=== PATIENT | male | born 1955 | race Caucasian/White ===

== ENCOUNTER 2020-10-17 06:54 | Outpatient (CLI) | payer MEDICARE, OTHER, SELFPAY ==
--- NOTE | 2020-10-17 07:19 | NMCV_ITS ---
NM gwendolyn perf SPECT r/s* [id number] Reynaldo Bo Age: 65 Gender: M : 1955 Exam Date: 10/17/2020 08:05 Ordering Phys: Sadaf Chacko Technologist: KHALIF Rojas Exam Location: [facility] Indications: CARDIAC ARRHYTHMIA STRESS TEST Please see separate stress test report in Ephiphany for full findings IMAGE PROTOCOL Rest/Stress 1 Exercise Day Radiopharmaceutical Dose (mCi) Administration Site Administered by Rest: Tc-99m 10.7 IV KHALIF Renee Sestamibi Stress:Tc-99m 33.0 IV KHALIF Rojas Sestamibhavesh Rest: 17-Oct-2020 60 Discovery 630 Stress: 17-Oct-2020 30 Discovery 630 Radiopharmaceutical was injected at 86 % maximum heart rate. Images obtained in supine and prone position. SPECT RESULTS Technical Quality: Excellent Raw Data Analysis: Normal Image Corrections: No attenuation or motion correction applied Summed Stress Score: 17 Summed Rest Score: 13 Summed Difference Score: 6 PERFUSION FINDINGS Large sized perfusion abnormality of moderate to severe severity of entire inferior and basal to mid inferolateral augustin on rest images with mild reversibility in inferior and inferolateral augustin on stress images. FUNCTIONAL RESULTS (calculated via Gated SPECT) Stress Image LV EF (%): 46 Stress EDV (mL):181 TID: 0.95 Stress ESV (mL):97 FUNCTIONAL FINDINGS: The left ventricle is normal in size. Transient Ischemia Dilatation of 0.95. The left ventricular ejection fraction is mildly reduced with a value of 46%. There is mild hypokinesis of inferior wall. Increased end diastolic and end systolic volumes. IMPRESSIONS 1. Large sized perfusion abnormality of moderate to severe severity of entire inferior and basal to mid inferolateral augustin with mild reversibility in inferior and inferolateral augustin. 2. 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 3. The left ventricular ejection fraction is mildly reduced with a value of 46%. 4. There is mild hypokinesis of inferior wall. 5. No prior similar studies to compare. Natalie Del Valle MD (Electronically Signed) Final Date: 18 October 2020 22:59 S
--- NOTE | 2020-10-17 07:19 | ECG_ITS ---
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 Interpretive Statements NAME OF STUDY: EXERCISE SESTAMIBI STRESS TEST INDICATION: CHEST pain, frequent ventricular ectopy Baseline blood pressure of 140/84 mm Hg, heart rate 78 beats per minute and oxygen saturation of 97%. EKG showed normal sinus rhythm, normal axis with frequent isolated PVCs. Normal ST and T's. The patient exercised for 6 minutes on a standard Fran protocol. Patient attained a maximum heart rate of 134 beats per minute(87% of the maximum predicted heart rate) with a blood pressure at the peak exercise of 172/94 mm Hg and oxygen saturation of 85%. The EKG at the peak exercise revealed sinus tachycardia with 1 and half to 2 mm horizontal to upsloping ST depression in inferolateral leads. Patient did [not have any chest pain or any significant arrhythmis with the exercise. Patient developed intraprocedural shortness of breath that resolved by discharge. During the recovery phase, there were no new changes. Biphasic T waves noted in recovery in lead II, III, aVF, V5 and V6. Blood pressure at the end of the recovery phase was [168/94 mm Hg with a heart rate of 89 beats per minute and oxygen saturation 98%. Frequent isolated PVCs noted in recovery. CONCLUSION: 1. Positive EKG response to treadmill exercise. 2. No exercise-induced chest pain or cardiac arrhythmia. 3. Fair exercise tolerance, attained a maximum of 7 METs. Maximum VO2 of 24.5 mL/kg/min. 4. Baseline hypertension with normal response to exercise. 5. Perfusion scan will be documented separately. Electronically Signed On 10-17-2020 13:23:50 OLERICULTURIST by Natalie Del Valle M.D. [id number]
[2020-10-17 07:48] VITALS: BMI 28.1
[2020-10-17 09:22] VITALS: BP 168/94; PULSE 90
--- NOTE | 2020-10-17 12:45 | USCV_ITS ---
Reynaldo Bo Age: 65 Gender: M : 1955 Exam Date: 10/17/2020 09:36 Ordering Phys: Sadaf Chacko Technologist: Melissa Pierson Exam Location: [facility] [place] Indication: IRREGULAR HB BP: 140 / 70 HR: 77 Rhythm: Sinus Technical Quality: Adequate MEASUREMENTS (Male / Female) Normal Values 2D ECHO LV Diastolic Diameter PLAX 4.6 cm 4.2 - 5.9 / 3.9 - 5.3 cm LV Systolic Diameter PLAX 3.0 cm LV Chamber Size 4.0 cm IVS Diastolic Thickness 1.4 cm 0.6 - 1.0 / 0.6 - 0.9 cm IVS Systolic Thickness 1.6 cm LVPW Diastolic Thickness 1.1 cm 0.6 - 1.0 / 0.6 - 0.9 cm LVPW Systolic Thickness 1.3 cm RV Chamber Size 2.6 cm LVOT Diameter 2.0 cm LV Ejection Fraction 2D Teich 65.6 % LV Ejection Fraction MOD 2C 48.9 % LV Ejection Fraction 2C AL 52.5 % LA Diameter 3.9 cm LA Width 3.1 cm LA Height 5.4 cm RA Width 3.1 cm RA Height 4.0 cm Aorta at Sinotubular Diameter 3.9 cm M-MODE LV Diastolic Diameter MM 5.2 cm 4.2 - 5.9 / 3.9 - 5.3 cm LV Systolic Diameter MM 3.4 cm LV Ejection Fraction MM Teich 62.9 % IVS Diastolic Thickness MM 1.0 cm 0.6 - 1.0 / 0.6 - 0.9 cm IVS Systolic Thickness MM 1.8 cm LVPW Diastolic Thickness MM 1.1 cm 0.6 - 1.0 / 0.6 - 0.9 cm LVPW Systolic Thickness MM 1.6 cm RV Diastolic Diameter MM 0.9 cm Aortic Annulus Diameter 3.9 cm LA Ao Ratio MM 1.1 MV E Point Septal Separation 0.9 cm DOPPLER AV Peak Velocity 132.0 cm/s LVOT Peak Velocity 68.0 cm/s AV Area Cont Eq vti 2.5 cm squared AV Area Cont Eq pk 1.7 cm squared MV Area PHT 5.5 cm squared Mitral E to A Ratio 0.7 MV E' Velocity 38.0 cm/s Mitral E to MV E' Ratio 10.5 Mitral E to LV E' Lateral Ratio 9.4 Mitral E to LV E' Septal Ratio 12.2 TR Peak Velocity 106.9 cm/s TR Peak Gradient 4.6 mmHg TR Mean Velocity 60.0 cm/s TR Mean Gradient 1.8 mmHg TR Velocity Time Integral 27.3 cm TV Peak E Velocity 77.0 cm/s Right Atrial Pressure 3.0 mmHg Pulmonary Artery Systolic Pressu 7.6 mmHg PV Peak Velocity 62.0 cm/s RV Acceleration Time 0.1 s RV Ejection Time 0.3 s RV AcT/ET 0.5 FINDINGS Left Ventricle Dyskinetic basal and mid inferior wall segment. Mild hypokinesia of the apical septum. Overall ejection fraction around 45 to 50%.Grade I/IV diastolic dysfunction (abnormal relaxation filling pattern), normal to mildly elevated filling pressures. Right Ventricle Normal right ventricular size and systolic function. Right Atrium The right atrium is normal in size. Left Atrium The left atrium upper limit of normal size Mitral Valve Mildly thickened mitral valve. Aortic Valve Mild aortic valve regurgitation. Thickened aortic valve Tricuspid Valve Trace tricuspid valve regurgitation. Pulmonic Valve Structurally normal pulmonic valve without significant stenosis. There is no pulmonic regurgitation. Pericardium Normal pericardium without effusion. Aorta Normal ascending aorta dimension. CONCLUSIONS Normal LV size with diminished ejection fraction of 45 to 50%. Wall motion of normalities as mentioned above. Type I diastolic dysfunction. The left atrium upper limit of normal size. Mild aortic valve regurgitation. Thickened aortic valve. Mildly thickened mitral valve. There is no pericardial effusion. There are no intracardiac masses. Dr Philomena Garcia MD FACC (Electronically Signed) Final Date: 27 October 2020 18:43 S
== END 2020-10-17 06:55 | disposition home or self-care (01) ==
LOC: CDL 06:57
PROVIDERS: PCP Nurse Practitioner Family; Visit Provider Nurse Practitioner Family
DX: I49.3 Ventricular premature depolarization (principal); I49.8 Other specified cardiac arrhythmias; I49.9 Cardiac arrhythmia, unspecified; I35.8 Other nonrheumatic aortic valve disorders; R07.9 Chest pain, unspecified; I10 Essential (primary) hypertension
CPT/HCPCS: 78452; 93017; 93306; A9500

== ENCOUNTER → 2021-01-29 10:19 | Outpatient (BNVA) | payer MEDICARE, OTHER, SELFPAY | PROVIDERS: PCP Nurse Practitioner Family; Visit Provider Internal Medicine Cardiovascular Disease | DX: Z20.822 Contact with and (suspected) exposure to COVID-19 (principal) | CPT/HCPCS: 87635 ==

== ENCOUNTER 2021-02-04 07:42 | Day surgery (SDC) | payer MEDICARE, OTHER, SELFPAY ==
[2021-01-29 10:08] LABS: Basophils # 0.1 10^3/uL (0.0-0.1); Eosinophils # 0.2 10^3/uL (0.0-0.8); Hematocrit 53.1 % (42.0-52.0); Hemoglobin 17.1 g/dL (11.7-16.6); Lymphocytes % 32.4 %; Mean Corpuscular HGB Conc 32.2 g/dL (30.0-36.0); Mean Corpuscular Hemoglobin 30.1 pg (28.0-34.0); Mean Corpuscular Volume 93.5 fL (80-94); Mean Platelet Volume 10.5 fL (7.4-10.4); Monocytes # 0.4 10^3/uL (0.2-0.9); Monocytes % 6.9 %; Neutrophils # 3.54 10^3/uL (1.8-7.7); Neutrophils % 56.5 %; Nucleated Red Blood Cells % 0 %; Platelet Count 247 10^3/cmm (130-400); Red Blood Count 5.68 10^6/uL (4.1-5.3); Red Cell Distribution Width 13.2 % (12.1-15.1); White Blood Count 6.3 10^3/uL (4.0-10.0)
[2021-01-29 10:22] LABS: INR 0.99 (0.8-1.2)
[2021-01-29 10:52] LABS: Anion Gap 11.8 (5-19); Blood Urea Nitrogen 16 mg/dL (8-23); Calcium 9.8 mg/dL (8.5-10.5); Carbon Dioxide 31 mmol/L (22-29); Chloride 102 mmol/L (98-107); Glomerular Filtration Rate 84.4 mL/min (90-130); Glucose 100 mg/dL (65-115); Osmolality Calculated 291 mOsm/kg (285-295); Potassium 4.8 mmol/L (3.5-5.1); Sodium 140 mmol/L (136-145)
[2021-02-04] VITALS (24 sets, daily range): BP systolic 104–146; BP diastolic 66–91; PULSE 63–85; RESP 11–23; TEMP 36.7–36.8; O2SAT 93–97; BMI 29.5
--- NOTE | 2021-02-04 07:30 | XACV_ITS ---
Ht: 191 cm Wt: 107 kg BSA: 2.40 m2 Gender: Male : 1955 Any Known Allergies: No known allergies Exam Priority: Routine Procedure(s): Procedure Description: Diagnostic procedure Diagnostic Cath Status: Elective Diagnostic Findings * LM has 0% stenosis. * mLAD: Severe 75% stenosis, CHRISTIANNE: 3 flow. * 1st Diag: Severe 99% stenosis, CHRISTIANNE: 2 flow. * mCIRC: Severe 100% stenosis, CHRISTIANNE: 0 flow. * mRCA: Severe 100% stenosis, CHRISTIANNE: 0 flow. * aMarg2: Severe 90% stenosis, CHRISTIANNE: 3 flow. * dLAD to dCIRC collateralization. * Coronary angiography shows right dominance. Conclusions 1. Indication for Clinical Quality Assurance Specialist worsening of angina, abnormal stress test 2. 1-Left main is normal without significant stenosis2-LAD is moderate size and caliber vessel with mid 75% stenosis, diagonal 1 is small caliber and size vessel with 99% ostial occlusion with CHRISTIANNE II flow3-LCx is moderate size and caliber vessel possibly codominant with mid chronic total occlusion however distal vessel fills retrogradely with collaterals from left to left, obtuse marginal 1 is moderate size and caliber vessel without significant stenosis4-RCA is chronically 100% occluded in the mid with also 90% stenosis in proximal acute marginal branch 3. . 4. No significant gradient across the aortic valve was noted.. 5. There is severe coronary artery disease with three vessel disease. 6. The apex, mid posterior, mid septum, anterolateral, mid inferior augustin are hypokinetic. 7. Mild left ventricular systolic dysfunction. Ejection fraction of 45%. Recommendations * 1-Return to ICU for close monitoring and routine PCI care 2-Continue IV heparin drip as per ACS protocol 3-Dc Plavix for possible CABG 4-Statin with LDL goal of 70 mg/dl, aspirin 81 mg p.o. daily for life long 5-CT surgery consults for CABG 6-Optimal medical management for AK 7-Follow up with cardiology in four weeks and establish care with primary care physician. Diagnostic RX Recommendation: CABG Ventriculography Ejection Fraction: 45.0 % Left Ventriculography Findings: * Anterior apical and mid to distal inferior and mid to distal lateral wall severe hypokinesis, moderately depressed LV function 45%. Pressures Phase:Rest AO : 101 / 67 ( 83 ) @ 5:33:00 AM 118 / 69 ( 91 ) @ 5:44:00 AM 117 / 69 ( 91 ) @ 5:44:00 AM LV : 113 / 7 / @ 5:43:00 AM 117 / 7 / @ 5:44:00 AM 123 / 0 / @ 5:44:00 AM 124 / 0 / @ 5:44:00 AM Valves Phase:DefaultPhase AV : 6.0 @ 10:52:06 AM AV Mean Gradient: 11.0 @ 10:52:06 AM Clinical Evaluation EBL: 5mL-10mL Procedural Details Procedure Consent Obtained. Pre-Procedure Time Out. Identified patient by full name and date of as verbalized by the patient/guarantor. Does the consent match the physician's order: Yes. Accurate & Complete Informed Consent: Yes. Inpatient/Outpatient History & Physical on Chart: Yes. If H&P is completed, is and addenduem needed: No; If yes, is the addendum complete: N/A. Visualize and Verify Site with Patient/Guarantor: N/A. Relevant Radiology Images available: N/A. Pre-op teaching completed and patient verbalized understanding. The risks, benefits, and alternatives of sedation and/or procedure were discussed by physician. The patient agrees to continue. Procedure started. Correct patient, site and procedure confirmed by cath team. Current diagnosis: Chest Pain. PERRLA. Strong, equal hand tube man bilaterally. Lungs clear x 5 lobes. IV Site on Arrival: 20 gauge in the left anticubital. Pre Procedural Pulses: right dorsalis pedis was 1+. Pre Procedural Pulses: left dorsalis pedis was Doppled. Pre Procedural Pulses: bilateral posterior tibial was 2+. Pre Procedural Pulses: bilateral radial was 3+. Oxygen started at 2liters/min via nasal canula. right groin was prepped with chloroprep then draped in the usual sterile fashion. right radial was prepped with chloroprep then draped in the usual sterile fashion. Physician notified. Baseline sample Acquired. HR: 78 BPM. [facility] Clinical Fraility Score: 3: Managing Well. Clinical Quality Assurance Specialist Indications: Worsening Angina. Chest Pain Symptom Assessment: Typical Angina Symptoms. Physician arrived. Physician scrubbed in. Immediate Pre-Procedure Time Out. Correct Patient: Yes; Correct Procedure: Yes; Correct Site: Yes; Correct Patient Position: Yes; Correct Supplies: Yes; Dried Flammable Prep: Yes; Blood Products Available: N/A;. Lidocaine 1% infiltrated to the right radial. Arterial access obtained. A 5 botswanan TIG catheter in over wire. Catheter redirected to the LCA. Catheter redirected to the LV. Catheter removed over the exchange wire. A 5 botswanan Angled Pig catheter in over wire. EDP Sample taken: LV 113/7,15; HR: 69 BPM; SpO2: 98%. EDP Sample taken: LV 117/7,14; HR: 70 BPM; SpO2: 97%. LV gram performed in FOWLER @ 10 mL/second for a total of 30 mL. EDP Sample taken: LV 123/0,15; HR: 81 BPM; SpO2: 97%. Pullback taken: LV 124/-1,15; AO 118/69(91); Mean: 11mmHg, Peak to Peak: 6mmHg, SEP: 15sec/min; HR: 67 BPM; SpO2: 98%. Catheter removed over the exchange wire. Physician scrubbed out. A TR Band was successful obtaining hemostatsis at the Right Radial artery insertion site. TR band placed. Hemostasis obtained. Post Procedure: Pulses reassessed and unchanged. PERRLA. Strong, equal hand tube man bilaterally. No VTE prophylaxis required. No VTE prophylaxis required. Medication's Wasted: Lidocaine 1% = 18 mL. Medication's Wasted: Heparin = 1000 units. Medication's Wasted: Nitro = 49.8 mg. Total IV fluids: 32.4 mL. Contrast type used: Visipaque 320 mgI/mL, 500 mL bottle. Post-op diagnosis: multivessel CAD. Complications: none. Estimated blood loss: 5mL-10mL. Estimated blood loss: 5mL-10mL. Procedure completed. Patient transferred by wheelchair to 1st floor. Vital chart was stopped. Access Site Site: Right Radial artery Sheath Size: 6 Fr Hemostasis Method: TR Band Hemostasis Success: Successful Procedure Medications Start: 10:29 AM Stop: 10:29 AM Medication: Versed Amount: 1 mg Route: I.V. Start: 10:29 AM Stop: 10:29 AM Medication: Fentanyl Amount: 50 mcg Route: I.V. Start: 10:23 AM Stop: 10:23 AM Medication: Versed Amount: 1 mg Route: I.V. Start: 10:23 AM Stop: 10:23 AM Medication: Fentanyl Amount: 50 mcg Route: I.V. Start: 10:30 AM Stop: 10:30 AM Medication: Nitrogylcerin Amount: 200 mcg Route: I.A. Start: 10:33 AM Stop: 10:33 AM Medication: Heparin Amount: 5000 units Route: I.V. I, the attending physician, have reviewed and verified all procedure medications. Yes, all medications given per verbal order History/Risk Factors Hypertension: No Dyslipidemia: No Peripheral Arterial Disease (PAD): No Myocardial Infarction (AK): No Obesity: No Renal Disease: No Tobacco Use: Never Prior Interventions PCI: No CABG: No Valve Surgery: No Report Signatures Finalized by Lashon Taylor MD on 02/11/2021 01:46 PM
--- NOTE | 2021-02-04 10:13 | W.PM.OPSFHP ---
Same Day Surgery H&P Indication for Procedure/HPI DATE OF PROCEDURE: February 04, 2021 CHIEF COMPLAINT/INDICATIONFOR SURGICAL PROCEDURE: Abnormal stress test, arrhythmia/PVCs, shortness of breath chest pain PREOP DIAGNOSIS: LV dysfunction, abnormal stress test, arrhythmia/PVCs PLANNED PROCEDRUE: Operation Date: 02/04/21 08:30 Proposed Procedures p left Cardiac Catheterization 25303 R03.0(Left) - Lashon Taylor MD 65-year-old male past medical history significant for hypertension hyperlipidemia strong family stiff coronary disease for worsening of arrhythmia/PVCs LV dysfunction with mild depression of LV function and abnormal stress test is here for left heart cath. Patient has been explained all risk benefit and already for the procedure by myself. He has been explained the risk of stroke arrhythmia major minor bleed urgent emergent bypass surgery in worse case scenario . He has been explained risk of hematoma infection bruising. Patient has taken 300 mg of Plavix last night and 75 mg this morning. We will proceed with left heart cath and PCI if indicated Medications/Allergies* Allergies/Adverse Reactions Allergy/AdvReac Type Severity Reaction Status Date / Time No Known Allergies Allergy Verified 12/15/20 09:43 Pertinent History/Comorbid Conditions* Medical History (Updated 12/17/20 @ 08:29 by Natalie Del Valle MD) Abnormal cardiovascular stress test Frequent PVCs LV dysfunction Family History (Updated 12/15/20 @ 09:44 by Cindy Eric RN) Diabetes Mother Stroke Father Brother Denies family history of CAD (coronary artery disease) Hyperlipidemia Hypertension Social History Smoking and tobacco status: never smoked Alcohol intake: current Alcohol intake frequency: holidays/special occasions only Pertinent Exam Findings alert, oriented x 3, clear to auscultation bilaterally and regular rate & rhythm GENERAL: Patient is alert, awake and oriented x3. NECK: No jugular vein distension. HEENT: No cyanosis. No icterus. No pallor. HEART: Regular S1 and S2. No murmur, rub or gallop. LUNGS: Clear to auscultate bilaterally. CENTRAL NERVOUS SYSTEM: Grossly nonfocal. 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
[2021-02-04] MEDS: aspirin 81 mg EC Tablet PO (12:18)
[2021-02-04] MEDS: atorvastatin 40 mg Tablet 20 MG PO (12:18)
--- NOTE | 2021-02-04 13:46 | USCV_ITS ---
Reynaldo Bo Age: 65 Gender: M : 1955 Exam Date: 02/04/2021 14:20 Ordering Phys: Natalie Del Valle MD ([email or web address]) Technologist: Graciela Ignacio [place]am Location[place] [facility] [place] Indication: PRE CABG Risk Factors: Previous Vascular Surgery: Right Brachial BP: / Left Brachial BP: / Right Left Velocity (cm/s) Spectral Plaque Velocity (cm/s) Spectral Plaque Syst/Diast Broadening Syst/Diast Broadening 117.00/18.10 Prox CCA 158.50/ 14.00 129.00/23.30 Mid CCA 124.30/ 21.80 101.40/24.30 Distal CCA 101.20/ 25.00 57.30/ 18.80 Prox ICA 61.70 / 14.30 67.00/ 23.20 Mid ICA 69.50 / 20.90 72.60/ 26.00 Distal ICA 63.90 / 15.40 67.80 ECA 101.20 0.56 ICA/CCA 0.44 Not Vertebral Antegrade Visualized / cm/s 38.80/ 9.30 cm/s Tri Subclavian Tri 213.9 181.7 0 0 FINDINGS Minimal plaques at the bifurcations bilaterally Intimal thickening in the common carotid arteries bilaterally CONCLUSIONS Minimal plaques at the bifurcations bilaterally. Less than 50% stenosis bilaterally Dr Philomena Garcia MD [facility] (Electronically Signed) Final Date: 04 February 2021 23:34 S
--- NOTE | 2021-02-04 13:46 | USCV_ITS ---
Reynaldo Bo Age: 65 Gender: M : 1955 Exam Date: 02/04/2021 14:09 Ordering Phys: Natalie Del Valle MD ([email or web address]) Technologist: Graciela Ignacio Exam Location: [facility] [place] Indication: PRE CABG RIGHT LEFT LOWER EXTREMITY Diameter Diameter (cm) (cm) 0.69 High Thigh 0.53 0.36 Mid Thigh 0.42 0.45 Above Knee 0.36 0.36 Below Knee 0.32 0.22 Mid Calf 0.23 0.27 Ankle 0.33 RIGHT LEFT UPPER EXTREMITY The Upper Extremity section is not evaluated at this time Findings Patent veins bilaterally with no evidence of thrombosis Conclusions Patent normal caliber superficial veins bilaterally in the lower extremities with no evidence of thrombosis The venous dimensions as mentioned above Dr Philomena Garcia MD FAC (Electronically Signed) Final Date: 04 February 2021 23:29 S
== END 2021-02-04 16:47 | disposition home or self-care (01) ==
LOC: CCL 07:42 → CSU 11:16
PROVIDERS: PCP Nurse Practitioner Family; Visit Provider Internal Medicine Cardiovascular Disease
DX: I65.23 Occlusion and stenosis of bilateral carotid arteries (principal); I10 Essential (primary) hypertension; E78.5 Hyperlipidemia, unspecified; Z01.810 Encounter for preprocedural cardiovascular examination
CPT/HCPCS: 36415; 80048; 85025; 85610; 93452; 93880; 93970; C1769; C1887; C1894; J1644; J2250; J3010; J3490; J7030; Q0163; Q9967

== ENCOUNTER → 2021-03-04 13:01 | Outpatient (BNVA) | payer MEDICARE, OTHER, SELFPAY | PROVIDERS: PCP Nurse Practitioner Family; Visit Provider Thoracic Surgery (Cardiothoracic Vascular Surgery) | DX: I25.10 Atherosclerotic heart disease of native coronary artery without angina pectoris (principal) | CPT/HCPCS: 87635 ==

== ENCOUNTER 2021-03-08 11:16 | Emergency (ER) | payer MEDICARE, OTHER, SELFPAY ==
[2021-03-08 11:44] VITALS: BP 158/90; PULSE 85; RESP 18; TEMP 37; O2SAT 97; BMI 29.0
[2021-03-08 12:04] VITALS: O2SAT 96
--- NOTE | 2021-03-08 12:22 | ECG_ITS ---
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 Measurements Intervals Carlyle Rate: 79 P: 53 ND: 162 QRS: -24 QRSD: 113 T: 24 QT: 365 QTc: 420 Interpretive Statements SINUS RHYTHM No previous ECG available for comparison Electronically Signed On 03-08-2021 15:35:47 CDT by Yoandy Marin M.D. [id number]
--- NOTE | 2021-03-08 12:22 | XRR_ITS ---
PROCEDURE INFORMATION: Exam: XR Chest Exam date and time: 03/08/2021 12:34 PM Age: 65 years old Clinical indication: Cough; Additional info: Fatigue, cough TECHNIQUE: Imaging protocol: XR of the chest. Views: 1 view. COMPARISON: CR XR chest 2V* [id number] 03/04/2021 12:43 PM FINDINGS: Lungs: Unremarkable. No consolidation. Pleural spaces: Unremarkable. No pleural effusion. No pneumothorax. Heart/Mediastinum: Unremarkable. No cardiomegaly. Bones/joints: Unremarkable. XR/XR chest 1V portable [id number] IMPRESSION: No acute findings.
--- NOTE | 2021-03-08 12:23 | ED_ITS ---
HPI - URI/Sore Throat General: Chief Complaint: Headache Stated Complaint: COLD SYMPTOMS Time Seen by Provider: 03/08/21 12:02 Source: patient Mode of arrival: ambulatory Limitations: no limitations History of Present Illness: HPI Narrative: Patient is a nice 65-year-old male who presents to ED today along with his for evaluation of nasal drainage, scratchy throat, mild cough, and fatigue. Patient tells me he normally would not have bothered coming to the ED however he is scheduled for a CABG tomorrow by Dr. Streeter. He had preop labs/work-up performed on Tuesday but he states he felt normal at that visit. He tells me yesterday he began noticing some nasal stuffiness and drainage. He thought it was initially related to allergies and possibly due to the COVID swab that he had performed. He complains of some mild post nasal drainage that he states is making his throat scratchy. He reports a mild non-productive cough. He does report a little twinge in my chest when he coughs. He reports fatigue-states he has never had fatigue related to his CAD. No fevers. MD elicited complaint: cough, sore throat, rhinorrhea and nasal congestion Onset (ago): day(s) (yesterday) Severity: mild Description of mucous: clear Able to tolerate fluids by mouth: Yes Exacerbating factors: nothing Relieving factors: nothing Associated symptoms: Deny chills, ear or mastoid pain, fever(s), headache(s), nasal congestion, nausea, sinus pain or vomiting Treatments prior to arrival: none Review of Systems Const: Reports: fatigue; Denies: fever(s), chills or body aches Eyes: Denies: change in vision, blurry vision or photophobia ENMT: Reports: odynophagia ( scratchy ), nasal discharge and post nasal drip; Denies: ear or mastoid pain, nasal congestion or sinus pain Card: Reports: chest pain (when coughing); Denies: palpitations, irregular heart rhythm, edema, lightheadedness, syncope or pre-syncope Resp: Reports: non-productive cough; Denies: dyspnea, productive cough, wheezing, change in phlegm color, hemoptysis or chest congestion GI: Denies: nausea or vomiting Musc: Denies: neck pain Skin/Breast: Denies: rash Neuro: Denies: headache(s), numbness in extremities, weakness in extremities, sensory changes or dizziness [facility] ED PFSH: Medical History (Updated 03/08/21 @ 16:09 by ELIZABETH Beasley) 3-vessel coronary artery disease Abnormal cardiovascular stress test Frequent PVCs LV dysfunction Family History Father Stroke Brother Stroke Mother Diabetes Denies family history of CAD (coronary artery disease) Hyperlipidemia Hypertension Social History Smoking and tobacco status: never smoked Alcohol intake: current Alcohol intake frequency: holidays/special occasions only Physical Exam Const: COMMON NORMALS: no acute distress, patient oriented x3, no limitations and alert GENERAL APPEARANCE: cooperative HENMT: COMMON NORMALS: normocephalic, atraumatic, hearing grossly normal bilaterally, external ears normal, EAC's normal, TM's normal bilaterally, Normal external nose present, Normal nasal mucous membranes and turbinates present, moist oral mucous membranes and oropharynx normal HEAD & SCALP: normal to inspection, normocephalic and atraumatic FACE & SINUS: normal facial exam and sinuses nontender NOSE: Normal external nose present and Normal nasal mucous membranes and turbinates present EXTERNAL EAR: Yes external ears normal EXTERNAL AUDITORY CANAL: EAC's normal TYMPANIC MEMBRANE: TM's normal bilaterally MOUTH: Normal oral and palatal mucosa present, lip normal and tongue normal THROAT: posterior oropharynx normal, tonsils normal and uvula midline Eye: GENERAL EYE: appearance normal, both eyes and all related structures Neck/C-Spine: COMMON NORMALS: full ROM, no lymphadenopathy and no meningeal signs Resp: COMMON NORMALS: normal respiratory effort and clear to auscultation bilaterally AUSCULTATION: clear to auscultation bilaterally Cardio: COMMON NORMALS: regular rate and regular rhythm RATE: regular rate RHYTHM: regular rhythm Neuro: COMMON NORMALS: patient oriented x3 SENSORIUM/ORIENTATION: Yes alert MENINGEAL SIGNS: Yes no meningeal signs Skin: COMMON NORMALS: no rashes or lesions noted GENERAL SKIN EXAM: no rashes or lesions noted Course ED course: Patient states he is already feeling better. Labs show some nonspecific LFTs. He is not complaining of abdominal pain, nausea, vomiting, or changes to bowel habits. No fevers. Covid is negative. CXR is normal. EKG and repeat EKG showing no ischemic changes. Initial troponin elevated at 65 with a negative delta. Spoke to Dr. Streeter who at this time recommends patient still check in for his surgery and they will reassess him at that time for any worsening symptoms and determine whether to proceed with surgery or reschedule. Consultations: Consultation #1: Dr. Streeter-recommends pt still check in at 5am for his procedure tomorrow and they will reassess him again and determine whethe r to proceed with surgery at that time. Vital Signs: Vital signs: Vital Signs Temperature 98.6 F 03/08/21 11:44 Pulse Rate 84 03/08/21 15:55 Respiratory Rate 17 03/08/21 13:08 Blood Pressure 144/86 03/08/21 15:55 Pulse Oximetry 98 03/08/21 15:55 MDM - URI/Sore Throat Lab Data: Labs: Lab Results 03/08/21 03/08/21 03/08/21 Range/Units 13:04 13:04 13:04 WBC 5.8 (4.0-10.0) 10^3/ uL RBC 5.28 (4.1-5.3) 10^6/u L Hgb 16.2 (11.7-16.6) g/dL Hct 49.3 (42.0-52.0) % MCV 93.4 (80-94) fL MCH 30.7 (28.0-34.0) pg MCHC 32.9 (30.0-36.0) g/dL RDW 13.2 (12.1-15.1) % Plt Count 208 (130-400) 10^3/c mm MPV 10.3 (7.4-10.4) fL Neut % (Auto) 53.5 % Lymph % (Auto) 23.7 % Pitkin % (Auto) 14.3 % Eos % (Auto) 7.3 % Baso % (Auto) 0.9 % Neut # (Auto) 3.08 (1.8-7.7) 10^3/u L Lymph # (Auto) 1.4 (0.8-4.8) 10^3/u L Pitkin # (Auto) 0.8 (0.2-0.9) 10^3/u L Eos # (Auto) 0.4 (0.0-0.8) 10^3/u L Baso # (Auto) 0.1 (0.0-0.1) 10^3/u L Nucleated RBC % (a uto) 0 % Nucleated RBCs # 0.0 /100WBC Sodium 138 (136-145) mmol/L Potassium 5.0 (3.5-5.1) mmol/L Chloride 103 (98-107) mmol/L Carbon Dioxide 27 (22-29) mmol/L Anion Gap 13.0 (5-19) BUN 11 (8-23) mg/dL Creatinine 0.8 (0.7-1.2) mg/dL GFR Calculation 96.7 (90-130) mL/min Glucose 112 (65-115) mg/dL Calculated Osmolal ity 286 (285-295) mOsm/k g Calcium 9.0 (8.5-10.5) mg/dL Total Bilirubin 1.6 H (0.15-1.2) mg/dL AST 50 H (0-40) U/L ALT 54 H (0-41) U/L Alkaline Phosphata se 154 H (40-130) IU/L Troponin T Gen 5 n g/L 65 H (0-15) ng/L Total Protein 6.3 L (6.6-8.7) g/dL Albumin 4.2 (3.5-5.2) g/dL Globulin 2.1 (1.3-4.6) g/dL SARS-CoV-2 Ag (Rap id) (Negative) 03/08/21 03/08/21 Range/Units 13:06 15:15 WBC (4.0-10.0) 10^3/ uL RBC (4.1-5.3) 10^6/u L Hgb (11.7-16.6) g/dL Hct (42.0-52.0) % MCV (80-94) fL MCH (28.0-34.0) pg MCHC (30.0-36.0) g/dL RDW (12.1-15.1) % Plt Count (130-400) 10^3/c mm MPV (7.4-10.4) fL Neut % (Auto) % Lymph % (Auto) % Pitkin % (Auto) % Eos % (Auto) % Baso % (Auto) % Neut # (Auto) (1.8-7.7) 10^3/u L Lymph # (Auto) (0.8-4.8) 10^3/u L Pitkin # (Auto) (0.2-0.9) 10^3/u L Eos # (Auto) (0.0-0.8) 10^3/u L Baso # (Auto) (0.0-0.1) 10^3/u L Nucleated RBC % (a uto) % Nucleated RBCs # /100WBC Sodium (136-145) mmol/L Potassium (3.5-5.1) mmol/L Chloride (98-107) mmol/L Carbon Dioxide (22-29) mmol/L Anion Gap (5-19) BUN (8-23) mg/dL Creatinine (0.7-1.2) mg/dL GFR Calculation (90-130) mL/min Glucose (65-115) mg/dL Calculated Osmolal ity (285-295) mOsm/k g Calcium (8.5-10.5) mg/dL Total Bilirubin (0.15-1.2) mg/dL AST (0-40) U/L ALT (0-41) U/L Alkaline Phosphata se (40-130) IU/L Troponin T Gen 5 n g/L 63 H (0-15) ng/L Total Protein (6.6-8.7) g/dL Albumin (3.5-5.2) g/dL Globulin (1.3-4.6) g/dL SARS-CoV-2 Ag (Rap id) Negative (Negative) Imaging Data^: CXR: Radiologist's impression: [address] [address] XRay Report Signed Patient: Reynaldo Bot #: [id number] : 4Acct#:[id number] Age/Sex: 65 / MADM Date: 03/08/21 Loc: ERRoom/Bed: Attending Dr: Ordering Provider/Ordering MD: Zoë Espinal Date of Service: 03/08/21 Procedure(s): XR chest 1V portable [id number] Accession Number(s): [id number] Report Number: [id number] PROCEDURE INFORMATION: Exam: XR Chest Exam date and time: 03/08/2021 12:34 PM Age: 65 years old Clinical indication: Cough; Additional info: Fatigue, cough TECHNIQUE: Imaging protocol: XR of the chest. Views: 1 view. COMPARISON: CR XR chest 2V* [id number] 03/04/2021 12:43 PM FINDINGS: Lungs: Unremarkable. No consolidation. Pleural spaces: Unremarkable. No pleural effusion. No pneumothorax. Heart/Mediastinum: Unremarkable. No cardiomegaly. Bones/joints: Unremarkable. XR/XR chest 1V portable [id number] IMPRESSION: No acute findings. Dictated By:Jenny Whiting MD Signed By:Jenny Whitingigned Date/Time:03/08/211410 DD/ 140 Discharge Plan Discharge Patient Disposition: Home Clinical Impression: Post-nasal drainage Condition: Stable Prescriptions: No Action aspirin 81 mg tablet,delayed release (DR/EC) 81 mg PO DAILY Qty: 30 RF: 0 nitroglycerin 0.4 mg tablet, sublingual 0.4 mg sublingual Q5M PRN (Reason: chest pain) Qty: 30 RF: 3 metoprolol succinate 25 mg tablet extended release 24 hr 12.5 mg PO DAILY@2200 RF: 0 multivitamin Tablet 1 tab PO DAILY@220 RF: 0 mupirocin 2 % ointment See Rx Instructions .ROUTE .COMPLEX RF: 0 chlorhexidine gluconate 0.12 % mouthwash See Rx Instructions .ROUTE .COMPLEX RF: 0 Vitamin C 1 tab PO DAILY@2200 RF: 0 Vitamin D3 1 tab PO DAILY@2200 RF: 0 atorvastatin 20 mg tablet 20 mg PO DAILY@2200 RF: 0 isosorbide mononitrate 10 mg tablet 10 mg PO BID@1100,2200 RF: 0 Discharge Orders: Discharge ED (Routine); Ordered 03/08/21 Ordered By: Zoë Espinal Coding Level of Care Code ED Administrative Nursing Supervisor for Chg Fwd Exam Detailed
[2021-03-08 13:08] VITALS: BP 141/88; PULSE 83; RESP 17; O2SAT 96
[2021-03-08 13:15] LABS: Basophils # 0.1 10^3/uL (0.0-0.1); Basophils % 0.9 %; Eosinophils # 0.4 10^3/uL (0.0-0.8); Eosinophils % 7.3 %; Hematocrit 49.3 % (42.0-52.0); Hemoglobin 16.2 g/dL (11.7-16.6); Lymphocytes # 1.4 10^3/uL (0.8-4.8); Lymphocytes % 23.7 %; Mean Corpuscular HGB Conc 32.9 g/dL (30.0-36.0); Mean Corpuscular Hemoglobin 30.7 pg (28.0-34.0); Mean Corpuscular Volume 93.4 fL (80-94); Mean Platelet Volume 10.3 fL (7.4-10.4); Monocytes # 0.8 10^3/uL (0.2-0.9); Monocytes % 14.3 %; Neutrophils # 3.08 10^3/uL (1.8-7.7); Neutrophils % 53.5 %; Nucleated Red Blood Cells % 0 %; Platelet Count 208 10^3/cmm (130-400); Red Blood Count 5.28 10^6/uL (4.1-5.3); Red Cell Distribution Width 13.2 % (12.1-15.1); White Blood Count 5.8 10^3/uL (4.0-10.0)
[2021-03-08 13:38] LABS: Alanine Aminotransferase 54 U/L (0-41); Albumin Level 4.2 g/dL (3.5-5.2); Alkaline Phosphatase 154 IU/L (40-130); Aspartate Amino Transferase 50 U/L (0-40); Blood Urea Nitrogen 11 mg/dL (8-23); Carbon Dioxide 27 mmol/L (22-29); Chloride 103 mmol/L (98-107); Globulin 2.1 g/dL (1.3-4.6); Glomerular Filtration Rate 96.7 mL/min (90-130); Glucose 112 mg/dL (65-115); Osmolality Calculated 286 mOsm/kg (285-295); Sodium 138 mmol/L (136-145); Total Bilirubin 1.6 mg/dL (0.15-1.2); Total Protein 6.3 g/dL (6.6-8.7)
[2021-03-08 13:39] LABS: Troponin T (5th) Once 65 ng/L (0-15)
[2021-03-08 13:44] LABS: SARS Covid-2 Antigen Negative (Negative)
--- NOTE | 2021-03-08 15:04 | ECG_ITS ---
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 Measurements Intervals [place] Rate: 80 P: 53 ME: 161 QRS: -23 QRSD: 113 T: 24 QT: 386 QTc: 448 Interpretive Statements SINUS RHYTHM POSSIBLE LEFT ATRIAL ENLARGEMENT [-0.1mV P WAVE IN V1/V2] Compared to ECG 03/08/2021 12:32:14 No significant changes Electronically Signed On 03-09-2021 20:15:13 CDT by Yoandy Marin M.D. [id number]
[2021-03-08 15:55] VITALS: BP 144/86; PULSE 84; O2SAT 98
[2021-03-08 15:55] LABS: Troponin T (5th) Once 63 ng/L (0-15)
[2021-03-08 16:26] VITALS: BP 142/89; PULSE 86; O2SAT 98
== END 2021-03-08 16:25 | disposition home or self-care (01) ==
PROVIDERS: Emergency Provider Physician Assistant
DX: R09.82 Postnasal drip (principal); Z79.82 Long term (current) use of aspirin; I25.10 Atherosclerotic heart disease of native coronary artery without angina pectoris
CPT/HCPCS: 36415; 71045; 80053; 84484; 85025; 87426; 93005; 99283

== ENCOUNTER 2021-03-09 15:15 | Inpatient (IN) | payer MEDICARE, OTHER, SELFPAY ==
[2021-03-04 10:12] VITALS: BMI 29.1
[2021-03-04 10:27] LABS: Basophils # 0.1 10^3/uL (0.0-0.1); Basophils % 0.9 %; Eosinophils # 0.2 10^3/uL (0.0-0.8); Eosinophils % 3.2 %; Hematocrit 52.3 % (42.0-52.0); Hemoglobin 17.1 g/dL (11.7-16.6); Lymphocytes # 2.2 10^3/uL (0.8-4.8); Lymphocytes % 30.9 %; Mean Corpuscular HGB Conc 32.7 g/dL (30.0-36.0); Mean Corpuscular Hemoglobin 30.4 pg (28.0-34.0); Mean Corpuscular Volume 92.9 fL (80-94); Mean Platelet Volume 10.7 fL (7.4-10.4); Monocytes # 0.6 10^3/uL (0.2-0.9); Monocytes % 8.5 %; Neutrophils # 3.92 10^3/uL (1.8-7.7); Neutrophils % 56.2 %; Nucleated Red Blood Cells % 0 %; Platelet Count 240 10^3/cmm (130-400); Red Blood Count 5.63 10^6/uL (4.1-5.3); Red Cell Distribution Width 12.9 % (12.1-15.1)
[2021-03-04 10:31] LABS: Partial Thromboplastin Time 31.1 SECONDS (23.9-36.7)
[2021-03-04 10:39] LABS: Alanine Aminotransferase 31 U/L (0-41); Albumin Level 4.5 g/dL (3.5-5.2); Alkaline Phosphatase 122 IU/L (40-130); Aspartate Amino Transferase 30 U/L (0-40); Chloride 102 mmol/L (98-107); Glucose 108 mg/dL (65-115); Potassium 4.7 mmol/L (3.5-5.1); Sodium 139 mmol/L (136-145)
[2021-03-04 10:41] LABS: Add Urine Microscopic? NO; Charge for UA Resulting for Rev
--- NOTE | 2021-03-04 10:41 | ANES.PREANE2 ---
Pre-Anesthetic Assessment Pre-Anesthetic Assessment: Height/Weight: Height 1.91 m Weight 105.687 kg Preop Diagnosis: Severe coronary artery disease Proposed Procedure: Operation Date: 03/09/21 07:00 Proposed Procedures p CABG(Not Applicable) - Jason Streeter MD Familial anesthetic complications: None Social: Social History: No alcohol and No tobacco Exam: Pre-Anes Outpt Exam: alert, oriented x 3, clear to auscultation bilaterally and regular rate & rhythm Airway: Cervical ROM: WNL MP: 4 Dentition: Other (missing teeth) CV/HEM: CV/HEM: CAD and HTN Comments: PVCs 10/17/20 LEXISCAN CONCLUSION: 1. Positive EKG response to treadmill exercise. 2. No exercise-induced chest pain or cardiac arrhythmia. 3. Fair exercise tolerance, attained a maximum of 7 METs. Maximum VO2 of 24.5 mL/kg/min. 4. Baseline hypertension with normal response to exercise. 5. Perfusion scan will be documented separately. IMPRESSIONS 1. Large sized perfusion abnormality of moderate to severe severity of entire inferior and basal to mid inferolateral augustin with mild reversibility in inferior and inferolateral augustin. 2. 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 3. The left ventricular ejection fraction is mildly reduced with a value of 46%. 4. There is mild hypokinesis of inferior wall. 5. No prior similar studies to compare. 09/10/20 HOLTER Conclusion: Sinus rhythm to sinus tachycardia with frequent ventricular ectopy. 26.5% of beats were ectopic ventricular.. There were 9 ventricular runs with the longest run of 17 beats. Ventricular bigeminal and trigeminal rhythm were also noted. 10/17/20 ECHO CONCLUSIONS Normal LV size with diminished ejection fraction of 45 to 50%. Wall motion of normalities as mentioned above. Type I diastolic dysfunction. The left atrium upper limit of normal size. Mild aortic valve regurgitation. Thickened aortic valve. Mildly thickened mitral valve. There is no pericardial effusion. There are no intracardiac masses. Anesthetic Plan: ASA status: 4 Anesthesia: General Risk of > 500 ml blood loss (7ml/kg in children): Yes, adequate IV access and fluids planned PFSH Anesthesia PFSH: Medical History (Updated 02/06/21 @ 09:29 by Jason Streeter MD) 3-vessel coronary artery disease Abnormal cardiovascular stress test Frequent PVCs LV dysfunction Family History Father Stroke Brother Stroke Mother Diabetes Denies family history of CAD (coronary artery disease) Hyperlipidemia Hypertension Social History Smoking and tobacco status: never smoked Alcohol intake: current Alcohol intake frequency: holidays/special occasions only Data Anesthesia CBC & Chem 7: 03/04/21 09:30 03/04/21 09:30 Other Labs: Laboratory Results - last 48 hr 03/04/21 03/04/21 03/04/21 09:30 09:30 09:30 WBC 7.0 RBC 5.63 H Hgb 17.1 H Hct 52.3 H MCV 92.9 MCH 30.4 MCHC 32.7 RDW 12.9 Plt Count 240 MPV 10.7 H Neut % (Auto) 56.2 Lymph % (Auto) 30.9 Arroyo % (Auto) 8.5 Eos % (Auto) 3.2 Baso % (Auto) 0.9 Neut # (Auto) 3.92 Lymph # (Auto) 2.2 Arroyo # (Auto) 0.6 Eos # (Auto) 0.2 Baso # (Auto) 0.1 Nucleated RBC % (auto) 0 Nucleated RBCs # 0.0 PT 13.50 INR 1.00 APTT 31.1 Sodium 139 Potassium 4.7 Chloride 102 Glucose 108 AST 30 ALT 31 Alkaline Phosphatase 122 Albumin 4.5 Cardiac Studies: Holter Monitor 09/10/20
[2021-03-04 10:49] LABS: Bilirubin Urine Neg (Negative); Blood Urine Neg (Negative); Glucose Urine UA Norm (Normal); Ketones Urine Negative (Negative); Leukocyte Esterase Urine Negative (Negative); Nitrate Urine Negative (Negative); Protein Urine Neg (Negative); Specific Gravity, Urine 1.015 (1.005-1.030); Urine Appearance Clear (CLEAR); Urine Color Yellow (Yellow); Urobilinogen Urine 1 mg/dL (Negative); pH Urine 6.5 (5-7)
[2021-03-04 10:52] LABS: Anion Gap 14.7 (5-19); Blood Urea Nitrogen 15 mg/dL (8-23); Calcium 9.7 mg/dL (8.5-10.5); Carbon Dioxide 27 mmol/L (22-29); Glomerular Filtration Rate 96.7 mL/min (90-130); Osmolality Calculated 289 mOsm/kg (285-295); Total Bilirubin 1.8 mg/dL (0.15-1.2)
[2021-03-04 11:17] LABS: Free T4 Free Thyroxine 1.05 ng/dL (0.82-1.77); Globulin 2.9 g/dL (1.3-4.6); Thyroid Stimulating Hormone 1.45 uIU/mL (0.27-4.20); Total Protein 7.4 g/dL (6.6-8.7)
--- NOTE | 2021-03-04 12:30 | XR_ITS ---
WS: [id number] Chest 2 views, 03/04/2021 Clinical Data: PREOP Comparison: None. Findings: No nodules, masses or effusions are seen. The heart is normal. The pulmonary vascularity is not increased. No pneumonia or pneumothorax is seen. The aortic arch and descending aorta show calci fication and tortuosity. XR/XR chest 2V* [id number] Impression: Atherosclerosis.
[2021-03-09] VITALS (45 sets, daily range): BP systolic 80–140; BP diastolic 45–79; PULSE 78–106; RESP 11–24; TEMP 36.3–38.4; O2SAT 92–100
[2021-03-09 05:40] LABS: Glucose Point of Care 102 mg/dL (70-110)
[2021-03-09] MEDS: sodium chloride 0.9% 1,000 ML 30 ML IV (05:41)
--- NOTE | 2021-03-09 06:06 | P.HP_ITS ---
Providers/Chief Complaint Admitting Physician: Dr. Streeter Chief Complaint: cabg History of Present Illness Reynaldo Bo is a 65 year old male I saw originally back on February [address] Taylor to consider surgery revascularization for severe coronary artery disease. He originally presented with a detached retina back in [facility] of last year requiring urgent treatment. During that evaluation numerous PVCs were seen on EKG. Subsequent review by Dr. Del Valle included stress testing which revealed reversible and nonreversible areas on the inferior lateral wall consistent with RCA/circumflex disease. Catheterization by Dr. Taylor revealed total occlusion of the circumflex artery past the first OMB. There is also total occlusion of the RCA in the proximal portion with late filling. He also has an 80% lesion in the proximal LAD. Ejection fraction is 40%. He has severe hypokinesia to akinesia to the inferior and lateral augustin. He is asymptomatic. He and his have recently moved here from [place]. Following my evaluation on February 06, we recommended coronary artery bypass grafting. He presented to the emergency department yesterday complaining of upper respiratory tract symptoms. This included rhinorrhea and a slight dry cough. His evaluation at that time was negative with clear chest x-ray, no candelario kocytosis, afebrile. He also had clear lung franco. Upon presentation this morning for planned surgery, he states he feels much better and has no symptoms. He and his are eager to proceed with plans for surgery. We have previously reviewed the conduct of surgery as well as provided our educa tional materials which we have reviewed with them. Review of Systems Const: Denies: fever(s), chills, change in appetite, change in weight, fatigue or night sweats Eyes: Denies: change in vision or blurry vision ENMT: Denies: odynophagia or hoarseness Card: Denies: chest pain, palpitations, irregular heart rhythm or edema Resp: Denies: dyspnea or productive cough GI: Denies: abdominal pain, nausea, vomiting, dysphagia, heartburn or change in bowel habits : Denies: difficulty urinating, dysuria, urinary frequency, urinary urgency or urinary hesitancy Musc: Reports: back pain; Denies: extremity pain or extremity swelling Skin/Breast: Denies: rash Neuro: Denies: headache(s), numbness in extremities, weakness in extremities or sensory changes Psych: Denies: anxiety, depression or change in appetite Endo: Denies: polyuria, polydipsia or cold intolerance John/Lymph: Denies: easy bruising, easy bleeding, petechiae or enlarged lymph nodes Medications/Allergies Home Medications Medication Instructions Recorded Confirmed Last Taken Type aspirin 81 mg tablet,delayed 81 mg PO DAILY #30 tab 12/15/20 03/09/21 03/02/21 Rx release nitroglycerin 0.4 mg sublingual 0.4 mg SUBLINGUAL Q5M PRN #30 tab 12/15/20 03/09/21 Unknown Rx tablet metoprolol succinate 12.5 mg PO DAILY@219903/04/21 03/09/21 03/08/21 History atorvastatin 20 mg PO DAILY@219903/08/21 03/09/21 03/08/21 History chlorhexidine gluconate See Rx Instructions .ROUTE .COMPLEX 03/08/21 03/09/21 03/09/21 History isosorbide mononitrate 10 mg PO BID@1100,0 03/08/21 03/09/21 03/09/21 History multivitamin 1 tab PO DAILY@219903/08/21 03/09/21 03/08/21 History mupirocin See Rx Instructions .ROUTE .COMPLEX 03/08/21 03/09/21 03/09/21 History ascorbic acid (vitamin C) [Vitamin 500 mg PO DAILY 03/09/21 03/09/21 03/08/21 History C] cholecalciferol (vitamin D3) 10 mcg PO DAILY 03/09/21 03/09/21 03/08/21 History [Vitamin D3] Allergies Allergy/AdvReac Type Severity Reaction Status Date / Time No Known Allergies Allergy Verified 02/06/21 08:44 PFSH Acute PFSH: Medical History 3-vessel coronary artery disease Abnormal cardiovascular stress test Frequent PVCs LV dysfunction Family History Father Stroke Brother Stroke Mother Diabetes Denies family history of CAD (coronary artery disease) Hyperlipidemia Hypertension Social History Smoking and tobacco status: never smoked Alcohol intake: current Alcohol intake frequency: holidays/special occasions only Vitals/I&O/Wt Last Vital Signs Temp 97.4 F L 03/09/21 05:11 Pulse 89 03/09/21 05:11 Resp 18 03/09/21 05:11 BP 140/79 03/09/21 05:11 Pulse Ox 99 03/09/21 05:11 Physical Exam Const: COMMON NORMALS: patient oriented x3 and alert ORIENTATION/CONSCIOUSNESS: Yes oriented to person, Yes oriented to place and Yes oriented to time HENMT: COMMON NORMALS: normocephalic HEAD & SCALP: normocephalic Neck/C-Spine: COMMON NORMALS: full ROM, supple, no JVD and No carotid bruits GENERAL: Yes trachea midline CERVICAL SPINE: Yes cervical ROM normal Chest: COMMONS NORMALS: normal inspection of the chest and normal palpation of entire chest wall Resp: COMMON NORMALS: normal respiratory effort, No use of accessory muscles, clear to auscultation bilaterally and percussion normal EFFORT & INSPECTION: Yes able to speak in complete sentences and Yes symmetric chest movement AUSCULTATION: clear to auscultation bilaterally PERCUSSION: percussion normal Cardio: COMMON NORMALS: no JVD, regular rate, regular rhythm, S1 normal heart sound present, S2 normal heart sound present, No gallops present (Cardio), No murmurs present (Cardio), No rub (Cardio) and Peripheral pulses 2+ throughout JUGULAR VENOUS DISTENTION: no JVD RATE: regular rate RHYTHM: regular rhythm HEART SOUNDS: S1 normal heart sound present and S2 normal heart sound present PERIPHERAL PULSES: Peripheral pulses 2+ throughout Neuro: COMMON NORMALS: patient oriented x3, no focal motor deficits and no sensory deficits noted SENSORIUM/ORIENTATION: Yes alert, Yes oriented to person, Yes oriented to place and Yes oriented to time GAIT: Yes Normal gait present Data : 03/04/21 09:30 03/04/21 09:30 A&P Assessment and plan (1) 3-vessel coronary artery disease: Plan for CABG today. Details and risks of CABG were carefully and frankly reviewed. Risks discussed include the possibility of , stroke, heart attack, major bleeding possibly requiring the need to reopen chest, infection, pneumonia, organ failure, failure to benefit, early closure of the bypass grafts, inability to complete the pro cedure, prolonged hospitalization, blood clots to lungs or other organs, need for further interventions, continued pain after surgery, need for future surgery, and possible long-term bleeding risk secondary to medication requirements. All questions were answered. Mr. Bo and his stated un derstanding. Discussed that with the total occlusion of the circumflex vessel, it may be difficult to find an adequate target areas for bypass, and as well the distal RCA is poorly opacified making target selection challenging as well. 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
--- NOTE | 2021-03-09 06:22 | P.ANESUD_ITS ---
Pre-Anesthetic Update Pre-Anesthetic Assessment: Date of Surgery/Procedure: 03/09/21 Preop Lissa gnosis: Severe coronary artery disease Proposed Procedure: Operation Date: 03/09/21 07:00 Proposed Procedures p CABG(Not Applicable) - Jason Streeter MD Any changes to Pre-Anesthetic Assessment?: No Last Intake: Intake Last Liquid Date 03/08/21 Last Solid Date 03/08/21 Labs Last 48hrs: Laboratory Results - last 48 hr 03/09/21 05:22 POC Glucose 102 Vitals: Temperature 97.4 F L 03/09/21 05:11 Temperature Source Temporal Artery S can 03/09/21 05:11 Pulse Rate 89 03/09/21 05:11 Pulse Rhythm 03/09/21 05:30 Pulse Strength 3+ Normal 03/09/21 05:30 Respiratory Rate 18 03/09/21 05:11 Blood Pressure 140/79 03/09/21 05:11 Blood Pressure Susan n 99 03/09/21 05:11 Pulse Oximetry 99 03/09/21 05:11 Oxygen Delivery Me thod 03/09/21 05:30 Exam: Pre-Anes Outpt Exam: alert, oriented x 3, clear to auscultation bilaterally and regular rate & rhythm Cardiac Studies: Holter Monitor 09/10/20
[2021-03-09] MEDS: vancomycin 1,000 MG SDV 2000 MG IRRIGATION (08:00)
--- NOTE | 2021-03-09 09:28 | XRR_ITS ---
PROCEDURE INFORMATION: Exam: XR Chest Exam date and time: 03/09/2021 2:48 PM Age: 65 years old Clinical indication: Device placement; Other: Post open heart. ; Prior surgery; Surgery date: Post-operative (0-2 days); Surgery type: Post op cabg; Additional info: Post open heart. In or 1. Will call when ready TECHNIQUE: Imaging protocol: XR of the chest. Views: 1 view. COMPARISON: CR (CHEST, ) 03/08/2021 12:31 PM FINDINGS: Tubes, catheters and devices: Line [place]-Brenda catheter, thoracostomy tubes, mediastinal drain, and endotracheal tube. The endotracheal tube terminates 5.4 cm above the dianelys. Lungs: Hypoinflation with mild airspace disease. Pleural spaces: Nonvisualization of the left costophrenic angle. No significant right pleural effusion or pneumothorax. Heart/Mediastinum: No cardiomegaly. Bones/joints: Median sternotomy. Degenerative change. XR/XR chest 1V portable [id number] IMPRESSION: 1. Line [place]-Brenda catheter, thoracostomy tubes, mediastinal drain, and endotracheal tube. The endotracheal tube terminates 5.4 cm above the dianelys. 2. Hypoinflation with mild airspace disease.
--- NOTE | 2021-03-09 10:20 | SUR.OPER ---
LACTATED RINGERS: HEPARIN 1.75ML SODIUM BARCARB 0.7ML VERAPAMIL 7ML NITROGLYCERIN 2ML TO STERILE FIELD.
--- NOTE | 2021-03-09 10:42 | ANES.PROC ---
Anesthesia Procedures Procedure/Date: 03/09/21 Arterial Line: Time Out Performed: Yes Consent: requested by attending/covering physician, from patient and patient agrees to proceed Size (Gauge): 20 Technique Used: guide wire technique Post-Procedure: dry sterile dressing placed Patient Tolerated Procedure: well Complications: none Site: left and radial Additional Comments: Dr. Godfrey performed. Central Venous Insert: Central Venous Line: Double stick; Introducer and triple lumen. RIJ, seldinger technique. Gowns, glove, mask. Time Out Performed: Yes Consent: requested by attending/covering physician, from patient, risks and benefits reviewed and patient agrees to proceed Central Line: New Anesthesia monitors: pulse oximetry, EKG, BP cuff and oxygen Vein cannulated: right internal jugular Post procedure: Obtain Chest X-Ray
[2021-03-09] MEDS: cefUROXime 1,500 MG in sodium chloride 0.9% (plus) 50 ML 100 MG IV (12:50)
[2021-03-09 14:13] LABS: Blood Urea Nitrogen 11 mg/dL (8-23); Calcium 8.1 mg/dL (8.5-10.5); Carbon Dioxide 23 mmol/L (22-29); Chloride 113 mmol/L (98-107); Glomerular Filtration Rate 134.8 mL/min (90-130); Glucose 135 mg/dL (65-115); Osmolality Calculated 295 mOsm/kg (285-295); Sodium 142 mmol/L (136-145)
[2021-03-09 14:15] LABS: Anion Gap 10.8 (5-19); Potassium 4.8 mmol/L (3.5-5.1)
--- NOTE | 2021-03-09 15:30 | PC.NURSE ---
Pt arrives to ICU intubate and on propofol. Wound vac to mid chest incision flat and patent. Chest tubes, 2 mediastinal and 2 pleural, patent and draining Pacemaker hooled up but not on. PETER ISAIAH at 50cm at hub. Cordis and central ine patent with fluids infusion. Neosynephrine, propofol and NS infusing. Urine cath patent and draining yellow fluid. Right leg wrapped with RIGO bandage , harvest sites not visualized at this time. OG not present.
--- NOTE | 2021-03-09 15:36 | ECG_ITS ---
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 Measurements Intervals [place] Rate: 80 P: 69 UT: 162 QRS: 27 QRSD: 105 T: -52 QT: 372 QTc: 430 Interpretive Statements SINUS RHYTHM MODERATE T-WAVE ABNORMALITY, CONSIDER INFERIOR ISCHEMIA [-0.1+ mV T WAVE IN II/aVF] Compared to ECG 03/08/2021 15:40:11 T-wave abnormality now present Possible ischemia now present Electronically Signed On 03-09-2021 20:13:50 CDT by Yoandy Marin M.D. [id number]
[2021-03-09 15:49] LABS: Basophils % 0.2 %; Eosinophils % 0.1 %; Hemoglobin 13.7 g/dL (11.7-16.6); Lymphocytes % 8.4 %; Mean Corpuscular HGB Conc 32.6 g/dL (30.0-36.0); Mean Platelet Volume 10.8 fL (7.4-10.4); Monocytes % 8.3 %; Neutrophils # 10.12 10^3/uL (1.8-7.7); Neutrophils % 82.6 %; Nucleated Red Blood Cells % 0 %; Platelet Count 132 10^3/cmm (130-400); Red Blood Count 4.42 10^6/uL (4.1-5.3); Red Cell Distribution Width 13.2 % (12.1-15.1); White Blood Count 12.3 10^3/uL (4.0-10.0)
--- NOTE | 2021-03-09 16:18 | P.OP_ITS ---
Operative Report Date of procedure: March 09, 2021 Pre-op Diagnosis: Severe coronary artery disease Post-op diagnosis: same Post-op Diagnosis: Right lower lobe atelectasis Procedure Done: 1. Coronary artery bypass grafting x3 (1 artery and 2 veins) utilizing in situ left internal mammary artery to the left anterior descending artery, reverse sinus vein graft aorta to the obtuse marginal branch of the circumflex artery, and reverse on his vein graft from the aorta to the PDA. 2. Endoscopic saphenous vein harvesting of the right greater saphenous vein from the thigh and leg. 3. Therapeutic bronchoscopy Pathology: none sent Surgeon: Jason Streeter Anesthesia: General Complications: Right lower lobe postop atelectasis. Condition: stable Disposition: ICU Brief History: Mr. Bo is a 65-year-old gentleman with severe three-vessel coronary artery disease including 80% proximal LAD stenosis, total occlusion of the RCA, total occlusion of the circumflex artery after the first OMB. He was referred to our service to consider surgery vascularization due to his severe three-vessel disease. He underwent outpatient careful preoperative evaluation. Details the risk of the procedure were carefully and frankly discussed. Proper consents have been reviewed and signed. Procedure: 1. Coronary artery bypass grafting x3. Endoscopic saphenous vein harvesting of the right greater saphenous vein from the right thigh and leg. Details and risks of the surgery were carefully and frankly explained to the patient and the family. Particular risks of this surgery carefully reviewed with them included the possibility of , stroke, heart attack, major bleeding, infection, pneumonia, pain, organ failure, failure to benefit, early closure of the bypass grafts, prolonged hospital stay and subsequent need for further procedures. Increased risks for complications secondary to unclear targets related to total occlusion of the circumflex artery after the first OMB 1, and the RCA were carefully reviewed. Mr. Bo and his understand these increased risks. All questions were answered and appropriate consents were reviewed and signed. Preoperative education included both written and video materials. Mr. Bo wished to proceed with plans for attempted surgical revascularization for severe coronary artery bypass. PROCEDURE: Preoperative evaluation was obtained from our Anesthesia colleagues and adequate IVs were confirmed. The patient was then taken to the Operating Room Suite where general anesthesia was induced. Appropriate invasive monitoring lines were placed, including large bore peripheral IVs, central line, Cottonwood-Brenda catheter, Coulter catheter and associated monitoring leads. After careful po sitioning on the Operating Room table, the patient was subsequently sterilely prepped and draped. Right greater. Saphenous vein was harvested by endoscopic technique from the right thigh and leg.. Branches were secured with ligature and clips and the vein was extracted from the tunnel without tension. It was then flushed with a Heparin and albumin solution and prepared for grafting. Vein harvest sites were irrigated, platelet poor plasma infused into the tunnel and port sites closed with 3-0 and 4-0 Vicryl Plus suture. Simultaneously with vein harvesting, a median sternotomy was created utilizing a #10 scalpel blade with hemostasis controlled with cautery. After reaching the sternal table, the sternum was divided with a reciprocating saw. Bleeding was controlled with cautery and judicious use of bone wax. Following this, the left chest wall was elevated with a Rultract retractor. The left internal mammary artery was dissected free with branches being secured with clips and cautery. The distal end was left intact. After harvesting of the mammary artery, a left pleural chest tube was then placed. The left chest wall was then lowered and moistened antibiotic-soaked laparotomy pads were placed in the wound, followed by an Ankeney retractor. The sternum was then and the pericardium opened and secured with stay sutures. After inspection, 2-0 pledgeted Ethibond sutures were placed at cannulation sites, at which time the patient was fully heparinized. Following this, the left internal mammary artery was taken down from its distal attachment, flushed with Papaverine solution, prepared for grafting and brisk flow confirmed. A soft bulldog was applied distally. Next, the heart was cannulated with a 22-Indonesian aortic cannula, two-stage venous cannula and aortic root vent. The patient was subsequently placed on cardiopulmonary bypass and cooled systemically to 34 degrees. Aortic cross-clamp was then carefully placed and 4 degree Celsius cold blood cardioplegia was ad ministered through the aortic root in antegrade fashion. Prompt diastolic arrest was obtained. Left ventricular decompression was confirmed. The heart was cooled systemically with iced saline with an insulation pad in place to protect the phrenic nerve. Throughout the cross-clamp period, at 20-30 minute intervals, antegrade blood cardioplegia was administered to maintain asystole. We then inspected the cardiac surface and coronary anatomy. There was a good quality 2 mm OMB branch #2 identified on the lateral wall. This vessel continued down running parallel to the lateral border of a transmural infarction of the inferior wall. This vessel was opened up and end-to-side anastomosis was completed with the vein graft utilizing 7-0 Prolene suture. This vein graft was then anastomosed to a 4 mm aortotomy with 5-0 Prolene suture. This graft carried good flow. Next, we inspected the distribution of the RCA. We identified a small PDA and 1.25 to 1.5 mm which also extended down transmurally infarcted region on the inferior wall. This vessel was opened up and a second portion of vein was anastomosed distally in a end-to-side fashion with 7-0 Prolene suture and proximal medial 4 mm aortotomy with 5-0 Prolene suture. This graft carried fair flow. With the rewarming phase of bypass continuing, the left internal mammary artery was brought through a left anterior pericardial window into the field. The LAD was opened up in its mid one-third and was approximately 2 mm in size. The EASTMAN was then anastomosed to the LAD with a running 7-0 Prolene suture. It should be noted that all distal coronary anastomoses were performed over the appropriate size coronary shunt which was removed prior to securing the distal suture line. Following this, aortic cross-clamp was released and de-airing maneuvers were performed through the aortic root vent, as well as being confirmed by transesophageal echocardiography. Dobutamine at 3 mcg per kilogram per minute was administered with good chronotropic and inotropic affect. The heart returned to spontaneous sinus rhythm and did not require cardioversion or pacing. After adequate recovery from the cross-clamp period and confirmation of cardiac stability, Mr. Bo was weaned from bypass without difficulty. Venous cannula was removed. Heparin was reversed with Protamine and confirmed by measurement of activated clotting time. The heart was then decannulated and cannulation sites were oversewn as required. Pacing wires were placed and brought through the skin and secured. Radiopaque markers were placed on the vein grafts at the level of aorta. Two mediastinal drains were placed and connected to Pleur-evac suction. The wound was carefully irrigated and hemostasis was confirmed. Ankeney retractor was removed and sponge and needle count was correct. The sternum was then reapproximated very carefully with interrupted #7 stainless steel wire with Surgicel strips used beneath the sternal table. Fascia was closed with #1 Vicryl suture with the next layers being closed with 2-0 and 3-0 suture. The skin was reapproximated carefully in a subcuticular manner. Sterile dressings were applied, followed by a vacuum-assisted dressing. Preoperative chest x-ray obtained after the dressings were placed revealed what appeared represent right lower lobe atelectasis. Therefore, I recommended therapeutic bronchoscopy at that time. #2. Therapeutic bronchoscopy While being maintained under general anesthesia, bronchoscope was inserted through the endotracheal tube in a methodical fashion major airways in each lobe were Inspected. There were no endobronchial lesions otherwise some rather thick secretions down to the right lower lobe though no actual obstruction was identified. This may have cleared from the time of the x-ray into the bronchoscope exam was performed. Mucosal appear to be unremarkable with normal branching anatomy and no evidence for submucosal infiltration or extrinsic compression. He tolerated bronchoscopy well. He was then carefully removed from the operating room table and transferred to the Intensive Care Unit. His was then counseled as to the details of the procedure.
--- NOTE | 2021-03-09 16:19 | ANE.PACU2 ---
Inpatient post-anesthesia follow up: Airway intact: Yes Vital signs: Temperature 97.4 F Pulse Rate 83 Respiratory Rate 14 Blood Pressure 119/75 Pulse Oximetry 100 Oxygen Delivery Me thod Mechanical Ventila tion Oxygen Flow Rate Fraction of Inspir ed Oxygen 100 Hydration adequate: Yes Nausea and vomiting: No Pain level: 2 Mental status: Altered Additional Comments: Sedated, intubated to ICU.
[2021-03-09] MEDS: propofol 1,000 MG/100 ML INJ 31.7 MG IV (16:23)
[2021-03-09] MEDS: sodium chloride 0.9% 1,000 ML 75 ML IV ×2 (16:25→18:29)
--- NOTE | 2021-03-09 16:27 | PC.NURSE ---
Pt at bedside. Visiting with Primary RN Emily and anesthesia. All vitals and output are stable at this time.
[2021-03-09 16:54] LABS: INR 1.24 (0.8-1.2)
[2021-03-09 16:55] LABS: Partial Thromboplastin Time 30.2 SECONDS (23.9-36.7)
--- NOTE | 2021-03-09 17:00 | PC.NURSE ---
Dr Streeter notified OG not in place, one would be needed when he ordered Aspirin 81mg . Discussed checking placement xran and/or auscultation. Dr coleman'd checking placement with just auscultation.
[2021-03-09 17:09] LABS: ABG PCO2 41.8 mmHg (35-45); ABG PH Result 7.38 (7.35-7.45); Arterial Blood Gas Hematocrit 42.9 % (42-52); Base Excess ABG -0.5 mmol/L (-2.0-2.0); Blood Gas Operator Identificat GD; Blood Gas Sample Site Not specified; Blood Gas Sample Type Arterial; Carboxyhemoglobin 0.5 %THgb (0.4-20.1); HCO3 ABG 24.7 mmol/L (22-26); HGB O2 Sat 98.6 % (95-100); Ionized Calcium Level - ABG 1.2 mmol/L (1.1-1.4); Oxygen Device VENT; Oxygen Saturation ABG > 100.0; Potassium Level - ABG 4.9 mmol/L (3.5-5.0)
[2021-03-09 17:10] LABS: Blood Gas Tidal Volume 0.65
[2021-03-09] MEDS: albumin 12.5 GM/250 ML VIAL IV ×2 (17:27→18:09)
--- NOTE | 2021-03-09 17:30 | PC.NURSE ---
BMP hemolized . Redrawn. Hemotology one at 1536, reviewed at that time , no blood products indicated.
--- NOTE | 2021-03-09 17:33 | PC.NURSE ---
Pt SBP in the 80's, albumin being hung.
[2021-03-09] MEDS: aspirin 81 mg Chew Tablet PO (17:41)
[2021-03-09] MEDS: mupirocin oint 22 gm 1 APPLIC NASAL (17:41)
[2021-03-09] MEDS: chlorhexidine gluconate 0.12% Btl 473 mL 15 ML MUCOUS MEM (17:42)
[2021-03-09] MEDS: phenylephrine inj 25 MG in sodium chloride 0.9% 250 ML 24.2 MG IV (18:34)
[2021-03-09 18:42] LABS: Anion Gap 11.1 (5-19); Blood Urea Nitrogen 11 mg/dL (8-23); Calcium 7.6 mg/dL (8.5-10.5); Carbon Dioxide 24 mmol/L (22-29); Chloride 111 mmol/L (98-107); Glomerular Filtration Rate 112.8 mL/min (90-130); Glucose 134 mg/dL (65-115); Magnesium 2.1 mg/dL (1.7-2.3); Osmolality Calculated 293 mOsm/kg (285-295); Potassium 5.1 mmol/L (3.5-5.1); Sodium 141 mmol/L (136-145)
--- NOTE | 2021-03-09 18:45 | PC.NURSE ---
First BMP post op values back, reviewed no electrolyte replacements indicated.
[2021-03-09 18:52] LABS: Basophils % 0.2 %; Eosinophils % 0.2 %; Hemoglobin 12.4 g/dL (11.7-16.6); Lymphocytes # 1.1 10^3/uL (0.8-4.8); Mean Corpuscular HGB Conc 32.6 g/dL (30.0-36.0); Mean Platelet Volume 10.4 fL (7.4-10.4); Monocytes % 9.8 %; Neutrophils # 8.44 10^3/uL (1.8-7.7); Neutrophils % 79.3 %; Nucleated Red Blood Cells % 0 %; Platelet Count 129 10^3/cmm (130-400); Red Cell Distribution Width 13.4 % (12.1-15.1); White Blood Count 10.6 10^3/uL (4.0-10.0)
--- NOTE | 2021-03-09 19:03 | PC.NURSE ---
Bedside report given to KAYLYNN Damico.
[2021-03-09 19:15] LABS: Anion Gap 10.9 (5-19); Blood Urea Nitrogen 11 mg/dL (8-23); Calcium 7.5 mg/dL (8.5-10.5); Carbon Dioxide 24 mmol/L (22-29); Chloride 111 mmol/L (98-107); Glomerular Filtration Rate 112.8 mL/min (90-130); Glucose 132 mg/dL (65-115); Osmolality Calculated 293 mOsm/kg (285-295); Potassium 4.9 mmol/L (3.5-5.1); Sodium 141 mmol/L (136-145)
[2021-03-09] MEDS: propofol 1,000 MG/100 ML INJ 25.4 MG IV (19:25)
[2021-03-09 20:24] LABS: Glucose Point of Care 88 mg/dL (70-110)
[2021-03-09 20:24] LABS: Glucose Point of Care 116 mg/dL (70-110)
[2021-03-09 20:24] LABS: Glucose Point of Care 116 mg/dL (70-110)
[2021-03-09 20:24] LABS: Glucose Point of Care 120 mg/dL (70-110)
[2021-03-09 20:24] LABS: Glucose Point of Care 123 mg/dL (70-110)
[2021-03-09 20:24] LABS: Glucose Point of Care 122 mg/dL (70-110)
[2021-03-09] MEDS: oxyCODONE-APAP 5-325 mg Tablet PO (21:18)
[2021-03-09 22:46] LABS: Basophils % 0.3 %; Eosinophils % 0.1 %; Hematocrit 36.6 % (42.0-52.0); Lymphocytes # 1.2 10^3/uL (0.8-4.8); Lymphocytes % 15.9 %; Mean Corpuscular HGB Conc 32.8 g/dL (30.0-36.0); Mean Corpuscular Hemoglobin 30.8 pg (28.0-34.0); Mean Corpuscular Volume 93.8 fL (80-94); Mean Platelet Volume 10.5 fL (7.4-10.4); Monocytes # 0.8 10^3/uL (0.2-0.9); Monocytes % 10.5 %; Neutrophils # 5.66 10^3/uL (1.8-7.7); Neutrophils % 72.9 %; Nucleated Red Blood Cells % 0 %; Platelet Count 131 10^3/cmm (130-400); Red Cell Distribution Width 13.6 % (12.1-15.1); White Blood Count 7.8 10^3/uL (4.0-10.0)
[2021-03-09 22:50] LABS: Arterial Blood Gas Hematocrit 37.8 % (42-52); Blood Gas Sample Type Arterial; Carboxyhemoglobin 0.7 %THgb (0.4-20.1); HGB O2 Sat 93.9 % (95-100); Methemoglobin 0.5 % (0.4-1.5); Total Hemoglobin 12.3 g/dL (14-18)
[2021-03-09 22:51] LABS: Alveolar-Arterial Oxygen Gradi 12.3 mmHg (5-10); Blood Gas Operator Identificat JB; Oxygen Device VENT
[2021-03-09 22:52] LABS: Anion Gap 12.6 (5-19); Blood Urea Nitrogen 12 mg/dL (8-23); Calcium 7.4 mg/dL (8.5-10.5); Carbon Dioxide 24 mmol/L (22-29); Chloride 108 mmol/L (98-107); Glomerular Filtration Rate 112.8 mL/min (90-130); Glucose 139 mg/dL (65-115); Osmolality Calculated 292 mOsm/kg (285-295); Potassium 4.6 mmol/L (3.5-5.1); Sodium 140 mmol/L (136-145)
[2021-03-09 22:53] LABS: Magnesium 1.9 mg/dL (1.7-2.3)
--- NOTE | 2021-03-09 22:54 | PC.NURSE ---
Pt weaned off sedation. Follows all commands. Hemodynamically stable. Pt only has NS infusing at 75ml/hr. RT extubated at 2254 to 4L NC. Pt alert and oriented, breathing even and non-labored.
--- NOTE | 2021-03-09 23:01 | PC.RESP ---
extubated patient to 4lm nc with zero complications at 2254
[2021-03-09] MEDS: fentaNYL 50 mcg/mL INJ 2mL IVP (23:40)
[2021-03-10] VITALS (74 sets, daily range): BP systolic 81–125; BP diastolic 50–84; PULSE 90–115; RESP 0–36; TEMP 36.7–38; O2SAT 86–100
[2021-03-10] MEDS: insulin regular-human 250 UNIT in sodium chloride 0.9% 250 ML IV (01:22)
[2021-03-10] MEDS: fentaNYL 50 mcg/mL INJ 2mL IVP ×4 (01:55→19:46)
[2021-03-10 04:04] LABS: Basophils % 0.3 %; Hematocrit 38.2 % (42.0-52.0); Hemoglobin 12.4 g/dL (11.7-16.6); Lymphocytes % 11.2 %; Mean Corpuscular HGB Conc 32.5 g/dL (30.0-36.0); Mean Corpuscular Hemoglobin 30.8 pg (28.0-34.0); Mean Corpuscular Volume 94.8 fL (80-94); Mean Platelet Volume 10.7 fL (7.4-10.4); Monocytes # 0.9 10^3/uL (0.2-0.9); Monocytes % 10.3 %; Neutrophils % 77.9 %; Nucleated Red Blood Cells % 0 %; Platelet Count 129 10^3/cmm (130-400); Red Blood Count 4.03 10^6/uL (4.1-5.3); Red Cell Distribution Width 13.5 % (12.1-15.1); White Blood Count 8.7 10^3/uL (4.0-10.0)
[2021-03-10 04:11] LABS: Partial Thromboplastin Time 35.7 SECONDS (23.9-36.7)
[2021-03-10 04:20] LABS: Anion Gap 10.1 (5-19); Blood Urea Nitrogen 13 mg/dL (8-23); Calcium 7.4 mg/dL (8.5-10.5); Carbon Dioxide 24 mmol/L (22-29); Chloride 108 mmol/L (98-107); Glomerular Filtration Rate 112.8 mL/min (90-130); Glucose 137 mg/dL (65-115); Glucose Fasting 137 mg/dL (74-106); Osmolality Calculated 288 mOsm/kg (285-295); Potassium 4.1 mmol/L (3.5-5.1); Sodium 138 mmol/L (136-145)
[2021-03-10 04:37] LABS: ABG PCO2 41.7 mmHg (35-45); Alveolar-Arterial Oxygen Gradi 2.9 mmHg (5-10); Base Excess ABG 0.5 mmol/L (-2.0-2.0); Blood Gas Sample Type Arterial; Carboxyhemoglobin 0.7 %THgb (0.4-20.1); HCO3 ABG 25.5 mmol/L (22-26); HGB O2 Sat 94.9 % (95-100); Ionized Calcium Level - ABG 1.1 mmol/L (1.1-1.4); Methemoglobin 0.4 % (0.4-1.5); PO2 ABG 76.2 mmHg (80.0-100.0); Potassium Level - ABG 4.1 mmol/L (3.5-5.0)
[2021-03-10 04:38] LABS: Blood Gas Operator Identificat JB; Oxygen Device NC
[2021-03-10] MEDS: oxyCODONE-APAP 5-325 mg Tablet PO ×3 (04:38→17:38)
--- NOTE | 2021-03-10 06:00 | XRR_ITS ---
PROCEDURE INFORMATION: Exam: XR Chest Exam date and time: 03/10/2021 5:40 AM Age: 65 years old Clinical indication: Device placement; Other: Cabg; Prior surgery; Surgery date: Post-operative (0-2 days); Additional info: Post op cabg TECHNIQUE: Imaging protocol: XR of the chest. Views: 1 view. COMPARISON: CR XR chest 1V portable [id number] 03/09/2021 2:39 PM FINDINGS: Tubes, catheters and devices: Central venous and Morris-Brenda catheters. Lungs: Hypoinflation and mild basilar airspace disease. Pleural spaces: Bilateral thoracostomy tubes, without significant pneumothorax. Heart/Mediastinum: Bypass surgery. No cardiomegaly. Bones/joints: Mild degenerative change. XR/XR chest 1V portable [id number] IMPRESSION: Hypoinflation and mild basilar airspace disease.
--- NOTE | 2021-03-10 06:00 | ECG_ITS ---
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 Measurements Intervals [place] Rate: 100 P: 55 CT: 168 QRS: -14 QRSD: 111 T: 0 QT: 351 QTc: 453 Interpretive Statements SINUS TACHYCARDIA MODERATE INTRAVENTRICULAR CONDUCTION DELAY [110+ ms QRS DURATION] NONSPECIFIC ST & T-WAVE ABNORMALITY ABNORMAL RHYTHM ECG WARNING: DATA QUALITY MAY AFFECT INTERPRETATION Compared to ECG 03/09/2021 17:28:02 Intraventricular conduction delay now present Sinus rhythm no longer present Possible ischemia no longer present T-wave abnormality still present Electronically Signed On 03-11-2021 7:42:32 CDT by Philomena Garcia M.D. [id number]
[2021-03-10 06:29] LABS: Glucose Point of Care 123 mg/dL (70-110)
[2021-03-10 06:29] LABS: Glucose Point of Care 132 mg/dL (70-110)
[2021-03-10 06:29] LABS: Glucose Point of Care 117 mg/dL (70-110)
[2021-03-10 06:29] LABS: Glucose Point of Care 139 mg/dL (70-110)
[2021-03-10 06:29] LABS: Glucose Point of Care 109 mg/dL (70-110)
[2021-03-10 06:29] LABS: Glucose Point of Care 143 mg/dL (70-110)
[2021-03-10 06:29] LABS: Glucose Point of Care 107 mg/dL (70-110)
[2021-03-10 06:29] LABS: Glucose Point of Care 133 mg/dL (70-110)
[2021-03-10 06:29] LABS: Glucose Point of Care 99 mg/dL (70-110)
[2021-03-10 06:29] LABS: Glucose Point of Care 129 mg/dL (70-110)
[2021-03-10 06:54] LABS: ABG PCO2 49.9 mmHg (35-45); ABG PH Result 7.32 (7.35-7.45); Arterial Blood Gas Hematocrit 33.9 % (42-52); Blood Gas Sample Type Arterial; Carboxyhemoglobin 0.7 %THgb (0.4-20.1); HCO3 ABG 25.6 mmol/L (22-26); HGB O2 Sat 95.9 % (95-100); Methemoglobin 0.7 % (0.4-1.5); Oxygen Saturation ABG 97.4; PO2 ABG 94.4 mmHg (80.0-100.0); Potassium Level - ABG 4.8 mmol/L (3.5-5.0); Total Hemoglobin 11.1 g/dL (14-18)
[2021-03-10 06:55] LABS: Blood Gas Sample Site Not specified
[2021-03-10 06:56] LABS: ABG PCO2 48.1 mmHg (35-45); ABG PH Result 7.32 (7.35-7.45); Arterial Blood Gas Hematocrit 34.5 % (42-52); Base Excess ABG -1.7 mmol/L (-2.0-2.0); Blood Gas Sample Site Not specified; Blood Gas Sample Type Arterial; Carboxyhemoglobin 0.6 %THgb (0.4-20.1); HCO3 ABG 24.7 mmol/L (22-26); HGB O2 Sat 99.3 % (95-100); Ionized Calcium Level - ABG 1.7 mmol/L (1.1-1.4); Methemoglobin 0.5 % (0.4-1.5); Oxygen Saturation ABG > 100.0; Total Hemoglobin 11.3 g/dL (14-18)
[2021-03-10 06:57] LABS: ABG PH Result 7.37 (7.35-7.45); Arterial Blood Gas Hematocrit 35.4 % (42-52); Base Excess ABG -0.3 mmol/L (-2.0-2.0); Blood Gas Sample Site Not specified; Blood Gas Sample Type Arterial; Carboxyhemoglobin 0.7 %THgb (0.4-20.1); HCO3 ABG 25.2 mmol/L (22-26); HGB O2 Sat 99.2 % (95-100); Ionized Calcium Level - ABG 1.1 mmol/L (1.1-1.4); Methemoglobin 0.3 % (0.4-1.5); Oxygen Saturation ABG > 100.0; Potassium Level - ABG 6.2 mmol/L (3.5-5.0); Total Hemoglobin 11.6 g/dL (14-18)
[2021-03-10 06:58] LABS: ABG PCO2 45.1 mmHg (35-45); ABG PCO2 49.3 mmHg (35-45); ABG PH Result 7.35 (7.35-7.45); ABG PH Result 7.37 (7.35-7.45); Alveolar-Arterial Oxygen Gradi 5.5 mmHg (5-10); Arterial Blood Gas Hematocrit 35.3 % (42-52); Arterial Blood Gas Hematocrit 35.6 % (42-52); Base Excess ABG 0.6 mmol/L (-2.0-2.0); Base Excess ABG 0.9 mmol/L (-2.0-2.0); Blood Gas Sample Site Not specified; Blood Gas Sample Type Arterial; Carboxyhemoglobin 0.5 %THgb (0.4-20.1); Carboxyhemoglobin 0.9 %THgb (0.4-20.1); HCO3 ABG 26.2 mmol/L (22-26); HCO3 ABG 27.1 mmol/L (22-26); HGB O2 Sat 81.1 % (95-100); HGB O2 Sat 99.4 % (95-100); Ionized Calcium Level - ABG 1.1 mmol/L (1.1-1.4); Methemoglobin 0.3 % (0.4-1.5); Methemoglobin 0.4 % (0.4-1.5); Oxygen Saturation ABG > 100.0; PO2 ABG 47.1 mmHg (80.0-100.0); Potassium Level - ABG 5.8 mmol/L (3.5-5.0); Total Hemoglobin 11.5 g/dL (14-18); Total Hemoglobin 11.6 g/dL (14-18)
[2021-03-10 06:59] LABS: Blood Gas Sample Site Not specified; Blood Gas Sample Type Venous
[2021-03-10 07:00] LABS: ABG PCO2 46.5 mmHg (35-45); ABG PCO2 46.7 mmHg (35-45); ABG PH Result 7.34 (7.35-7.45); ABG PH Result 7.36 (7.35-7.45); Arterial Blood Gas Hematocrit 35.8 % (42-52); Arterial Blood Gas Hematocrit 45.8 % (42-52); Base Excess ABG -1.5 mmol/L (-2.0-2.0); Base Excess ABG 0.8 mmol/L (-2.0-2.0); Blood Gas Sample Site Not specified; Blood Gas Sample Type Arterial; Carboxyhemoglobin 0.4 %THgb (0.4-20.1); Carboxyhemoglobin 0.6 %THgb (0.4-20.1); HCO3 ABG 24.8 mmol/L (22-26); HCO3 ABG 26.6 mmol/L (22-26); HGB O2 Sat 98.8 % (95-100); HGB O2 Sat 99.4 % (95-100); Ionized Calcium Level - ABG 1.2 mmol/L (1.1-1.4); Methemoglobin 0.2 % (0.4-1.5); Methemoglobin 0.3 % (0.4-1.5); Oxygen Saturation ABG 99.6; Oxygen Saturation ABG > 100.0; Potassium Level - ABG 5.8 mmol/L (3.5-5.0); Potassium Level - ABG 6.1 mmol/L (3.5-5.0); Total Hemoglobin 11.7 g/dL (14-18); Total Hemoglobin 14.9 g/dL (14-18)
--- NOTE | 2021-03-10 07:08 | PM.PN ---
Subjective Subjective: Interval history: POD #1 status post CABG x3. Awake and alert. Conversing with nursing staff. Sternotomy discomfort under good control. Chest tube output 624 cc since surgery. Good urine output. H&H is stable. Normal white count. Chest x-ray is very clear. Cardiac silhouette and mediastinum are normal. Cardiac index 3.1. No arrhythmias. Vitals/I&O/Wt Last Vital Signs Temp 99.7 F H 03/09/21 17:30 Pulse 99 03/10/21 06:45 Resp 13 03/10/21 06:45 BP 117/69 03/10/21 06:45 Pulse Ox 97 03/10/21 06:45 03/09/21 03/10/21 03/10/21 22:59 06:59 14:59 Intake Total 5697.220 / 5787.220 160.167 / 5947.387 Output Total 2066 / 2066 892 / 2959 Balance 3630.220 / 3720.220 -731.833 / 2988.387 Weight last 48 hrs Weight 242 lb 8 oz Physical Exam Chest: COMMONS NORMALS: normal inspection of the chest OTHER: Surgical dressings in place. Resp: COMMON NORMALS: normal respiratory effort, No retractions, No use of accessory muscles, clear to auscultation bilaterally and percussion normal AUSCULTATION: clear to auscultation bilaterally PERCUSSION: percussion normal Cardio: COMMON NORMALS: regular rate, regular rhythm, S1 normal heart sound present, No gallops present (Cardio), No murmurs present (Cardio) and No rub (Cardio) RATE: regular rate RHYTHM: regular rhythm HEART SOUNDS: S1 normal heart sound present Extremity: OTHER: Mild peripheral lower extremity edema beginning to resolve. Upper extremity edema resolved. Urinary Catheter Management^: Coulter: Cath Placed During This Visit: yes Reason for Continuing Indwelling Catheter: Accurate Measurement of Urinary Output in Critically Ill Patients Urinary Catheter Date of Insertion: 03/09/21 Urinary Catheter Time of Insertion: 07:00 Data : 03/10/21 03:29 03/10/21 03:29 A&P Assessment and plan (1) Status post aorto-coronary artery bypass graft: Postop day #1 status post CABG x3. Making good progress. Plan: Metoprolol 25 mg p.o. twice daily. Aspirin 81 mg daily. Lipitor 40 mg nightly. CBC, BMP, chest x-ray in a.m. DC [place]. DC Cordis. DC arterial line. Saline lock IV fluids. Status: Acute Attestations Medical Necessity Statement*: Postop day #1 status post CABG x3 Time Spent in Patient Care: less than 15 minutes Procedures Arterial Line Size (Gauge): 20 Coding Level of Care Code Acute Automatic Riveting Machine Operator for Daphneyg Fwd Diagnoses Status post aorto-coronary artery bypass graft Z95.1
[2021-03-10] MEDS: metoprolol tartrate 25 mg Tablet PO ×2 (08:37→20:00)
[2021-03-10] MEDS: pantoprazole 40 mg SDV IVP (08:37)
[2021-03-10] MEDS: aspirin 81 mg Chew Tablet PO (08:37)
[2021-03-10] MEDS: mupirocin oint 22 gm 1 APPLIC NASAL ×2 (09:20→17:31)
[2021-03-10 09:34] LABS: Glucose Point of Care 88 mg/dL (70-110)
[2021-03-10 09:34] LABS: Glucose Point of Care 121 mg/dL (70-110)
[2021-03-10 09:34] LABS: Glucose Point of Care 111 mg/dL (70-110)
[2021-03-10 10:22] LABS: Glucose Point of Care 114 mg/dL (70-110)
--- NOTE | 2021-03-10 10:56 | PC.CHAP ---
Pastoral Care Encounter/Spiritual Assessment Type of Contact [] Declined signs and displays salesperson visit [] Patient/Family/Request visit [] Outpatient visit [] Follow-up visit [] Physician referral [] Code/Alert [x] Routine visit [] Staff referral [] Actively dying [] Patient sleeping [] Family support [] [] Out of room [] Palliative care [] [x] Receiving care in room [] Pre-surgical visit [] Trauma [] Long length of stay [] ICU visit [] Other: Relational/Emotional Strength [x] Patient feels connected with others/family/visitors/staff [] Distress [] Loneliness/isolation [] Abandonment Spirituality of Patient [x] Person of Elsy [] Attends Scientology of their Elsy [x] Believes in Prayer [] Reads Bible or Spiritism materials [] There are Spiritual issues to be addressed Security Guard Interventions [x] Prayer [] Active listening [] Non-anxious presence [] Spiritual/emotional support [] Crisis/trauma care [] Spiritual counseling [] Bereavement support [] Provided bereavement packet [] Provided Bible/devotional materials [] Provided toy/stuffed animal, coloring book to patient or family member [] Provided Communion [] Anointing/[place] [] Salvation [] Completed spiritual assessment [] Other: Impact on Illness or Injury [] Angry [] Fearful [] Anxious [] Often cries [] Exhaustion [] Unable to work [] Unable to attend episcopalian [] Unable to walk/stand [] Unable to read [] Unable to drive [] Unable to eat/drink [] Unable to sleep [] Unable to be with family [] Patient intubated [] Other: Summary Seemed concerned, but trying to be patient. Time spent with patient 10 minutes.
[2021-03-10 11:05] LABS: Glucose Point of Care 102 mg/dL (70-110)
[2021-03-10 12:10] LABS: Glucose Point of Care 130 mg/dL (70-110)
--- NOTE | 2021-03-10 12:44 | P.CONIM_ITS ---
Providers/Reason For Consult Consulting Physican/Specialty*: Dr. Del Valle, cardiology Reason for Consult*: Multivessel CAD s/p CABG x 3 Attending Physician: Jason Streeter MD History of Present Illness History of Present Illness Reynaldo Bo is a 65 year old male with h/o retinal detachment in right eye in 07/2020. He was noted to have frequent PVC's on EKG and underwent holter monitor and stress test. 26% PVC burden and stress test with large sized perfusion abnormality of moderate to severe severity of entire inferior and bas al to mid inferolateral augustin with mild reversibility in inferior and inferolateral augustin.This is suggestive of old myocardial infarction in right coronary/circumflex artery territory with mild yumiko-infarct ischemia. He underwent LHC and was found to have multivessel CAD. He was admitted for CABG x3 ( Coronary artery bypass grafting x3 (1 artery and 2 veins) utilizing in situ left internal mammary artery to the left anterior descending artery, reverse sinus vein graft aorta to the obtuse marginal branch of the circumflex artery, and reverse on his vein graft from the aorta to the PDA) by Dr. Streeter yesterday. He was extubated last night and is off pressors/inotropes. He remains in NSR and was sitting in chair at the time of evaluation. Review of Systems General: Reports: 10 or more systems reviewed and unremarkable except in HPI and below Const: Denies: fever(s), chills, change in appetite, change in weight, fatigue or night sweats Eyes: Denies: change in vision or blurry vision ENMT: Denies: odynophagia or hoarseness Card: Denies: chest pain, palpitations, irregular heart rhythm or edema Resp: Denies: dyspnea or productive cough GI: Denies: abdominal pain, nausea, vomiting, dysphagia, heartburn or change in bowel habits : Denies: difficulty urinating, dysuria, urinary frequency, urinary urgency or urinary hesitancy Musc: Reports: back pain; Denies: extremity pain or extremity swelling Skin/Breast: Denies: rash Neuro: Denies: headache(s), numbness in extremities, weakness in extremities or sensory changes Psych: Denies: anxiety, depression or change in appetite Endo: Denies: polyuria, polydipsia or cold intolerance John/Lymph: Denies: easy bruising, easy bleeding, petechiae or enlarged lymph nodes Meds/Allergies Home Medications and Allergies Home Medications Medication Instructions Recorded Confirmed Last Taken Type aspirin 81 mg tablet,delayed 81 mg PO DAILY #30 tab 12/15/20 03/09/21 03/02/21 Rx release nitroglycerin 0.4 mg sublingual 0.4 mg SUBLINGUAL Q5M PRN #30 tab 12/15/20 03/09/21 Unknown Rx tablet metoprolol succinate 12.5 mg PO DAILY@219903/04/21 03/09/21 03/08/21 History atorvastatin 20 mg PO DAILY@219903/08/21 03/09/21 03/08/21 History chlorhexidine gluconate See Rx Instructions .ROUTE .COMPLEX 03/08/21 03/09/21 03/09/21 History isosorbide mononitrate 10 mg PO BID@1100,219903/08/21 03/09/21 03/09/21 History multivitamin 1 tab PO DAILY@219903/08/21 03/09/21 03/08/21 History mupirocin See Rx Instructions .ROUTE .COMPLEX 03/08/21 03/09/21 03/09/21 History ascorbic acid (vitamin C) [Vitamin 500 mg PO DAILY 03/09/21 03/09/21 03/08/21 History C] cholecalciferol (vitamin D3) 10 mcg PO DAILY 03/09/21 03/09/21 03/08/21 History [Vitamin D3] Allergies Allergy/AdvReac Type Severity Reaction Status Date / Time No Known Allergies Allergy Verified 02/06/21 08:44 Current Medications Current Medications Generic Name Dose Route Start Last Admin Trade Name Freq PRN Reason Stop Dose Admin Aspirin 81 mg 03/10/21 09:00 03/10/21 08:37 Aspirin 81 Mg Chew Tablet PO 81 mg DAILY UNIQUE Administration Chlorhexidine Gluconate 15 ml 03/09/21 18:00 03/10/21 08:34 Chlorhexidine Gluconate 0.12% Btl 473 Ml MUCOUS MEM Not Given BID UNIQUE Fentanyl 50 mcg 03/09/21 15:36 03/10/21 05:24 Fentanyl 50 Mcg/Ml Inj 2ml IVP 50 mcg Q1H PRN Administration SEVERE PAIN Albumin Human 12.5 gm in 250 mls @ 600 mls/hr 03/09/21 15:36 03/09/21 19:00 Albumin IV Infused PRN PRN Infusion For CVP < 4 or SBP< 90 Phenylephrine HCl 25 mg/ 252.5 mls @ 0 mls/hr 03/09/21 15:36 03/09/21 22:30 Sodium Chloride IV 0 mcg/min .Q0M PRN 0 mls/hr HYPOTENSION Titration Protocol Per Protocol Insulin Human Regular 250 unit 252.5 mls @ 0 mls/hr 03/09/21 15:36 03/10/21 12:10 / Sodium Chloride IV 2.08 unit/hr .Q0M UNIQUE 2.1 mls/hr Titration Protocol Per Protocol Propofol 1,000 mg in 100 mls @ 0 mls/hr 03/09/21 15:36 03/10/21 02:04 Diprivan IV Infused .Q0M UNIQUE Titration Protocol Per Protocol Metoprolol Tartrate 25 mg 03/10/21 09:00 03/10/21 08:37 Metoprolol Tartrate 25 Mg Tablet PO 25 mg BID@0900,2100 UNIQUE Administration Mupirocin 1 applic 03/09/21 18:00 03/10/21 09:20 Mupirocin Oint 22 Gm NASAL 1 applic BID UNIQUE Administration Oxycodone/Acetaminophen 1 - 2 tab 03/09/21 15:36 03/10/21 10:45 Oxycodone-Apap 5-325 Mg Tablet PO 1 tab Q6H PRN Administration MILD TO MODERATE PAIN Pantoprazole Sodium 40 mg 03/10/21 09:00 03/10/21 08:37 Pantoprazole 40 Mg Sdv IVP 03/11/21 08:59 40 mg DAILY UNIQUE Administration PFSH Acute PFSH: Medical History 3-vessel coronary artery disease Abnormal cardiovascular stress test Frequent PVCs LV dysfunction Family History Father Stroke Brother Stroke Mother Diabetes Denies family history of CAD (coronary artery disease) Hyperlipidemia Hypertension Social History Smoking and tobacco status: never smoked Alcohol intake: current Alcohol intake frequency: holidays/special occasions only Vitals/I&O/Wt Last Vital Signs Temp 99.7 F H 03/09/21 17:30 Pulse 101 H 03/10/21 09:44 Resp 21 H 03/10/21 10:45 BP 110/72 03/10/21 08:00 Pulse Ox 95 03/10/21 10:45 03/09/21 03/10/21 03/10/21 22:59 06:59 14:59 Intake Total 5697.220 / 5787.220 160.167 / 5947.387 1208.391 / 1208.391 Output Total 2066 / 2066 892 / 2959 Balance 3630.220 / 3720.220 -731.833 / 2988.387 1208.391 / 1208.391 Weight last 48 hrs Weight 242 lb 8 oz Physical Exam Narrative: EXAM NARRATIVE: Gen: sitting in chair, NAD HEENT: mild pallor, PERRL, EOMI Neck:No JVD appreciated Chest: midline sternotomy wound dressed, chest tubes in situ RS: CTA except at bilateral bases; No wheezing or rales CVS:S1, S2 +, No murmur, rub or gallop PA: soft, NTND, BS+ NA Ext:Right LE with RIGO wrap, no edema REFERRAL MANAGEMENT LIAISON: AAOx 3, No FND Urinary Catheter Management^: Coulter: Cath Placed During This Visit: yes Reason for Continuing Indwelling Catheter: Accurate Measurement of Urinary Output in Critically Ill Patients Urinary Catheter Date of Insertion: 03/09/21 Urinary Catheter Time of Insertion: 07:00 Data Micro: Micro: Microbiology 03/09/21 17:55 Gram Stain - Final Sputum - Endotrac heal Tube Aspirate Other Data: Attestation for Other Data: I personally reviewed and interpreted the following: Other data: Cardiac Cath: (11/2020) 2. 1-Left main is normal without significant stenosis2-LAD is moderate size and caliber vessel with mid 75% stenosis, diagonal 1 is small caliber and size vessel with 99% ostial occlusion with CHRISTIANNE II flow3-LCx is moderate size and caliber vessel possibly codominant with mid chronic total occlusion however distal vessel fills retrogradely with collaterals from left to left, obtuse marginal 1 is moderate size and caliber vessel without significant stenosis4-RCA is chronically 100% occluded in the mid with also 90% stenosis in proximal acute marginal branch 3. . 4. No significant gradient across the aortic valve was noted.. 5. There is severe coronary artery disease with three vessel disease. 6. The apex, mid posterior, mid septum, anterolateral, mid inferior augustin are hypokinetic. 7. Mild left ventricular systolic dysfunction. Ejection fraction of 45%. A&P Assessment and plan (1) Status post aorto-coronary artery bypass graft: POD#1 -doing well -currently on ASA, statin and low dose metoprolol. Status: Acute (2) 3-vessel coronary artery disease: Status: Acute (3) LV dysfunction: Mild LV dysfunction. Status: Acute (4) Frequent PVCs: Status: Acute (5) Hyperlipidemia: Status: Acute (6) HTN (hypertension): Status: Acute Consult Attestations Medical Necessity Statement: requires hospital stay post CABG Time Spent in Patient Care: 16 - 35 minutes (>than 50% of time spent in counselling and/or direct pt care on unit) . Procedures Arterial Line Size (Gauge): 20 Coding Level of Care Code Acute Adjustment Examiner for Chg Fwd Diagnoses Status post aorto-coronary artery bypass graft Z95.1 3-vessel coronary artery disease I25.10 LV dysfunction I51.9 Frequent PVCs I49.3 Hyperlipidemia E78.5 HTN (hypertension) I10
[2021-03-10 13:26] LABS: Glucose Point of Care 136 mg/dL (70-110)
[2021-03-10 14:32] LABS: Glucose Point of Care 140 mg/dL (70-110)
[2021-03-10 15:01] LABS: ABG PCO2 38.5 mmHg (35-45); ABG PH Result 7.42 (7.35-7.45); Base Excess ABG 0.6 mmol/L (-2.0-2.0)
[2021-03-10 15:02] LABS: Arterial Blood Gas Hematocrit 44.2 % (42-52); Blood Gas Sample Type ARTERIAL; Potassium Level - ABG 4.5 mmol/L (3.5-5.0)
[2021-03-10 15:03] LABS: Carboxyhemoglobin 0.4 %THgb (0.4-20.1); HGB O2 Sat 99.8 % (95-100); Ionized Calcium Level - ABG 1.2 mmol/L (1.1-1.4); Methemoglobin 0.3 % (0.4-1.5); Total Hemoglobin 14.4 g/dL (14-18)
[2021-03-10 15:41] LABS: Glucose Point of Care 116 mg/dL (70-110)
[2021-03-10 16:28] LABS: Glucose Point of Care 100 mg/dL (70-110)
[2021-03-10 17:39] LABS: Glucose Point of Care 112 mg/dL (70-110)
[2021-03-10 18:31] LABS: Glucose Point of Care 114 mg/dL (70-110)
[2021-03-10] MEDS: atorvastatin 40 mg Tablet PO (20:00)
[2021-03-10] MEDS: morphine 4 mg/mL SDV 1 mL 2 MG IVP (22:57)
--- NOTE | 2021-03-10 23:10 | PC.NURSE ---
ASSUMING CARE Patient resting in bed on 2L nasal cannula. Patient has right pleural, left pleural, right mediastinal, and left mediastinal chest tubes in place, 20 cm water seal to low suction, draining minimal serosanguineous drainage. Dr. Streeter to bedside to check on patient and gave order to take out right internal jugular central venous line. Insulin drip running per protocol. Plan to take out pleural and mediastinal tubes tomorrow if minimal drainage throughout the night. Orders state that on post op day 2, insulin gtt off at 0600, clarified with Dr. Streeter while at bedside what sliding scale he wanted, low dose sliding scale to start in AM.
[2021-03-10 23:36] LABS: Glucose Point of Care 121 mg/dL (70-110)
[2021-03-10 23:36] LABS: Glucose Point of Care 130 mg/dL (70-110)
[2021-03-10 23:36] LABS: Glucose Point of Care 128 mg/dL (70-110)
[2021-03-10 23:36] LABS: Glucose Point of Care 125 mg/dL (70-110)
[2021-03-10 23:36] LABS: Glucose Point of Care 120 mg/dL (70-110)
[2021-03-11] VITALS (32 sets, daily range): BP systolic 91–128; BP diastolic 62–86; PULSE 92–149; RESP 9–30; TEMP 36.7–37.4; O2SAT 86–100
[2021-03-11] MEDS: cefUROXime 1,500 MG in sodium chloride 0.9% (plus) 50 ML 100 MG IV ×2 (00:45→12:31)
[2021-03-11 00:54] LABS: Glucose Point of Care 125 mg/dL (70-110)
[2021-03-11] MEDS: oxyCODONE-APAP 5-325 mg Tablet PO ×3 (01:33→17:00)
--- NOTE | 2021-03-11 02:01 | PC.NURSE ---
UP TO CHAIR Patient uncomfortable and expressing pain in between shoulder blades. Patient was asked if standing or sitting in chair would relieve discomfort. Patient to standing position and moved to chair per activity restrictions about 2100 and has been in chair since then.
[2021-03-11 02:35] LABS: Glucose Point of Care 110 mg/dL (70-110)
[2021-03-11 02:35] LABS: Glucose Point of Care 110 mg/dL (70-110)
[2021-03-11] MEDS: fentaNYL 50 mcg/mL INJ 2mL IVP ×2 (03:34→13:36)
[2021-03-11 03:51] LABS: Basophils % 0.2 %; Eosinophils # 0.1 10^3/uL (0.0-0.8); Eosinophils % 0.7 %; Hemoglobin 12.1 g/dL (11.7-16.6); Lymphocytes % 16.4 %; Mean Corpuscular HGB Conc 31.8 g/dL (30.0-36.0); Mean Corpuscular Hemoglobin 30.6 pg (28.0-34.0); Mean Corpuscular Volume 96.2 fL (80-94); Mean Platelet Volume 10.5 fL (7.4-10.4); Monocytes # 1.5 10^3/uL (0.2-0.9); Neutrophils # 8.51 10^3/uL (1.8-7.7); Neutrophils % 70.2 %; Nucleated Red Blood Cells % 0 %; Platelet Count 133 10^3/cmm (130-400); Red Blood Count 3.95 10^6/uL (4.1-5.3); Red Cell Distribution Width 13.6 % (12.1-15.1); White Blood Count 12.1 10^3/uL (4.0-10.0)
[2021-03-11 04:16] LABS: Alanine Aminotransferase 24 U/L (0-41); Albumin Level 3.4 g/dL (3.5-5.2); Alkaline Phosphatase 90 IU/L (40-130); Anion Gap 10.4 (5-19); Aspartate Amino Transferase 31 U/L (0-40); Blood Urea Nitrogen 15 mg/dL (8-23); Carbon Dioxide 29 mmol/L (22-29); Chloride 104 mmol/L (98-107); Chol HDL Ratio 2.43 mg/dL (1.0-5.00); Cholesterol 85 mg/dL (0-200); Globulin 2.2 g/dL (1.3-4.6); Glomerular Filtration Rate 134.8 mL/min (90-130); Glucose 119 mg/dL (65-115); HDL Cholesterol 35 mg/dL (60-100); LDL Cholesterol Calculated 30 mg/dL (50-129); LDL Cholesterol Direct 38 mg/dL (0-100); LDL HDL Ratio 0.86 RATIO (0.00-3.22); Magnesium 1.9 mg/dL (1.7-2.3); Osmolality Calculated 290 mOsm/kg (285-295); Potassium 4.4 mmol/L (3.5-5.1); Sodium 139 mmol/L (136-145); Total Bilirubin 2.2 mg/dL (0.15-1.2); Total Protein 5.6 g/dL (6.6-8.7); Triglycerides 98 mg/dL (0-150)
[2021-03-11 04:20] LABS: Estmated Average Glucose 111; Hemoglobin A1C 5.5 % (4.0-6.0)
--- NOTE | 2021-03-11 06:00 | XR_ITS ---
WS: [id number] Portable AP upright chest, 03/11/2021 Clinical Data: POD#2 s/p cabg Comparison: Portable chest, 03/10/2021 Findings: No nodules, masses or effusions are seen. The heart is normal. The pulmonary vascularity is not increased. No pneumonia or pneumothorax is seen. The internal jugular venous catheter and [place]-G anz catheter have been removed. The 2 chest tubes one in the right and one in the left remain. There is minimal atelectasis over the surface of the left diaphragm. Mediastinal tubes are still in positio n. Midline sternotomy sutures are noted. XR/XR chest 1V portable [id number] Impression: 1. Removal of internal jugular venous catheter and one Brenda catheter. 2. No change in chest tubes and mediastinal tubes.
[2021-03-11 06:16] LABS: Glucose Point of Care 115 mg/dL (70-110)
[2021-03-11 06:16] LABS: Glucose Point of Care 127 mg/dL (70-110)
[2021-03-11 06:16] LABS: Glucose Point of Care 124 mg/dL (70-110)
--- NOTE | 2021-03-11 06:21 | PC.NURSE ---
SHIFT SUMMARY Patient had uneventful shift. Sinus rhythm in 90s with occasional PVC's. Oxygen titrated down to 1.5 L nasal cannula. Coulter catheter removed at 0600, urinal at bedside. 465 mL urine output. Right pleural chest tube, 75 mL serosanguineous drainage; right mediastinal, 20 mL pink tinged drainage; left pleural chest tube, 140 mL sanguineous drainage; and left mediastinal 40 mL pink tinged drainage. Patient has been sitting in chair since about 2100 last night. See MAR for pain medication administration. Right IJ CVL removed last night in 1900 hour. Afebrile. Insulin drip off at 0600, transitioned to ACHS and low dose sliding scale novolog per Dr. Streeter. Sternal incision wound vac in place, no drainage. Spoke with , Jennifer, last night to update her on patients progress.
[2021-03-11 07:22] LABS: Glucose Point of Care 99 mg/dL (70-110)
--- NOTE | 2021-03-11 07:33 | P.PN_ITS ---
Subjective Subjective: Interval history: Postop day #2 status post CABG x3. Uneventful night. No arrhythmias. Vital signs are stable. Chest tube output 455 cc past 24 hours. Chest x-ray remains clear. Good use of incentive spirometer. Up in chair on rounds. Sternotomy discomfort under good control. Vitals/I&O/Wt Last Vital Signs Temp 98.1 F 03/11/21 07:00 Pulse 104 H 03/11/21 07:00 Resp 30 H 03/11/21 07:00 BP 108/73 03/11/21 07:00 Pulse Ox 95 03/11/21 07:00 03/10/21 03/11/21 03/11/21 22:59 06:59 14:59 Intake Total 135.056 / 1688.095 483.111 / 2171.206 Output Total 325 / 505 740 / 1245 Balance -189.944 / 1183.095 -256.889 / 926.206 Weight last 48 hrs Weight 242 lb 8 oz Physical Exam Chest: COMMONS NORMALS: normal inspection of the chest OTHER: Surgical dressings are in place. Sternum is stable to palpation. Resp: COMMON NORMALS: normal respiratory effort, No use of accessory muscles, clear to auscultation bilaterally and percussion normal EFFORT & INSPECTION: Yes symmetric chest movement AUSCULTATION: clear to auscultation bilaterally PERCUSSION: percussion normal Cardio: COMMON NORMALS: regular rate, regular rhythm, S1 normal heart sound present, No murmurs present (Cardio) and No rub (Cardio) RATE: regular rate RHYTHM: regular rhythm HEART SOUNDS: S1 normal heart sound present Extremity: COMMON NORMALS: no clubbing, cyanosis or edema Urinary Catheter Management^: Coulter: Cath Placed During This Visit: yes Reason for Continuing Indwelling Catheter: Accurate Measurement of Urinary Output in Critically Ill Patients Urinary Catheter Date of Insertion: 03/09/21 Urinary Catheter Time of Insertion: 07:00 Data : 03/11/21 03:37 03/11/21 03:37 Micro: Microbiology 03/09/21 17:55 Gram Stain - Final Sputum - Endotracheal Tube Aspirate A&P Assessment and plan (1) Status post aorto-coronary artery bypass graft: Postop day #2 status post CABG x3. Plan: I will plan to remove the mediastinal and pleural drains later today after he ambulates. We will plan for transfer to [facility], intermediate care, later today. Greatly appreciate expertise and advise of Dr. Del Valle. Status: Acute Attestations Medical Necessity Statement*: Postop day #2 status post CABG Time Spent in Patient Care: 16 - 35 minutes Procedures Arterial Line Size (Gauge): 20 Coding Level of Care Code Acute Nuclear Unit Operator for Daphneyg Fwruben Diagnoses Status post aorto-coronary artery bypass graft Z95.1
[2021-03-11] MEDS: aspirin 81 mg Chew Tablet PO (08:03)
[2021-03-11] MEDS: metoprolol tartrate 25 mg Tablet PO ×2 (08:03→18:01)
[2021-03-11] MEDS: mupirocin oint 22 gm 1 APPLIC NASAL ×2 (08:04→17:46)
--- NOTE | 2021-03-11 09:52 | PC.CHAP ---
Pastoral Care Encounter/Spiritual Assessment Type of Contact [] Declined business center representative visit [] Patient/Family/Request visit [] Outpatient visit [] Follow-up visit [] Physician referral [] Code/Alert [x] Routine visit [] Staff referral [] Actively dying [] Patient sleeping [] Family support [] [] Out of room [] Palliative care [] [] Receiving care in room [] Pre-surgical visit [] Trauma [] Long length of stay [x] ICU visit [] Other: Relational/Emotional Strength [] Patient feels connected with others/family/visitors/staff [] Distress [] Loneliness/isolation [] Abandonment Spirituality of Patient [] Person of Elsy [] Attends Quaker of their Elsy [] Believes in Prayer [] Reads Bible or Anabaptism materials [] There are Spiritual issues to be addressed Manager Division Interventions [x] Prayer [x] Active listening [x] Non-anxious presence [x] Spiritual/emotional support [] Crisis/trauma care [] Spiritual counseling [] Bereavement support [] Provided bereavement packet [] Provided Bible/devotional materials [] Provided toy/stuffed animal, coloring book to patient or family member [] Provided Communion [] Anointing/[place] [] Salvation [x] Completed spiritual assessment [] Other: Impact on Illness or Injury [] Angry [] Fearful [] Anxious [] Often cries [] Exhaustion [] Unable to work [] Unable to attend pentecostal [] Unable to walk/stand [] Unable to read [] Unable to drive [] Unable to eat/drink [] Unable to sleep [] Unable to be with family [] Patient intubated [] Other: Summary by pass surgery... starting exercise Time spent with patient 10 min
--- NOTE | 2021-03-11 09:58 | PM.PN ---
Subjective Subjective: Interval history: He is out of bed and in chair. No arrhythmias on telemetry. Medications: Reviewed: Yes Medication Review Details: Current Medications Aspirin (Aspirin 81 Mg Chew Tablet) 81 mg PO DAILY [facility] Last Admin: 03/11/21 08:03 Dose: 81 mg Documented by: Atorvastatin Calcium (Atorvastatin 40 Mg Tablet) 40 mg PO BEDTIME [facility] Last Admin: 03/10/21 20:00 Dose: 40 mg Documented by: Chlorhexidine Gluconate (Chlorhexidine Gluconate 0.12% Btl 473 Ml) 15 ml MUCOUS MEM BID [facility] Last Admin: 03/11/21 07:38 Dose: Not Given Documented by: Dextrose (Dextrose 50% Syringe 50 Ml) 25 ml IVP ONCE PRN; Protocol PRN Reason: hypoglycemia protocol Dextrose (Dextrose 50% Syringe 50 Ml) 50 ml IVP PRN PRN; Protocol PRN Reason: hypoglycemia protocol Epinephrine (Racepinephrine 0.5 Ml Neb) 0.5 ml INHALATION Q6H.RESPIRATORY PRN PRN Reason: Stridor Fentanyl (Fentanyl 50 Mcg/Ml Inj 2ml) 50 mcg IVP Q1H PRN PRN Reason: SEVERE PAIN Last Admin: 03/11/21 03:34 Dose: 50 mcg Documented by: Glucagon (Glucagon 1 Mg/Ml Inj 1 Ml) 1 mg IM ONCE PRN; Protocol PRN Reason: Adult Acute Hypoglycemia Prot Hydralazine HCl (Hydralazine 20 Mg/Ml Inj 1 Ml) 5 mg IVP ONCE PRN PRN Reason: Systolic BP > 140 mmHg Dobutamine HCl/Dextrose (Dobutamine Drip) 500 mg in 250 mls @ 0 mls/hr IV .Q0M PRN; Protocol PRN Reason: Cardiac Output Dopamine HCl/Dextrose (Intropin Drip) 400 mg in 250 mls @ 19.816 mls/hr IV CONT PRN; Protocol PRN Reason: Hypotension Albumin Human (Albumin) 12.5 gm in 250 mls @ 600 mls/hr IV PRN PRN PRN Reason: For CVP < 4 or SBP< 90 Last Infusion: 03/09/21 19:00 Dose: Infused Documented by: Dextrose (D5w) 500 mls @ 100 mls/hr IV ONCE PRN; Protocol PRN Reason: Adult Acute Hypoglycemia Prot Norepinephrine Bitartrate 4 mg (/ Dextrose) 254 mls @ 10.583 mls/hr IV .Q24H PRN; Protocol PRN Reason: HYPOTENSION Phenylephrine HCl 25 mg/ (Sodium Chloride) 252.5 mls @ 0 mls/hr IV .Q0M PRN; Protocol PRN Reason: HYPOTENSION Last Titration: 03/09/21 22:30 Dose: 0 mcg/min, 0 mls/hr Documented by: Nitroglycerin/Dextrose (Nitroglycerin Drip) 50 mg in 250 mls @ 0 mls/hr IV .Q0M UNIQUE; Protocol Sodium Nitroprusside 50 mg/ (Dextrose) 252 mls @ 0 mls/hr IV .Q0M UNIQUE; Protocol Labetalol HCl 300 mg/ Sodium (Chloride) 300 mls @ 30 mls/hr IV .Q10H PRN; Protocol PRN Reason: Systolic BP > 140 mmHg Insulin Human Regular 250 unit (/ Sodium Chloride) 252.5 mls @ 0 mls/hr IV .Q0M UNIQUE; Protocol Last Titration: 03/11/21 06:00 Dose: Infused Documented by: Propofol (Diprivan) 1,000 mg in 100 mls @ 0 mls/hr IV .Q0M UNIQUE; Protocol Last Titration: 03/10/21 02:04 Dose: Infused Documented by: Cefuroxime Sodium 1,500 mg/ (Sodium Chloride) 50 mls @ 100 mls/hr IV Q12H [facility]; Protocol Last Infusion: 03/11/21 01:15 Dose: Infused Documented by: Insulin Aspart (Insulin Aspart 100 Unit/1 Ml) 0 unit SUBCUT WM&BEDTIME [facility]; Protocol Last Admin: 03/11/21 07:26 Dose: Not Given Documented by: Labetalol HCl (Labetalol 5 Mg/Ml Sdv 20ml) 10 mg IVP Q5M PRN PRN Reason: Systolic BP >140 mmHG Metoprolol Tartrate (Metoprolol Tartrate 25 Mg Tablet) 25 mg PO BID@0900,2100 UNIQUE Last Admin: 03/11/21 08:03 Dose: 25 mg Documented by: Midazolam HCl (Midazolam 1 Mg/Ml Inj 2 Ml) 1 mg IVP Q1H PRN PRN Reason: Sedation for Borges score < 4. Morphine Sulfate (Morphine 4 Mg/Ml Sdv 1 Ml) 2 mg IVP Q1H PRN PRN Reason: BREAKTHROUGH PAIN Last Admin: 03/10/21 22:57 Dose: 2 mg Documented by: Mupirocin (Mupirocin Oint 22 Gm) 1 applic NASAL BID UNIQUE Last Admin: 03/11/21 08:04 Dose: 1 applic Documented by: Naloxone HCl (Naloxone 0.4 Mg/Ml Sdv) 0.1 mg IVP Q2M PRN PRN Reason: OPIATERV Ondansetron HCl (Ondansetron 2 Mg/Ml Sdv 2 Ml) 4 mg IVP Q6H PRN PRN Reason: NAUSEA Oxycodone/Acetaminophen (Oxycodone-Apap 5-325 Mg Tablet) 1 - 2 tab PO Q6H PRN PRN Reason: MILD TO MODERATE PAIN Last Admin: 03/11/21 09:00 Dose: 2 tab Documented by: Vitals/I&O/Wt Last Vital Signs Temp 98.1 F 03/11/21 07:00 Pulse 100 03/11/21 09:00 Resp 24 H 03/11/21 09:00 BP 108/79 03/11/21 09:00 Pulse Ox 92 03/11/21 09:00 03/10/21 03/11/21 03/11/21 22:59 06:59 14:59 Intake Total 135.056 / 1688.095 483.111 / 2171.206 240 / 240 Output Total 325 / 505 740 / 1245 Balance -189.944 / 1183.095 -256.889 / 926.206 240 / 240 Weight last 48 hrs Weight 242 lb 8 oz Physical Exam Narrative: EXAM NARRATIVE: Gen: sitting in chair, NAD HEENT: mild pallor, PERRL, EOMI Neck:No JVD appreciated Chest: midline sternotomy wound dressed, chest tubes in situ RS: CTA except at bilateral bases; No wheezing or rales CVS:S1, S2 +, No murmur, rub or gallop PA: soft, NTND, BS+ NA Ext:Right LE with RIGO wrap, no edema CELLOPHANE TESTER: AAOx 3, No FND Urinary Catheter Management^: Coulter: Cath Placed During This Visit: yes Reason for Continuing Indwelling Catheter: Accurate Measurement of Urinary Output in Critically Ill Patients Urinary Catheter Date of Insertion: 03/09/21 Urinary Catheter Time of Insertion: 07:00 Data : 03/11/21 03:37 03/11/21 03:37 Micro: Microbiology 03/09/21 17:55 Gram Stain - Final Sputum - Endotracheal Tube Aspirate A&P Assessment and plan (1) Status post aorto-coronary artery bypass graft: POD#2 CABG x 3 -doing well. Poist op care per Dr. Streeter. -currently on ASA, statin and low dose metoprolol. Status: Acute (2) 3-vessel coronary artery disease: Status: Acute (3) LV dysfunction: Mild LV dysfunction. Status: Acute (4) HTN (hypertension): Status: Acute Qualifiers: Hypertension type: essential hypertension Qualified Code(s): I10 - Essential (primary) hypertension (5) Hyperlipidemia: Status: Acute Qualifiers: Hyperlipidemia type: unspecified Qualified Code(s): E78.5 - Hyperlipidemia, unspecified (6) Frequent PVCs: Status: Acute Attestations Medical Necessity Statement*: needs hospital stay post CABG. Time Spent in Patient Care: 16 - 35 minutes (>than 50% of time spent in counselling and/or direct pt care on unit). Procedures Arterial Line Size (Gauge): 20 Coding Level of Care Code Acute Director Of Retail for Chg Fwd Diagnoses Status post aorto-coronary artery bypass graft Z95.1 3-vessel coronary artery disease I25.10 LV dysfunction I51.9 HTN (hypertension) I10 Hypertension type: essential hypertension Hyperlipidemia E78.5 Hyperlipidemia type: unspecified Frequent PVCs I49.3
[2021-03-11 11:15] LABS: Glucose Point of Care 137 mg/dL (70-110)
--- NOTE | 2021-03-11 11:36 | PC.NUTR ---
Nutrition education for s/t CABG provided. Will follow-up as appropriate.
[2021-03-11 16:37] LABS: Glucose Point of Care 101 mg/dL (70-110)
--- NOTE | 2021-03-11 17:04 | ECG_ITS ---
[facility] Test Date: 2021-03-11 Pat Name: Reynaldo Bo Department: Room: ICU10 Gender: Male [place] Round Butcher: : 1955 Requested By: Jason Streeter Order Number: [id number] Rani MD: Philomena Garcia M.D. Measurements Intervals [place] Rate: 149 P: SC: QRS: -13 QRSD: 104 T: -40 QT: 283 QTc: 446 Interpretive Statements ATRIAL FIBRILLATION WITH RAPID VENTRICULAR RESPONSE WARNING: DATA QUALITY MAY AFFECT INTERPRETATION Compared to ECG 03/10/2021 06:12:41 Sinus tachycardia no longer present Intraventricular conduction delay no longer present T-wave abnormality no longer present Electronically Signed On 03-11-2021 23:58:52 CDT by Philomena Garcia M.D. [id number]
[2021-03-11 18:19] LABS: Blood Urea Nitrogen 17 mg/dL (8-23); Chloride 101 mmol/L (98-107); Glomerular Filtration Rate 112.8 mL/min (90-130); Glucose 127 mg/dL (65-115); Osmolality Calculated 285 mOsm/kg (285-295); Potassium 4.4 mmol/L (3.5-5.1); Sodium 136 mmol/L (136-145)
[2021-03-11] MEDS: enoxaparin 100 mg/mL Syringe SUBCUT (18:28)
[2021-03-11 18:36] LABS: Anion Gap 10.4 (5-19); Carbon Dioxide 29 mmol/L (22-29)
[2021-03-11] MEDS: midazolam 1 mg/mL INJ 2 mL 4 MG IVP (18:45)
[2021-03-11] MEDS: fentaNYL 50 mcg/mL INJ 2mL 250 MCG IVP (18:45)
[2021-03-11] MEDS: digoxin 250 mcg/ml INJ 2 mL 500 MCG IVP (19:04)
[2021-03-11] MEDS: sodium chloride 0.9% 500 ML 999 ML IV (19:09)
--- NOTE | 2021-03-11 19:17 | PM.PN ---
Subjective Subjective: Interval history: I was informed that chest pressure before patient was transferred out of unit patient went into atrial flutter/fib with rapid ventricular response with heart rate in 150s to 160s. Patient at the time denies having any chest pain complain of some dizziness. No shortness of breath. Blood pressure dropped with systolic in low 90s. -Amiodarone 150 mg IV bolus was given followed by amiodarone drip at 1 mg/h. Patient received Lovenox 1 mg/kg x 1. Metoprolol tartrate 25 mg p.o. x1 was administered as well. -Patient continued to be in flutter/fib with heart rate in 140s to 150s. Medications: Reviewed: Yes Vitals/I&O/Wt Last Vital Signs Temp 99.3 F 03/11/21 18:00 Pulse 145 H 03/11/21 18:00 Resp 23 H 03/11/21 18:00 BP 97/72 03/11/21 18:00 Pulse Ox 99 03/11/21 18:00 03/11/21 03/11/21 03/11/21 06:59 14:59 22:59 Intake Total 483.111 / 2171.206 582 / 582 Output Total 740 / 1245 340 / 340 Balance -256.889 / 926.206 242 / 242 Weight last 48 hrs Weight 242 lb 8 oz Physical Exam Narrative: EXAM NARRATIVE: Gen: sitting in chair, NAD HEENT: mild pallor, PERRL, EOMI Neck:No JVD appreciated Chest: midline sternotomy wound dressed, chest tubes in situ RS: CTA except at bilateral bases; No wheezing or rales CVS:S1, S2 irregular of variable intensity, tachycardia present, No murmur, rub or gallop PA: soft, NTND, BS+ NA Ext:Right LE with RIGO wrap, trace edema COAL UNLOADER: AAOx 3, No FND Urinary Catheter Management^: Coulter: Cath Placed During This Visit: yes Reason for Continuing Indwelling Catheter: Accurate Measurement of Urinary Output in Critically Ill Patients Urinary Catheter Date of Insertion: 03/09/21 Urinary Catheter Time of Insertion: 07:00 Data : 03/11/21 03:37 03/11/21 17:24 Micro: Microbiology 03/09/21 17:55 Gram Stain - Final Sputum - Endotracheal Tube Aspirate Sputum Culture - Preliminary A&P Assessment and plan (1) Status post aorto-coronary artery bypass graft: POD#2 CABG x 3 - Post op care per Dr. Streeter. -currently on ASA, statin and low dose metoprolol. Status: Acute (2) Atrial fibrillation with rapid ventricular response: Patient failed cardioversion x2. -Continue amiodarone drip with plan to transition to amiodarone 400 mg p.o. 3 times daily tomorrow. -Start on therapeutic Lovenox. -I will load with digoxin. -lasix 20 mg IV x 1 -In case he remains in A. fib with RVR will attempt CV at a later date. Status: Acute (3) 3-vessel coronary artery disease: Status: Acute (4) LV dysfunction: Mild LV dysfunction. Status: Acute (5) HTN (hypertension): Status: Acute Qualifiers: Hypertension type: essential hypertension Qualified Code(s): I10 - Essential (primary) hypertension (6) Hyperlipidemia: Status: Acute Qualifiers: Hyperlipidemia type: unspecified Qualified Code(s): E78.5 - Hyperlipidemia, unspecified (7) Frequent PVCs: Status: Acute Attestations Medical Necessity Statement*: needs ICU stay post CABG and for A. fib with RVR Time Spent in Patient Care: Greater than 35 minutes (>than 50% of time spent in counselling and/or direct pt care on unit). Critical Care Time: The high probability of a clinically significant, sudden or life threatening deterioration of the patient's [] system(s) required my full and direct attention, intervention and personal management. The critical care time is as shown. This time is in addition to time spent performing any reported procedures but includes the following: [x] Data and vital sign review and interpretation [x] Patient assessment, examination and intervention [x] Documentation [x] Medication orders and management Critical Care Time (min): 40 Procedures Time out/Consent Time Out Performed: Yes Consent for Procedure: Consent obtained from patient and Risks & Benefits reviewed Procedure Narrative Cardioversion procedure note. Indication: Symptomatic atrial fibrillation Anticoagulation: Lovenox Sedation: ASA 2 airway 2. Conscious sedation; patient received 3 mg of Versed and 50 mcg of fentanyl Procedure was explained to the patient in detail. Risks and benefits of the procedures were discussed. Informed consent was obtained. After time out was called patient received sedation. Pads were placed anterolaterally. [He received 150 J of synchronized biphasic shock ?1 without success followed by another 150 J of synchronized biphasic shock x1 with pads placed anteroposteriorly. Unfortunately patient remained in atrial flutter with rapid ventricle response. Patient tolerated the procedure well. Recovery: In unit Arterial Line Size (Gauge): 20 Coding Level of Care Code Acute Coverage Specialist Rn for Chg Fwd Diagnoses Status post aorto-coronary artery bypass graft Z95.1 Atrial fibrillation with rapid ventricular response I48.91 3-vessel coronary artery disease I25.10 LV dysfunction I51.9 HTN (hypertension) I10 Hypertension type: essential hypertension Hyperlipidemia E78.5 Hyperlipidemia type: unspecified Frequent PVCs I49.3
--- NOTE | 2021-03-11 19:24 | PC.NURSE ---
ATRIAL FIBRILLATION WITH RAPID VENTRICULAR RESPONSE Pt complained of pain at 1700, Breanna gave pt a pain pill at this time. Pt denies chest pain, SOB and Vital signs at this time: HR:110 RR: 23 BP: 120/76 and O2: 92 on room air. Shortly after pt became tachycardic HR ranging from 140s-180s. Patient assisted from chair to bed with the assistance of two nurses.Dr. Streeter called at 1708 and notified of patient's change of condition, Dr. Streeter ordered to notify for further orders. Dr. Del Valle was called at 1710 and reported at bedside shortly after. EKG,BMP, and Magnesium level ordered stat. EKG results below: ATRIAL FIBRILLATION WITH RAPID VENTRICULAR RESPONSE WARNING: DATA QUALITY MAY AFFECT INTERPRETATION Compared to ECG 03/10/2021 06:12:41 Sinus tachycardia no longer present Intraventricular conduction delay no longer present T-wave abnormality no longer present Magnesium level:2.0 Potassium level: 4.4 Amiodarone bolus given at 1724, amiodarone drip started at 1738 per 's orders. Vital signs monitored Q5min. Nurse stayed at patient bedside. 1800 this nurse reports to Dr. Del Valle that HR had no change. Orders to given 2100 dose of metoprolol 25mg PO now. 183 no change in HR. VS: Temp: 99.3 oral, HR: 145, RR:23, BP: 116/76, O2: 99% on 4L NC. Dr. Del Valle educated patient on Cardioversion. Patient signed consent form, this nurse was witness. See Patient's chart. 1841 Beau Watson LPN, KAYLYNN Carlos, Margaux RN, Sukhjinder RN, and Dr. Del Valle at bedside. KAYLYNN Carlos administered 2mg IVP of versed and 200mcg of fentanyl IVP then another 1mg of versed IVP per Dr. Del Valle's orders. Pt then received 150j shock. Arrhythmia persisted. Placement pads changed, second shock given 150j per Dr. Del Valle's orders. Arrhythmia refractory to cardioversion. 1908 orders to give 250mL bolus and 500mcg IVP of Digoxin. KAYLYNN Damico administered these medications. Pt resting on NRB at 15L. in waiting room received an update by Breanna CHAIDEZ and . approved that could stay over night with patient. Patient Vital Signs listed below: HR:132 O2:98% on NRB RR:21 BP:91/74
[2021-03-11] MEDS: pantoprazole DR 40 mg Tablet PO (20:26)
[2021-03-11] MEDS: FUROsemide 10 mg/mL SDV 2mL 20 MG IVP (20:26)
[2021-03-11] MEDS: atorvastatin 40 mg Tablet PO (20:26)
[2021-03-11] MEDS: digoxin 250 mcg/ml INJ 2 mL IVP (23:26)
[2021-03-12] VITALS (23 sets, daily range): BP systolic 105–133; BP diastolic 64–80; PULSE 83–106; RESP 16–26; TEMP 36.7–37.3; O2SAT 91–100
--- NOTE | 2021-03-12 00:04 | PC.NURSE ---
Converted Pt converted to SR rate 80's with occasional PVC. Amio gtt continues to infuse at 1mcg/min per Dr. Del Valle.
[2021-03-12] MEDS: oxyCODONE-APAP 5-325 mg Tablet PO ×3 (02:32→20:48)
--- NOTE | 2021-03-12 04:00 | XR_ITS ---
WS: [id number] Portable AP upright chest, 03/12/2021 Clinical Data: Post op CABG Comparison: Portable chest, 03/11/2021. Findings: No nodules, masses or effusions are seen. The heart is normal. The aortic arch and descendi ng aorta show tortuosity. No pneumonia or pneumothorax is present. The chest tubes have been removed. Minimal atelectasis over the surface of the left diaphragm is seen. Midline sternotomy sutures are p resent. XR/XR chest 1V portable [id number] Impression: 1. Removal of both chest tubes. 2. Minimal atelectasis over the surface of the left diaphragm. 3. Atherosclerosis.
[2021-03-12 04:04] LABS: Basophils % 0.3 %; Eosinophils # 0.3 10^3/uL (0.0-0.8); Hematocrit 34.4 % (42.0-52.0); Hemoglobin 11.1 g/dL (11.7-16.6); Lymphocytes # 1.4 10^3/uL (0.8-4.8); Lymphocytes % 15.1 %; Mean Corpuscular HGB Conc 32.3 g/dL (30.0-36.0); Mean Corpuscular Hemoglobin 30.9 pg (28.0-34.0); Mean Corpuscular Volume 95.8 fL (80-94); Mean Platelet Volume 10.3 fL (7.4-10.4); Monocytes # 0.9 10^3/uL (0.2-0.9); Neutrophils # 6.66 10^3/uL (1.8-7.7); Neutrophils % 71.3 %; Nucleated Red Blood Cells % 0 %; Platelet Count 137 10^3/cmm (130-400); Red Blood Count 3.59 10^6/uL (4.1-5.3); Red Cell Distribution Width 13.2 % (12.1-15.1); White Blood Count 9.3 10^3/uL (4.0-10.0)
[2021-03-12 04:24] LABS: Alanine Aminotransferase 24 U/L (0-41); Alkaline Phosphatase 155 IU/L (40-130); Anion Gap 11.8 (5-19); Aspartate Amino Transferase 29 U/L (0-40); Blood Urea Nitrogen 18 mg/dL (8-23); Calcium 7.8 mg/dL (8.5-10.5); Carbon Dioxide 28 mmol/L (22-29); Chloride 100 mmol/L (98-107); Globulin 2.4 g/dL (1.3-4.6); Glomerular Filtration Rate 166.4 mL/min (90-130); Glucose 115 mg/dL (65-115); Magnesium 1.9 mg/dL (1.7-2.3); Osmolality Calculated 285 mOsm/kg (285-295); Potassium 3.8 mmol/L (3.5-5.1); Sodium 136 mmol/L (136-145); Total Protein 5.4 g/dL (6.6-8.7)
--- NOTE | 2021-03-12 05:38 | PC.NURSE ---
Pt up to chair with minimal assist. Tolerated well. Dr. Ware at bedside, gave verbal orders to hold Lovenox since patient is now in sinus rhythm. Verbal orders given for potassium and electrolyte replacement.
--- NOTE | 2021-03-12 05:54 | P.PN_ITS ---
Subjective Subjective: Interval history: Converted back to sinus rhythm around midnight. Up in chair on rounds. He looks quite good. He responded well to diuresis and appears to be negative about 1 L for the past 24 hours. I do note that the 2 prior days he was probably well over 2 L. Volume expansion and reequilibration of third spaced fluid may have contributed to his episode of A. fib with RVR. Currently being maintained on IV amiodarone. Hopefully this can be converted to oral. Lab has been reviewed. We will replace magnesium and potassium. Chest x-ray remains clear. Vitals/I&O/Wt Last Vital Signs Temp 99.1 F 03/12/21 05:26 Pulse 88 03/12/21 05:00 Resp 16 03/12/21 05:00 BP 114/64 03/12/21 05:00 Pulse Ox 94 03/12/21 05:00 03/11/21 03/11/21 03/12/21 14:59 22:59 06:59 Intake Total 582 / 582 200 / 782 120 / 902 Output Total 340 / 340 625 / 965 325 / 1290 Balance 242 / 242 -425 / -183 -205 / -388 Weight last 48 hrs Weight 237 lb Weight 236 lb 14.4 oz Weight 242 lb 8 oz Physical Exam Chest: COMMONS NORMALS: normal inspection of the chest and normal palpation of entire chest wall Resp: COMMON NORMALS: normal respiratory effort, No retractions, No use of accessory muscles, clear to auscultation bilaterally and percussion normal EFFORT & INSPECTION: Yes symmetric chest movement AUSCULTATION: clear to auscultation bilaterally PERCUSSION: percussion normal Cardio: COMMON NORMALS: regular rate, regular rhythm, S1 normal heart sound present, No murmurs present (Cardio) and No rub (Cardio) RATE: regular rate RHYTHM: regular rhythm HEART SOUNDS: S1 normal heart sound present Urinary Catheter Management^: Coulter: Cath Placed During This Visit: yes Reason for Continuing Indwelling Catheter: Accurate Measurement of Urinary Output in Critically Ill Patients Urinary Catheter Date of Insertion: 03/09/21 Urinary Catheter Time of Insertion: 07:00 Data : 03/12/21 03:43 03/12/21 03:43 Micro: Microbiology 03/09/21 17:55 Gram Stain - Final Sputum - Endotracheal Tube Aspirate Sputum Culture - Preliminary A&P Assessment and plan (1) Status post aorto-coronary artery bypass graft: POD #3 status post CABG x3. Postop A. fib, resolved. Greatly appreciate expertise and oversight of Dr. Del Valle. Continue postop CABG recovery program. Antiarrhythmic management by Dr. Del Valle From surgical standpoint may transfer to [facility] once cleared by her. Status: Acute Attestations Medical Necessity Statement*: POD #3 status post CABG. Postop A. fib/resolved Time Spent in Patient Care: less than 15 minutes Procedures Arterial Line Size (Gauge): 20 Coding Level of Care Code Acute Flight Test Mechanic for Chg Fwd Diagnoses Status post aorto-coronary artery bypass graft Z95.1
[2021-03-12] MEDS: lidocaine 1% 5 ML in potassium chloride premix 100 ML 50 ML IV (06:32)
[2021-03-12 07:22] LABS: Glucose Point of Care 102 mg/dL (70-110)
[2021-03-12] MEDS: metoprolol tartrate 25 mg Tablet PO ×2 (08:01→20:16)
[2021-03-12] MEDS: aspirin 81 mg Chew Tablet PO (08:01)
[2021-03-12] MEDS: amiodarone 200 mg Tablet 400 MG PO ×2 (08:02→17:02)
[2021-03-12] MEDS: pantoprazole DR 40 mg Tablet PO (08:02)
[2021-03-12] MEDS: mupirocin oint 22 gm 1 APPLIC NASAL ×2 (08:03→17:03)
--- NOTE | 2021-03-12 09:39 | PC.CHAP ---
Pastoral Care Encounter/Spiritual Assessment Type of Contact [] Declined quick print operator visit [] Patient/Family/Request visit [] Outpatient visit [] Follow-up visit [] Physician referral [] Code/Alert [x] Routine visit [] Staff referral [] Actively dying [] Patient sleeping [] Family support [] [] Out of room [] Palliative care [] [x] Receiving care in room [] Pre-surgical visit [] Trauma [] Long length of stay [x] ICU visit [] Other: Relational/Emotional Strength [] Patient feels connected with others/family/visitors/staff [] Distress [] Loneliness/isolation [] Abandonment Spirituality of Patient [] Person of Elsy [] Attends Jehovah'S Witness of their Elsy [] Believes in Prayer [] Reads Bible or Alevism materials [] There are Spiritual issues to be addressed Pipeline Executive Interventions [x] Prayer [] Active listening [] Non-anxious presence [] Spiritual/emotional support [] Crisis/trauma care [] Spiritual counseling [] Bereavement support [] Provided bereavement packet [] Provided Bible/devotional materials [] Provided toy/stuffed animal, coloring book to patient or family member [] Provided Communion [] Anointing/Pelzer [] Salvation [x] Completed spiritual assessment [] Other: Impact on Illness or Injury [] Angry [] Fearful [] Anxious [] Often cries [] Exhaustion [] Unable to work [] Unable to attend cheondoism [] Unable to walk/stand [] Unable to read [] Unable to drive [] Unable to eat/drink [] Unable to sleep [] Unable to be with family [] Patient intubated [] Other: Summary Time spent with patient
--- NOTE | 2021-03-12 10:00 | PC.NURSE ---
Patient Rounding Aminodarone 400mg given PO at 0800 per 's orders and aminodarone drip stopped 30 mins after PO medication was given per 's orders. Pt worked with PT and OT this am and tolerated well, see documentation. Pt sitting up in chair on RA, denies chest pain, SOB, and N&V. VS: HR:90 NSR, RR:25, O2: 96% and BP:117/78. Dr. Del Valle at bedside discussing plan of care at this time. Orders to transfer patient up to the Medr floor later this morning. was notified by this nurse.
--- NOTE | 2021-03-12 10:35 | PC.NURSE ---
Transferred to [facility] Report called to Tracy CHAIDEZ on [facility]. Pt transferred to [facility], room 268 by this nurse via wheelchair. Pt transferred from wheelchair to chair and hooked up to telemetry. Tracy CHAIDEZ at bedside obtaining vitals. Pt A&O at time of transfer.
--- NOTE | 2021-03-12 10:54 | PM.PN ---
Subjective Subjective: Interval history: Last 24 hrs: I was informed that just before patient was transferred out of unit patient went into atrial flutter/fib with rapid ventricular response with heart rate in 150s to 160s. Patient at the time denies having any chest pain complain of some dizziness. No shortness of breath. Blood pressure dropped with systolic in low 90s. -Amiodarone 150 mg IV bolus was given followed by amiodarone drip at 1 mg/h. Patient received Lovenox 1 mg/kg x 1. Metoprolol tartrate 25 mg p.o. x1 was administered as well. -Patient continued to be in flutter/fib with heart rate in 140s to 150s. CVx2 attempted unsuccessfully. He received lasix 20 mg IV x1, digoxin 500mcg x 1 followed by 250 mcgx 1 around 11:30 pm. He converted to SR at around midnight and has stayed in sinus since then. Feels well this morning and doing well his PT. Medications: Reviewed: Yes Medication Review Details: Current Medications Aspirin (Aspirin 81 Mg Chew Tablet) 81 mg PO DAILY [facility] Last Admin: 03/11/21 08:03 Dose: 81 mg Documented by: Atorvastatin Calcium (Atorvastatin 40 Mg Tablet) 40 mg PO BEDTIME [facility] Last Admin: 03/10/21 20:00 Dose: 40 mg Documented by: Chlorhexidine Gluconate (Chlorhexidine Gluconate 0.12% Btl 473 Ml) 15 ml MUCOUS MEM BID [facility] Last Admin: 03/11/21 07:38 Dose: Not Given Documented by: Dextrose (Dextrose 50% Syringe 50 Ml) 25 ml IVP ONCE PRN; Protocol PRN Reason: hypoglycemia protocol Dextrose (Dextrose 50% Syringe 50 Ml) 50 ml IVP PRN PRN; Protocol PRN Reason: hypoglycemia protocol Epinephrine (Racepinephrine 0.5 Ml Neb) 0.5 ml INHALATION Q6H.RESPIRATORY PRN PRN Reason: Stridor Fentanyl (Fentanyl 50 Mcg/Ml Inj 2ml) 50 mcg IVP Q1H PRN PRN Reason: SEVERE PAIN Last Admin: 03/11/21 03:34 Dose: 50 mcg Documented by: Glucagon (Glucagon 1 Mg/Ml Inj 1 Ml) 1 mg IM ONCE PRN; Protocol PRN Reason: Adult Acute Hypoglycemia Prot Hydralazine HCl (Hydralazine 20 Mg/Ml Inj 1 Ml) 5 mg IVP ONCE PRN PRN Reason: Systolic BP > 140 mmHg Dobutamine HCl/Dextrose (Dobutamine Drip) 500 mg in 250 mls @ 0 mls/hr IV .Q0M PRN; Protocol PRN Reason: Cardiac Output Dopamine HCl/Dextrose (Intropin Drip) 400 mg in 250 mls @ 19.816 mls/hr IV CONT PRN; Protocol PRN Reason: Hypotension Albumin Human (Albumin) 12.5 gm in 250 mls @ 600 mls/hr IV PRN PRN PRN Reason: For CVP < 4 or SBP< 90 Last Infusion: 03/09/21 19:00 Dose: Infused Documented by: Dextrose (D5w) 500 mls @ 100 mls/hr IV ONCE PRN; Protocol PRN Reason: Adult Acute Hypoglycemia Prot Norepinephrine Bitartrate 4 mg (/ Dextrose) 254 mls @ 10.583 mls/hr IV .Q24H PRN; Protocol PRN Reason: HYPOTENSION Phenylephrine HCl 25 mg/ (Sodium Chloride) 252.5 mls @ 0 mls/hr IV .Q0M PRN; Protocol PRN Reason: HYPOTENSION Last Titration: 03/09/21 22:30 Dose: 0 mcg/min, 0 mls/hr Documented by: Nitroglycerin/Dextrose (Nitroglycerin Drip) 50 mg in 250 mls @ 0 mls/hr IV .Q0M UNIQUE; Protocol Sodium Nitroprusside 50 mg/ (Dextrose) 252 mls @ 0 mls/hr IV .Q0M UNIQUE; Protocol Labetalol HCl 300 mg/ Sodium (Chloride) 300 mls @ 30 mls/hr IV .Q10H PRN; Protocol PRN Reason: Systolic BP > 140 mmHg Insulin Human Regular 250 unit (/ Sodium Chloride) 252.5 mls @ 0 mls/hr IV .Q0M UNIQUE; Protocol Last Titration: 03/11/21 06:00 Dose: Infused Documented by: Propofol (Diprivan) 1,000 mg in 100 mls @ 0 mls/hr IV .Q0M UNIQUE; Protocol Last Titration: 03/10/21 02:04 Dose: Infused Documented by: Cefuroxime Sodium 1,500 mg/ (Sodium Chloride) 50 mls @ 100 mls/hr IV Q12H UNIQUE; Protocol Last Infusion: 03/11/21 01:15 Dose: Infused Documented by: Insulin Aspart (Insulin Aspart 100 Unit/1 Ml) 0 unit SUBCUT WM&BEDTIME [facility]; Protocol Last Admin: 03/11/21 07:26 Dose: Not Given Documented by: Labetalol HCl (Labetalol 5 Mg/Ml Sdv 20ml) 10 mg IVP Q5M PRN PRN Reason: Systolic BP >140 mmHG Metoprolol Tartrate (Metoprolol Tartrate 25 Mg Tablet) 25 mg PO BID@0900,2100 [facility] Last Admin: 03/11/21 08:03 Dose: 25 mg Documented by: Midazolam HCl (Midazolam 1 Mg/Ml Inj 2 Ml) 1 mg IVP Q1H PRN PRN Reason: Sedation for Bogres score < 4. Morphine Sulfate (Morphine 4 Mg/Ml Sdv 1 Ml) 2 mg IVP Q1H PRN PRN Reason: BREAKTHROUGH PAIN Last Admin: 03/10/21 22:57 Dose: 2 mg Documented by: Mupirocin (Mupirocin Oint 22 Gm) 1 applic NASAL BID [facility] Last Admin: 03/11/21 08:04 Dose: 1 applic Documented by: Naloxone HCl (Naloxone 0.4 Mg/Ml Sdv) 0.1 mg IVP Q2M PRN PRN Reason: OPIATERV Ondansetron HCl (Ondansetron 2 Mg/Ml Sdv 2 Ml) 4 mg IVP Q6H PRN PRN Reason: NAUSEA Oxycodone/Acetaminophen (Oxycodone-Apap 5-325 Mg Tablet) 1 - 2 tab PO Q6H PRN PRN Reason: MILD TO MODERATE PAIN Last Admin: 03/11/21 09:00 Dose: 2 tab Documented by: Vitals/I&O/Wt Last Vital Signs Temp 99.0 F 03/12/21 07:00 Pulse 90 03/12/21 10:00 Resp 25 H 03/12/21 10:00 BP 117/78 03/12/21 10:00 Pulse Ox 96 03/12/21 10:00 03/11/21 03/12/21 03/12/21 22:59 06:59 14:59 Intake Total 553 / 1135 172 / 1307 983 / 983 Output Total 625 / 965 325 / 1290 100 / 100 Balance -72 / 170 -153 / 17 883 / 883 Weight last 48 hrs Weight 237 lb Weight 236 lb 14.4 oz Physical Exam Narrative: EXAM NARRATIVE: Gen: sitting in chair, NAD HEENT: mild pallor, PERRL, EOMI Neck:No JVD appreciated Chest: midline sternotomy wound dressed, chest tubes in situ RS: CTA except at bilateral bases; No wheezing or rales CVS:S1, S2 regular, No murmur, rub or gallop PA: soft, NTND, BS+ NA Ext:right sided trace-1+ edema and mild bruising noted 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 Streeter. -currently on ASA, statin and low dose metoprolol. Status: Acute (2) Atrial fibrillation with rapid ventricular response: Patient failed cardioversion x2. -Off amiodarone drip and start on amiodarone 400 mg p.o. BID. Status: Acute (3) 3-vessel coronary artery disease: Status: Acute (4) LV dysfunction: Mild LV dysfunction. Status: Acute (5) HTN (hypertension): Status: Acute Qualifiers: Hypertension type: essential hypertension Qualified Code(s): I10 - Essential (primary) hypertension (6) Hyperlipidemia: Status: Acute Qualifiers: Hyperlipidemia type: unspecified Qualified Code(s): E78.5 - Hyperlipidemia, unspecified (7) Frequent PVCs: Status: Acute Attestations Medical Necessity Statement*: needs hospital stay post CABG and for A. fib with RVR Time Spent in Patient Care: 16 - 35 minutes (>than 50% of time spent in counselling and/or direct pt care on unit). Coding Level of Care Code Acute Gear Generator Set Up Operator for Chg Fwd Diagnoses Status post aorto-coronary artery bypass graft Z95.1 Atrial fibrillation with rapid ventricular response I48.91 3-vessel coronary artery disease I25.10 LV dysfunction I51.9 HTN (hypertension) I10 Hypertension type: essential hypertension Hyperlipidemia E78.5 Hyperlipidemia type: unspecified Frequent PVCs I49.3
[2021-03-12 12:05] LABS: Anion Gap 13.3 (5-19); Blood Urea Nitrogen 19 mg/dL (8-23); Calcium 8.1 mg/dL (8.5-10.5); Carbon Dioxide 28 mmol/L (22-29); Chloride 98 mmol/L (98-107); Glomerular Filtration Rate 134.8 mL/min (90-130); Glucose 100 mg/dL (65-115); Osmolality Calculated 282 mOsm/kg (285-295); Potassium 4.3 mmol/L (3.5-5.1); Sodium 135 mmol/L (136-145)
--- NOTE | 2021-03-12 13:41 | PC.SOCIAL ---
IMM Update Pg.2 of IMM updated and reviewed with patient who verbalized understanding. Copy provided.
[2021-03-12] MEDS: docusate sodium 100 mg Capsule PO (17:02)
[2021-03-12] MEDS: enoxaparin 100 mg/mL Syringe SUBCUT (17:03)
[2021-03-12] MEDS: atorvastatin 40 mg Tablet PO (20:16)
[2021-03-12] MEDS: diphenhydrAMINE 25 mg Capsule PO (20:16)
[2021-03-13] VITALS (10 sets, daily range): BP systolic 105–134; BP diastolic 68–82; PULSE 73–93; RESP 17–18; TEMP 36.3–37.9; O2SAT 93–98
[2021-03-13] MEDS: oxyCODONE-APAP 5-325 mg Tablet PO (03:39)
[2021-03-13] MEDS: enoxaparin 100 mg/mL Syringe SUBCUT (06:41)
--- NOTE | 2021-03-13 07:40 | PM.PN ---
Subjective Subjective: Interval history: POD #4 status post CABG x3. Uneventful night. Remains in sinus rhythm. Up in chair on rounds. Wound VAC dressing removed. Sternotomy incision clean, dry, and intact. Sternum stable to palpation. Drain sites well approximated. Incision painted with Betadine and redressed. Pulling 2200 cc on incentive spirometry. Vitals/I&O/Wt Last Vital Signs Temp 98.2 F 03/13/21 07:23 Pulse 86 03/13/21 07:23 Resp 18 03/13/21 07:23 BP 128/79 03/13/21 07:23 Pulse Ox 96 03/13/21 07:23 03/12/21 03/13/21 03/13/21 22:59 06:59 14:59 Intake Total 960 / 2303 200 / 2503 Output Total 600 / 700 375 / 1075 100 / 100 Balance 360 / 1603 -175 / 1428 -100 / -100 Weight last 48 hrs Weight 240 lb Weight 237 lb Weight 236 lb 14.4 oz Physical Exam Chest: COMMONS NORMALS: normal inspection of the chest, normal palpation of entire chest wall and normal inspection of the breasts OTHER: Sternotomy incision intact and dry. Sternum stable. Resp: COMMON NORMALS: normal respiratory effort, No use of accessory muscles, clear to auscultation bilaterally and percussion normal AUSCULTATION: clear to auscultation bilaterally PERCUSSION: percussion normal Cardio: COMMON NORMALS: regular rate, regular rhythm, S1 normal heart sound present, No murmurs present (Cardio) and No rub (Cardio) RATE: regular rate RHYTHM: regular rhythm HEART SOUNDS: S1 normal heart sound present Extremity: COMMON NORMALS: no clubbing, cyanosis or edema Urinary Catheter Management^: Coulter: Cath Placed During This Visit: yes Reason for Continuing Indwelling Catheter: Accurate Measurement of Urinary Output in Critically Ill Patients Urinary Catheter Date of Insertion: 03/09/21 Urinary Catheter Time of Insertion: 07:00 Data : 03/12/21 03:43 03/12/21 11:30 Micro: Microbiology 03/09/21 17:55 Gram Stain - Final Sputum - Endotracheal Tube Aspirate Sputum Culture - Final A&P Assessment and plan (1) Status post aorto-coronary artery bypass graft: POD #4 status post CABG x3. Postop A. fib resolved. Making excellent progress. We will follow advice of Dr. Del Valle for rhythm management. I greatly appreciate her expertise and help. Plan: Betasept shower in the morning and discharge to home with home health services. Continue ambulation and use of incentive spirometry and pulmonary toilet. Status: Acute Attestations Medical Necessity Statement*: POD #4 status post CABG Time Spent in Patient Care: 16 - 35 minutes Procedures Arterial Line Size (Gauge): 20 Coding Level of Care Code Acute M1A1 Tank Crewman for Chg Fwd Diagnoses Status post aorto-coronary artery bypass graft Z95.1
[2021-03-13] MEDS: pantoprazole DR 40 mg Tablet PO (09:13)
[2021-03-13] MEDS: aspirin 81 mg Chew Tablet PO (09:13)
[2021-03-13] MEDS: amiodarone 200 mg Tablet 400 MG PO ×2 (09:13→18:19)
[2021-03-13] MEDS: metoprolol tartrate 25 mg Tablet PO (09:14)
[2021-03-13] MEDS: mupirocin oint 22 gm 1 APPLIC NASAL (09:15)
[2021-03-13] MEDS: lactulose oral liq 20 gm/30 mL UDC PO (09:16)
--- NOTE | 2021-03-13 10:29 | PC.NURSE ---
called in wound vac off patient to [facility] today at 1025, reference number [id number]
--- NOTE | 2021-03-13 12:00 | PC.NURSE ---
Addendum entered by Tracy Holden RN 03/13/21 12:07: Dr. Streeter notified, no new orders at this time. 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 temperature was decreased in patients room, he stated he felt fine. temperature was rechecked about 30 mins later and it was 98.3 orally
--- NOTE | 2021-03-13 12:42 | P.PN_ITS ---
Subjective Subjective: Interval history: POD # 4 s/p CABG x3, doing well. Getting ready to be discharged Medications: Reviewed: Yes Medication Review Details: Current Medications Al Hydrox/Mg Hydrox/Simethicone (Sqce-Wok-Qjjzosoof-Erwin 30 Ml Udc) 30 ml PO Q4H PRN PRN Reason: INDIGESTION Amiodarone HCl (Amiodarone 200 Mg Tablet) 400 mg PO BID [facility] Last Admin: 03/13/21 09:13 Dose: 400 mg Documented by: Aspirin (Aspirin 81 Mg Chew Tablet) 81 mg PO DAILY [facility] Last Admin: 03/13/21 09:13 Dose: 81 mg Documented by: Atorvastatin Calcium (Atorvastatin 40 Mg Tablet) 40 mg PO BEDTIME [facility] Last Admin: 03/12/21 20:16 Dose: 40 mg Documented by: Bisacodyl (Bisacodyl 5 Mg Tablet) 5 mg PO Q6H PRN PRN Reason: Constipation (Use 2nd) Bisacodyl (Bisacodyl 10 Mg Supp) 10 mg OH Q6H PRN PRN Reason: Constipation (Use 5th) Bismuth Subsalicylate (Bismuth Subsalicylate 240 Ml Btl) 30 ml PO PRN PRN PRN Reason: DIARRHEA Chlorhexidine Gluconate (Chlorhexidine Gluconate 0.12% Btl 473 Ml) 15 ml MUCOUS MEM BID [facility] Last Admin: 03/13/21 08:53 Dose: Not Given Documented by: Chlorhexidine Gluconate (Chlorhexidine Gluconate 4% Btl 118 Ml) 1 applic TOPICAL DAILY [facility] Diphenhydramine HCl (Diphenhydramine 25 Mg Capsule) 25 mg PO BEDTIME PRN PRN Reason: SLEEP Last Admin: 03/12/21 20:16 Dose: 25 mg Documented by: Docusate Sodium (Docusate Sodium 100 Mg Capsule) 100 mg PO BID PRN PRN Reason: Constipation (Use 1st) Last Admin: 03/12/21 17:02 Dose: 100 mg Documented by: Enoxaparin Sodium (Enoxaparin 100 Mg/Ml Syringe) 100 mg SUBCUT Q12H [facility] Last Admin: 03/13/21 06:41 Dose: 100 mg Documented by: Epinephrine (Racepinephrine 0.5 Ml Neb) 0.5 ml INHALATION Q6H.RESPIRATORY PRN PRN Reason: Stridor Guaifenesin (Guaifenesin 100 Mg/5 Ml Udc 10 Ml) 200 mg PO Q4H PRN PRN Reason: COUGH Amiodarone HCl 900 mg/Dextrose/ IV Miscellaneous Supplies 518 mls @ 0 mls/hr IV .Q0M [facility]; Protocol Last Titration: 03/12/21 08:25 Dose: Infused Documented by: Lactulose (Lactulose Oral Liq 20 Gm/30 Ml Udc) 20 gm PO Q6H PRN PRN Reason: Constipation (Use 3rd) Last Admin: 03/13/21 09:16 Dose: 20 gm Documented by: Magnesium Hydroxide (Magnesium Hydroxide 30 Ml Udc) 45 ml PO DAILY PRN PRN Reason: Constipation (use 4th) Metoprolol Tartrate (Metoprolol Tartrate 25 Mg Tablet) 25 mg PO BID@0900,2100 [facility] Last Admin: 03/13/21 09:14 Dose: 25 mg Documented by: Morphine Sulfate (Morphine 4 Mg/Ml Sdv 1 Ml) 2 mg IVP Q1H PRN PRN Reason: BREAKTHROUGH PAIN Last Admin: 03/10/21 22:57 Dose: 2 mg Documented by: Mupirocin (Mupirocin Oint 22 Gm) 1 applic NASAL BID [facility] Last Admin: 03/13/21 09:15 Dose: 1 applic Documented by: Naloxone HCl (Naloxone 0.4 Mg/Ml Sdv) 0.1 mg IVP Q2M PRN PRN Reason: OPIATERV Ondansetron HCl (Ondansetron 2 Mg/Ml Sdv 2 Ml) 4 mg IVP Q6H PRN PRN Reason: NAUSEA Oxycodone/Acetaminophen (Oxycodone-Apap 5-325 Mg Tablet) 1 - 2 tab PO Q6H PRN PRN Reason: MILD TO MODERATE PAIN Last Admin: 03/13/21 03:39 Dose: 1 tab Documented by: Pantoprazole Sodium (Pantoprazole Dr 40 Mg Tablet) 40 mg PO DAILY [facility] Last Admin: 03/13/21 09:13 Dose: 40 mg Documented by: Promethazine HCl (Promethazine 25 Mg Supp) 25 mg [place] Q6H PRN PRN Reason: NAUSEA AND VOMITING Vitals/I&O/Wt Last Vital Signs Temp 98.3 F 03/13/21 11:48 Pulse 73 03/13/21 11:48 Resp 18 03/13/21 11:48 BP 127/82 03/13/21 11:48 Pulse Ox 98 03/13/21 11:48 03/12/21 03/13/21 03/13/21 22:59 06:59 14:59 Intake Total 960 / 2303 200 / 2503 720 / 720 Output Total 600 / 700 375 / 1075 400 / 400 Balance 360 / 1603 -175 / 1428 320 / 320 Weight last 48 hrs Weight 240 lb Weight 237 lb Weight 236 lb 14.4 oz Physical Exam Narrative: EXAM NARRATIVE: EXAM NARRATIVE: Gen: sitting in chair, NAD HEENT: mild pallor, PERRL, EOMI Neck:No JVD appreciated Chest: midline sternotomy wound dressed RS: CTA except at bilateral bases; No wheezing or rales CVS:S1, S2 regular, No murmur, rub or gallop PA: soft, NTND, BS+ NA Ext:right sided trace edema and bruising noted DIRECTOR OF DONOR RELATIONS: AAOx 3, No FND Urinary Catheter Management^: Coulter: Cath Placed During This Visit: yes Reason for Continuing Indwelling Catheter: Accurate Measurement of Urinary Output in Critically Ill Patients Urinary Catheter Date of Insertion: 03/09/21 Urinary Catheter Time of Insertion: 07:00 Data : 03/12/21 03:43 03/12/21 11:30 Micro: Microbiology 03/09/21 17:55 Gram Stain - Final Sputum - Endotracheal Tube Aspirate Sputum Culture - Final A&P Assessment and plan (1) Status post aorto-coronary artery bypass graft: POD#4 CABG x 3 - Post op care per Dr. Streeter. -currently on ASA, statin and low dose metoprolol. Status: Acute (2) Atrial fibrillation with rapid ventricular response: -decrease amiodarone to 200 mg p.o. BID x 1 week and then 200 mg daily on discharge. Status: Acute (3) 3-vessel coronary artery disease: Status: Acute (4) LV dysfunction: Mild LV dysfunction. Status: Acute (5) HTN (hypertension): Status: Acute Qualifiers: Hypertension type: essential hypertension Qualified Code(s): I10 - Essential (primary) hypertension (6) Hyperlipidemia: Status: Acute Qualifiers: Hyperlipidemia type: unspecified Qualified Code(s): E78.5 - Hyperlipidemia, unspecified (7) Frequent PVCs: Status: Acute Attestations Medical Necessity Statement*: Stable to be discharged home from cardiac standpoint. Time Spent in Patient Care: 16 - 35 minutes (>than 50% of time spent in counselling and/or direct pt care on unit) . Procedures Arterial Line Size (Gauge): 20 Coding Level of Care Code Acute Harbor Master for Chg Fwd Diagnoses Status post aorto-coronary artery bypass graft Z95.1 Atrial fibrillation with rapid ventricular response I48.91 3-vessel coronary artery disease I25.10 LV dysfunction I51.9 HTN (hypertension) I10 Hypertension type: essential hypertension Hyperlipidemia E78.5 Hyperlipidemia type: unspecified Frequent PVCs I49.3
[2021-03-13] MEDS: chlorhexidine gluconate 4% Btl 118 mL 1 APPLIC TOPICAL (15:48)
--- NOTE | 2021-03-13 16:28 | P.DS_ITS ---
Discharge Providers Date of Admission: 03/09/21 15:15 Date of Discharge: March 13, 2021 Attending Provider at Admission: Jason Streeter MD Attending Provider at Discharge: Jason Streeter MD Diagnoses at Discharge Discharge Diagnosis (1) Status post aorto-coronary artery bypass graft: Status: Acute Permanent problem details: Status post CABG x3 on March 09, 2021 (2) Atrial fibrillation with rapid ventricular response: Status: Acute Permanent problem details: Postop A. fib resolved (3) 3-vessel coronary artery disease: Status: Acute (4) LV dysfunction: Status: Acute (5) HTN (hypertension): Status: Acute Qualifiers: Hypertension type: essential hypertension Qualified Code(s): I10 - Essential (primary) hypertension (6) Hyperlipidemia: Status: Acute Qualifiers: Hyperlipidemia type: unspecified Qualified Code(s): E78.5 - Hyperlipidemia, unspecified (7) Frequent PVCs: Status: Acute Permanent problem details: Frequent PVCs resolved Reason for Visit Reason for Visit: cabg Hospital Course Hospital Course Mr. Bo was electively admitted on March 09 for planned surgical revascularization for severe three-vessel coronary artery disease identified back in January following surgery for detached retina where he was noted to have frequent PVCs on EKG. Cardiac catheterization by Dr. Taylor revealed total occlusion of the circumflex artery past the first OMB. He also total occlusion of the RCA and an 80% lesion in the proximal LAD. After careful preoperative evaluation he was electively admitted and underwent CABG x3. Postop day, he has done quite well. He did have 1 episode of atrial fibrillation with RVR which lasted for about 12 hours. He failed electrical cardioversion but did convert spontaneously with IV amiodarone which is now been transitioned to oral form. He is also on Lipitor and metoprolol as well as aspirin. Chest has been discontinued by the third postop day. Tolerated diet well. Ambulating without assistance. Sternotomy incision is clean and dry. Sternum is stable. Bowel function has returned. He is voiding without difficulties. Sternotomy discomfort is under good control. [facility] health arrangements with [facility] have been completed. He will be discharged home today in a stable condition. We will continue amiodarone for 1 month. He will follow-up in my clinic in 1 week. We have also established primary care through [facility]. At discharge, he is in stable condition. Physical Exam Urinary Catheter Management^: Coulter: Cath Placed During This Visit: yes Reason for Continuing Indwelling Catheter: Accurate Measurement of Urinary Output in Critically Ill Patients Urinary Catheter Date of Insertion: 03/09/21 Urinary Catheter Time of Insertion: 07:00 Discharge Data Data Completed and Pending: Completed Studies During Hospitalization Category Date Time Status XR chest 1V jimmie ble [id number] Routine Exams 03/09/21 09:28 Completed XR chest 1V jimmie ble [id number] Routine Exams 03/10/21 06:00 Completed XR chest 1V jimmie ble [id number] Routine Exams 03/11/21 06:00 Completed XR chest 1V jimmie ble [id number] Routine Exams 03/12/21 04:00 Completed XR chest 2V* 7104 6 Routine Exams 03/04/21 12:30 Completed Pending at discharge Category Date Time Status Complete Crossmat ch Routine Lab 03/04/21 09:30 Results Leukocyte Reduced RBC Routine Lab 03/04/21 09:30 Results Type and Screen - Cardiac Routine Lab 03/04/21 09:30 Results Vitals: Last Vital Signs Temp 97.4 F L 03/13/21 15:56 Pulse 87 03/13/21 15:56 Resp 18 03/13/21 15:56 BP 127/75 03/13/21 15:56 Pulse Ox 95 03/13/21 15:56 Discharge Plan Discharge Patient Disposition: Home Health Service Condition: Stable Prescriptions: New hydrocodone-acetaminophen 5-325 mg tablet 1 tab PO Q6H PRN (Reason: pain) 8 Days Qty: 30 RF: 0 amiodarone [Pacerone] 200 mg Tablet 200 mg PO BID Qty: 35 RF: 1 atorvastatin 40 mg Tablet 40 mg PO BEDTIME Qty: 30 RF: 5 metoprolol tartrate 25 mg Tablet 25 mg PO BID@0900,2100 Qty: 60 RF: 5 Continued aspirin 81 mg tablet,delayed release (DR/EC) 81 mg PO DAILY Qty: 30 RF: 0 nitroglycerin 0.4 mg tablet, sublingual 0.4 mg sublingual Q5M PRN (Reason: chest pain) Qty: 30 RF: 3 Vitamin D3 10 mcg (400 unit) Capsule 10 mcg PO DAILY RF: 0 Vitamin C 1,000 mg Tablet 500 mg PO DAILY RF: 0 multivitamin Tablet 1 tab PO DAILY@2200 RF: 0 Discontinued metoprolol succinate 25 mg tablet extended release 24 hr 12.5 mg PO DAILY@2200 RF: 0 mupirocin 2 % ointment See Rx Instructions .ROUTE .COMPLEX RF: 0 chlorhexidine gluconate 0.12 % mouthwash See Rx Instructions .ROUTE .COMPLEX RF: 0 atorvastatin 20 mg tablet 20 mg PO DAILY@2200 RF: 0 No Action isosorbide mononitrate 10 mg tablet 10 mg PO BID@1100,2200 RF: 0 Discharge Orders: Discharge Order (Routine); Ordered 03/13/21 Ordered By: Jason Streeter Referrals: Obdulio Salamanca MD [Physician] - 03/20/21 7:00 am (You will have a new patient/hospital follow up appointment with Dr. Salamanca on March 24, 2021 at 07:00 am. If you have any questions or need to reschedule please call them at .) Jason Streeter MD [Physician] - 1 week Discharge Diet: Cardiac Discharge Activity: Limit activity as instructed Patient Instructions: Opioid Safety Activity Restrictions/Additional Instructions: May shower with dressings off No swimming or tub baths x2 weeks No lifting, pulling, or pushing with upper extremities more than 5 pounds for the next 6 weeks Dry incisions thoroughly after shower. Report any fever, incisional redness, swelling, drainage, or increasing pain. Report any increasing shortness of breath or weight gain over 10 pounds Use incentive spirometer frequently Keep heart pillow readily available to assist with coughing, deep breathing, or sneezing Discharge Attestations Time Spent in Discharge Care*: greater than 30 min Specific Discharge Activities: educating patient, educating and/or supporting family/caregiver, discussing with pcp/other providers, discussing with residential case manager/social workers/dc planners, documenting/other paperwork and evaluating patient/reviewing data Status at Discharge: Cognitive status at discharge: cognitively intact , Behavioral status at discharge: cooperative , Functional status at discharge: independent ambulation Overall status at discharge: patient is progressing back to baseline Quality Metrics Clinical Quality Measures During this hospital stay, did patient experience: None Coding Level of Care Code Acute Chg FW DC note Diagnoses Status post aorto-coronary artery bypass graft Z95.1 Atrial fibrillation with rapid ventricular response I48.91 3-vessel coronary artery disease I25.10 LV dysfunction I51.9 HTN (hypertension) I10 Hypertension type: essential hypertension Hyperlipidemia E78.5 Hyperlipidemia type: unspecified Frequent PVCs I49.3
--- NOTE | 2021-03-13 18:29 | PC.NURSE ---
discharge instructions given to pt and family, all questions answered appropriately.
== END 2021-03-13 18:40 | disposition home health service (06) | DRG 236 ==
LOC: ICU 15:34 → MEDSURG 03-12 10:47
PROVIDERS: Internal Medicine Cardiovascular Disease; Admitting Provider Thoracic Surgery (Cardiothoracic Vascular Surgery); Visit Provider Thoracic Surgery (Cardiothoracic Vascular Surgery)
PROC: 02100Z9 Bypass Coronary Artery, One Artery from Left Internal Mammary, Open Approach (ICD-10-PCS; principal; 2021-03-09 07:00)
PROC: 0BJ08ZZ Inspection of Tracheobronchial Tree, Via Natural or Artificial Opening Endoscopic (ICD-10-PCS; CPT 31622; 2021-03-09 07:00)
DX: I25.10 Atherosclerotic heart disease of native coronary artery without angina pectoris (principal); J95.89 Other postprocedural complications and disorders of respiratory system, not elsewhere classified; J98.11 Atelectasis; I97.190 Other postprocedural cardiac functional disturbances following cardiac surgery; I10 Essential (primary) hypertension; E78.5 Hyperlipidemia, unspecified; I48.91 Unspecified atrial fibrillation; I51.9 Heart disease, unspecified; I49.3 Ventricular premature depolarization
CPT/HCPCS: 36415; 36416; 71045; 71046; 80048; 80051; 80053; 80061; 80076; 81003; 82330; 82805; 82810; 82947; 82962; 83036; 83721; 83735; 84439; 84443; 84484; 85025; 85347; 85610; 85730; 86850; 86900; 86920; 87070; 87205; 87426; 93005; 94002; 94640; 94799; 96372; 97110; 97116; 97161; 97166; 97530; 97535; 99283; C9113; J0171; J0282; J0697; J1160; J1170; J1250; J1644; J1650; J1815; J1940; J2001; J2150; J2250; J2270; J2370; J2440; J2704; J2720; J3010; J3370; J3475; J3480; J3490; J7030; J7040; J7050; J7060; P9041; P9047

== ENCOUNTER → 2021-04-03 12:45 | Outpatient (BNVA) | payer MEDICARE, OTHER, SELFPAY | PROVIDERS: PCP Family Medicine Adult Medicine; Visit Provider Thoracic Surgery (Cardiothoracic Vascular Surgery) | DX: T81.41XA Infection following a procedure, superficial incisional surgical site, initial encounter (principal); T81.49XA Infection following a procedure, other surgical site, initial encounter; X58.XXXA Exposure to other specified factors, initial encounter | CPT/HCPCS: 87070; 87075; 87077; 87184; 87205 ==

== ENCOUNTER 2021-04-06 13:25 | Outpatient (CLI) | payer MEDICARE, OTHER, SELFPAY | END 2021-04-06 13:26 | disposition home or self-care (01) | LOC: WOUND 13:26 | PROVIDERS: PCP Family Medicine Adult Medicine; Visit Provider Thoracic Surgery (Cardiothoracic Vascular Surgery) | DX: L98.492 Non-pressure chronic ulcer of skin of other sites with fat layer exposed (principal) | CPT/HCPCS: 11042; G0463 ==

== ENCOUNTER 2021-04-13 14:48 | Outpatient (CLI) | payer MEDICARE, OTHER, SELFPAY | END 2021-04-13 14:49 | disposition home or self-care (01) | LOC: WOUND 14:49 | PROVIDERS: PCP Family Medicine Adult Medicine; Visit Provider Thoracic Surgery (Cardiothoracic Vascular Surgery) | DX: T81.31XA Disruption of external operation (surgical) wound, not elsewhere classified, initial encounter (principal); Y83.8 Other surgical procedures as the cause of abnormal reaction of the patient, or of later complication, without mention of misadventure at the time of the procedure | CPT/HCPCS: 11042; 87070; 87075; 87205 ==

== ENCOUNTER 2021-04-15 09:06 | Outpatient (RCR) | payer MEDICARE, OTHER, SELFPAY | END 2021-04-27 23:59 | disposition home or self-care (01) | LOC: CR 09:06 | PROVIDERS: Family Provider Family Medicine Adult Medicine; PCP Family Medicine Adult Medicine; Referring Provider Thoracic Surgery (Cardiothoracic Vascular Surgery); Visit Provider Thoracic Surgery (Cardiothoracic Vascular Surgery) | DX: Z95.1 Presence of aortocoronary bypass graft (principal) | CPT/HCPCS: 93798 ==

== ENCOUNTER 2021-04-22 15:31 | Outpatient (CLI) | payer MEDICARE, OTHER, SELFPAY | END 2021-04-22 15:32 | disposition home or self-care (01) | LOC: WOUND 15:32 | PROVIDERS: Family Provider Family Medicine Adult Medicine; PCP Family Medicine Adult Medicine; Visit Provider Nurse Practitioner Family | DX: T81.31XA Disruption of external operation (surgical) wound, not elsewhere classified, initial encounter (principal); Y83.8 Other surgical procedures as the cause of abnormal reaction of the patient, or of later complication, without mention of misadventure at the time of the procedure | CPT/HCPCS: 11042 ==

== ENCOUNTER 2021-04-28 10:34 | Outpatient (RCR) | payer MEDICARE, OTHER, SELFPAY | END 2021-05-27 23:59 | disposition home or self-care (01) | LOC: CR 10:34 | PROVIDERS: Family Provider Family Medicine Adult Medicine; PCP Family Medicine Adult Medicine; Referring Provider Thoracic Surgery (Cardiothoracic Vascular Surgery); Visit Provider Thoracic Surgery (Cardiothoracic Vascular Surgery) | DX: Z95.1 Presence of aortocoronary bypass graft (principal) | CPT/HCPCS: 93798 ==

== ENCOUNTER 2021-04-29 14:18 | Outpatient (CLI) | payer MEDICARE, OTHER, SELFPAY | END 2021-04-29 14:19 | disposition home or self-care (01) | LOC: WOUND 14:19 | PROVIDERS: Family Provider Family Medicine Adult Medicine; PCP Family Medicine Adult Medicine; Visit Provider Thoracic Surgery (Cardiothoracic Vascular Surgery) | DX: T81.31XA Disruption of external operation (surgical) wound, not elsewhere classified, initial encounter (principal); Y83.8 Other surgical procedures as the cause of abnormal reaction of the patient, or of later complication, without mention of misadventure at the time of the procedure | CPT/HCPCS: 97597 ==

== ENCOUNTER 2021-05-12 09:17 | Outpatient (CLI) | payer MEDICARE, OTHER, SELFPAY | END 2021-05-12 09:18 | disposition home or self-care (01) | LOC: WOUND 09:18 | PROVIDERS: Family Provider Family Medicine Adult Medicine; PCP Family Medicine Adult Medicine; Visit Provider Thoracic Surgery (Cardiothoracic Vascular Surgery) | DX: Z09 Encounter for follow-up examination after completed treatment for conditions other than malignant neoplasm (principal) | CPT/HCPCS: 99212 ==

== ENCOUNTER 2021-05-13 14:38 | Outpatient (CLI) | payer MEDICARE, OTHER, SELFPAY | END 2021-05-13 14:39 | disposition home or self-care (01) | LOC: WOUND 14:38 | PROVIDERS: Family Provider Family Medicine Adult Medicine; PCP Family Medicine Adult Medicine; Visit Provider Thoracic Surgery (Cardiothoracic Vascular Surgery) | DX: Z09 Encounter for follow-up examination after completed treatment for conditions other than malignant neoplasm (principal) | CPT/HCPCS: 10140; 99212; G0463 ==

== ENCOUNTER 2021-05-28 10:55 | Outpatient (RCR) | payer MEDICARE, OTHER, SELFPAY | END 2021-06-27 23:59 | disposition home or self-care (01) | LOC: CR 10:55 | PROVIDERS: Family Provider Family Medicine Adult Medicine; PCP Family Medicine Adult Medicine; Referring Provider Thoracic Surgery (Cardiothoracic Vascular Surgery); Visit Provider Thoracic Surgery (Cardiothoracic Vascular Surgery) | DX: Z95.1 Presence of aortocoronary bypass graft (principal) | CPT/HCPCS: 93798 ==

== ENCOUNTER 2021-06-29 13:21 | Outpatient (RCR) | payer MEDICARE, OTHER, SELFPAY | END 2021-07-23 14:47 | disposition home or self-care (01) | LOC: CR 13:21 | PROVIDERS: Family Provider Family Medicine Adult Medicine; PCP Family Medicine Adult Medicine; Referring Provider Thoracic Surgery (Cardiothoracic Vascular Surgery); Visit Provider Thoracic Surgery (Cardiothoracic Vascular Surgery) | DX: Z95.1 Presence of aortocoronary bypass graft (principal) | CPT/HCPCS: 93798 ==

== ENCOUNTER → 2021-07-06 11:13 | Outpatient (BNVA) | payer MEDICARE, OTHER, SELFPAY | PROVIDERS: Family Provider Family Medicine Adult Medicine; PCP Family Medicine Adult Medicine; Visit Provider Internal Medicine Cardiovascular Disease | DX: E78.5 Hyperlipidemia, unspecified (principal); I25.10 Atherosclerotic heart disease of native coronary artery without angina pectoris; Z95.1 Presence of aortocoronary bypass graft; I10 Essential (primary) hypertension | CPT/HCPCS: 80053; 80061; 83735; 85025 ==

== ENCOUNTER → 2022-04-02 09:25 | Outpatient (BNVA) | payer MEDICARE, OTHER, SELFPAY | PROVIDERS: Family Provider Family Medicine Adult Medicine; PCP Family Medicine Adult Medicine; Visit Provider Internal Medicine Cardiovascular Disease | DX: R00.2 Palpitations (principal); I11.9 Hypertensive heart disease without heart failure; I25.10 Atherosclerotic heart disease of native coronary artery without angina pectoris; Z95.1 Presence of aortocoronary bypass graft; E78.5 Hyperlipidemia, unspecified | CPT/HCPCS: 99213; 99214 ==

== ENCOUNTER → 2022-10-01 08:46 | Outpatient (BNVA) | payer MEDICARE, OTHER, SELFPAY | PROVIDERS: Family Provider Family Medicine Adult Medicine; PCP Family Medicine Adult Medicine; Visit Provider Internal Medicine Cardiovascular Disease | DX: I25.10 Atherosclerotic heart disease of native coronary artery without angina pectoris (principal); Z95.1 Presence of aortocoronary bypass graft; I11.9 Hypertensive heart disease without heart failure; E78.5 Hyperlipidemia, unspecified | CPT/HCPCS: 99214 ==

== ENCOUNTER → 2022-10-27 09:56 | Outpatient (BNVA) | payer MEDICARE, OTHER, SELFPAY | PROVIDERS: Family Provider Family Medicine Adult Medicine; PCP Family Medicine Adult Medicine; Visit Provider Family Medicine Adult Medicine | DX: I25.10 Atherosclerotic heart disease of native coronary artery without angina pectoris (principal); E78.5 Hyperlipidemia, unspecified; I10 Essential (primary) hypertension; Z95.1 Presence of aortocoronary bypass graft | CPT/HCPCS: 80053; 80061; 85025 ==

== ENCOUNTER → 2023-08-29 09:35 | Outpatient (BNVA) | payer MEDICARE, SELFPAY | PROVIDERS: Family Provider Family Medicine Adult Medicine; PCP Family Medicine Adult Medicine; Referring Provider Family Medicine Adult Medicine; Visit Provider Surgery | DX: Z12.11 Encounter for screening for malignant neoplasm of colon (principal) | CPT/HCPCS: 99024; 99203 ==

== ENCOUNTER → 2023-09-27 08:22 | Outpatient (BNVA) | payer OTHER, MEDICARE, SELFPAY | PROVIDERS: Family Provider Family Medicine Adult Medicine; PCP Family Medicine Adult Medicine; Visit Provider Family Medicine Adult Medicine | DX: I10 Essential (primary) hypertension (principal); E78.5 Hyperlipidemia, unspecified; Z00.00 Encounter for general adult medical examination without abnormal findings; I25.10 Atherosclerotic heart disease of native coronary artery without angina pectoris | CPT/HCPCS: 80053; 80061; 84443; 85025; G0103 ==

== ENCOUNTER → 2023-09-30 08:57 | Outpatient (BNVA) | payer OTHER, MEDICARE, SELFPAY | PROVIDERS: Family Provider Family Medicine Adult Medicine; PCP Family Medicine Adult Medicine; Visit Provider Internal Medicine Cardiovascular Disease | DX: I25.10 Atherosclerotic heart disease of native coronary artery without angina pectoris (principal); Z95.1 Presence of aortocoronary bypass graft; I11.9 Hypertensive heart disease without heart failure; E78.5 Hyperlipidemia, unspecified | CPT/HCPCS: 99214 ==

== ENCOUNTER 2023-10-13 07:34 | Day surgery (SDC) | payer OTHER, MEDICARE, SELFPAY ==
--- NOTE | 2023-10-13 07:33 | W.PM.OPSFHP ---
Same Day Surgery H&P Indication for Procedure/HPI DATE OF PROCEDURE: October 13, 2023 CHIEF COMPLAINT/INDICATIONFOR SURGICAL PROCEDURE: need for screening colonoscopy PREOP DIAGNOSIS: need for screening colonoscopy PLANNED PROCEDURE: Operation Date: 10/13/23 08:35 Proposed Procedures p 80761 colon, G0121 screen colon A risk, Z12.11(Not Applicable) - Alvin Wilson MD Medications/Allergies* Home Medications Medication Instructions Recorded Confirmed Type multivitamin 1 tab PO DAILY 03/08/21 10/11/23 History ascorbic acid (vitamin C) 1,000 mg 500 mg PO DAILY 03/09/21 10/11/23 History tablet (Vitamin C) cholecalciferol (vitamin D3) 10 10 mcg PO DAILY 03/09/21 10/11/23 History mcg (400 unit) capsule (Vitamin D3) Allergies/Adverse Reactions Allergy/AdvReac Type Severity Reaction Status Date / Time No Known Allergies Allergy Verified 10/11/23 12:06 Pertinent History/Comorbid Conditions* Medical History (Updated 09/27/23 @ 06:54 by Obdulio Salamanca MD) CAD (coronary artery disease) Frequent PVCs Frequent PVCs resolved HTN (hypertension) Hyperlipidemia LV dysfunction Normal colonoscopy Normal colonoscopy 2009, repeat 10/13/2023 Dr. Wilson Well adult on routine health check Surgical History (Updated 09/27/23 @ 06:54 by Obdulio Salamanca MD) Hx of appendectomy Hx of colonoscopy 15 yrs ago Status post aorto-coronary artery bypass graft Status post CABG x3 on March 09, 2021 Family History (Updated 12/15/20 @ 09:44 by Cindy Eric, KAYLYNN) Diabetes Mother Stroke Father Brother Social History Smoking and tobacco/nicotine status: never used tobacco/nicotine Alcohol intake: current Alcohol intake frequency: holidays/special occasions only Substance/Drug Use: never Pertinent Exam Findings alert, oriented x 3, clear to auscultation bilaterally and regular rate & rhythm Recommendations Surgery/Procedure today Coding Level of Care Code Acute Code for Chg Fwd Diagnoses
[2023-10-13 07:52] VITALS: BMI 28.1
[2023-10-13 08:00] VITALS: BP 130/78; PULSE 73; RESP 18; TEMP 36.2; O2SAT 100
[2023-10-13] MEDS: sodium chloride 0.9% 1,000 ML 30 ML IV (08:06)
--- NOTE | 2023-10-13 08:36 | ANES.PREANE2 ---
Pre-Anesthetic Assessment Height/Weight: Height 1.91 m Weight 102.058 kg Temp Pulse Resp BP Pulse Ox O2 Del Method 97.1 F L 73 18 130/78 100 Room Air 10/13/23 08:00 10/13/23 08:00 10/13/23 08:00 10/13/23 08:00 10/13/23 08:00 10/13/23 08:00 Preop Diagnosis: need for screening colonoscopy Operation Date: 10/13/23 08:35 Proposed Procedures p 36306 colon, G0121 screen colon A risk, Z12.11(Not Applicable) - Alvin Wilson MD Familial anesthetic complications: None Was Beta Sophie taken within 24 hours: Yes Was Clonidine taken within 24 hours: N/A Last intake: Intake Last Liquid Date 10/12/23 Last Liquid Time 22:30 Last Solid Date 10/11/23 Last Solid Time 19:30 Social No alcohol and No tobacco Exam alert, oriented x 3, clear to auscultation bilaterally and regular rate & rhythm Airway Mallampati: Class II Dentition: full CV/HEM Coronary Artery Disease (s/p Cabg 3 years ago, no residual cardiac symptoms) and Hypertension Metabolic Hyperlipidemia Anesthetic Plan ASA status: 3 Anesthesia: MAC Risk of > 500 ml blood loss (7ml/kg in children): No Medications/Allergies Home Medications Medication Instructions Recorded Confirmed Last Taken Type multivitamin 1 tab PO DAILY 03/08/21 10/13/23 10/12/23 History ascorbic acid (vitamin C) 1,000 mg 500 mg PO DAILY 03/09/21 10/13/23 10/12/23 History tablet (Vitamin C) cholecalciferol (vitamin D3) 10 10 mcg PO DAILY 03/09/21 10/13/23 10/12/23 History mcg (400 unit) capsule (Vitamin D3) nitroglycerin 0.4 mg sublingual 0.4 mg sublingual Q5M PRN chest 10/01/22 10/13/23 Unknown Rx tablet pain #30 tabs aspirin 81 mg tablet,delayed 81 mg PO DAILY #90 tabs 09/30/23 10/13/23 10/12/23 Rx release atorvastatin 40 mg tablet 40 mg PO BEDTIME #90 tabs 09/30/23 10/13/23 10/12/23 Rx metoprolol tartrate 25 mg tablet 25 mg PO BID@0900,2100 #180 tabs 09/30/23 10/13/23 10/12/23 Rx Allergies Allergy/AdvReac Type Severity Reaction Status Date / Time No Known Allergies Allergy Verified 10/13/23 07:51 Current Medications Generic Name Dose Route Start Last Admin Trade Name Elva PRN Reason Stop Dose Admin Sodium Chloride 1,000 mls @ 30 mls/hr 10/13/23 07:45 10/13/23 08:06 Sodium Chloride 0.9% IV 30 mls/hr .Q24H UNIQUE Administration PFSH Anesthesia Medical History CAD (coronary artery disease) Frequent PVCs Frequent PVCs resolved HTN (hypertension) Hyperlipidemia LV dysfunction Normal colonoscopy Normal colonoscopy 2009, repeat 10/13/2023 Dr. Wilson Well adult on routine health check Surgical History Hx of appendectomy Hx of colonoscopy 15 yrs ago Status post aorto-coronary artery bypass graft Status post CABG x3 on March 09, 2021 Family History Father Stroke Brother Stroke Mother Diabetes Social History Smoking and tobacco/nicotine status: never used tobacco/nicotine Alcohol intake: current Alcohol intake frequency: holidays/special occasions only Substance/Drug Use: never Data Anesthesia Cardiac Studies: Echocardiogram Ultrasound 10/17/20 Sestamibi Stress Test (Cardiology) 10/17/20 Holter Monitor 09/10/20
[2023-10-13 09:44] VITALS: BP 119/76; PULSE 60; RESP 20; TEMP 36.1; O2SAT 100
[2023-10-13 09:53] VITALS: BP 105/67; PULSE 64; RESP 16; O2SAT 97
--- NOTE | 2023-10-13 10:10 | ANE.PACU2 ---
Inpatient post-anesthesia follow up: Airway intact: Yes Vital signs: Temperature 97 F Pulse Rate 64 Respiratory Rate 16 Blood Pressure 105/67 Pulse Oximetry 97 Oxygen Delivery Me thod Room Air Oxygen Flow Rate 2 Fraction of Inspir ed Oxygen Hydration adequate: Yes Nausea and vomiting: No Pain level: 1 Mental status: Baseline
== END 2023-10-13 10:10 | disposition home or self-care (01) ==
PROVIDERS: Family Provider Family Medicine Adult Medicine; PCP Family Medicine Adult Medicine; Visit Provider Surgery
PROC: 0DJD8ZZ Inspection of Lower Intestinal Tract, Via Natural or Artificial Opening Endoscopic (ICD-10-PCS; CPT 45378; principal; 2023-10-13 08:35)
DX: Z12.11 Encounter for screening for malignant neoplasm of colon (principal); K62.1 Rectal polyp; K64.8 Other hemorrhoids; I25.10 Atherosclerotic heart disease of native coronary artery without angina pectoris; I10 Essential (primary) hypertension; Z95.1 Presence of aortocoronary bypass graft; E78.5 Hyperlipidemia, unspecified; Z79.82 Long term (current) use of aspirin
CPT/HCPCS: 45385; J2704; J7030

== ENCOUNTER → 2024-06-27 11:29 | Outpatient (BNVA) | payer MEDICARE, BC, SELFPAY | PROVIDERS: Family Provider Family Medicine Adult Medicine; PCP Family Medicine Adult Medicine; Visit Provider Family Medicine Adult Medicine | DX: I10 Essential (primary) hypertension (principal); I25.10 Atherosclerotic heart disease of native coronary artery without angina pectoris; R17 Unspecified jaundice; R97.20 Elevated prostate specific antigen [PSA] | CPT/HCPCS: 80053; 84153 ==

== ENCOUNTER 2024-07-05 06:55 | Outpatient (CLI) | payer MEDICARE, SELFPAY ==
--- NOTE | 2024-07-05 07:00 | US_ITS ---
WS: [id number] Complete ABDOMINAL ULTRASOUND HISTORY: elevated liver enzymes and T Ronnie COMPARISON: None available. Liver: 15.0 cm in length. Normal size liver and echogenicity. No bile duct dilatation or mass. Portal Vein: Normal hepatopetal flow with monophasic waveform. Gallbladder: Normally distended gallbladder. Numerous stones within the gallbladder. There is a moder ate-sized stone near the neck of the gallbladder. No pericholecystic fluid or wall thickening. CBD: 0.3 cm Pancreas: Poorly visualized. Right kidney: 10.4 cm x 6.6 x 5.5 cm. Cortex:1.4 cm. Normal size and echogenicity. No hydronephrosis or mass. Left kidney: 11.8 cm x 5.2 cm x 5.5 cm. Cortex: 1.1 cm. Normal size kidney. Hypoechoic mass with through transmission in the superior pole measures 2.8 x 3.0 x 2.3 cm. Spleen: 11.3 cm. Normal size and echogenicity. Aorta and IVC: Unremarkable abdominal aorta and IVC. US/US abdomen complete* [id number] Impression: 1. Cholelithiasis without acute cholecystitis. Numerous stones within the gall bladder. Stones within the gallbladder neck. Consider surgical consultation as patient is at risk for stone entrapment. 2. Hypoechoic mass with through transmission LEFT kidney is probably a cyst. T his can be further evaluated by renal mass CT protocol to confirm nonsolid mass .
== END 2024-07-05 06:56 | disposition home or self-care (01) ==
LOC: RAD 06:55
PROVIDERS: Family Provider Family Medicine Adult Medicine; PCP Family Medicine Adult Medicine; Visit Provider Family Medicine Adult Medicine
DX: K80.20 Calculus of gallbladder without cholecystitis without obstruction (principal); N28.1 Cyst of kidney, acquired; R17 Unspecified jaundice; R97.20 Elevated prostate specific antigen [PSA]; R74.8 Abnormal levels of other serum enzymes
CPT/HCPCS: 76700

== ENCOUNTER → 2024-07-06 15:43 | Outpatient (BNVA) | payer MEDICARE, SELFPAY | PROVIDERS: Family Provider Family Medicine Adult Medicine; PCP Family Medicine Adult Medicine; Visit Provider Family Medicine Adult Medicine | DX: R74.8 Abnormal levels of other serum enzymes (principal); R17 Unspecified jaundice | CPT/HCPCS: 80076 ==

== ENCOUNTER → 2024-08-14 12:58 | Outpatient (BNVA) | payer MEDICARE, SELFPAY | PROVIDERS: Family Provider Family Medicine Adult Medicine; PCP Family Medicine Adult Medicine; Visit Provider Surgery | DX: K82.9 Disease of gallbladder, unspecified | CPT/HCPCS: 99204; 99214 ==

== ENCOUNTER 2024-08-27 08:08 | Day surgery (SDC) | payer MEDICARE, SELFPAY ==
[2024-08-27] VITALS (10 sets, daily range): BP systolic 102–134; BP diastolic 62–76; PULSE 74–95; RESP 14–18; TEMP 36.1–36.4; O2SAT 97–100; BMI 26.9
--- NOTE | 2024-08-27 08:12 | P.ANESASSM_ITS ---
Pre-Anesthetic Assessment Height/Weight: Height 6 ft 3 in Preop Diagnosis: Cholelithiasis Operation Date: 08/27/24 09:50 Proposed Procedures p Laparoscopic possible open Cholecystectomy 25092, K80.20(Not Applicable) - Alvin Wilson MD Was Beta Sophie taken within 24 hours: Yes Was Clonidine taken within 24 hours: N/A Social No alcohol and No tobacco Exam alert, oriented x 3, clear to auscultation bilaterally and regular rate & rhythm Airway Submandibular: within normal limits Cervical ROM: within normal limits Mallampati: Class II Dentition: other (Few missing teeth) Anesthetic Plan ASA status: 2 Anesthesia: General Other: No prior issues with anesthesia NPO since midnight History of hypertension on metoprolol, taken this morning S/p CABG in 2020 EKG today showing sinus rhythm Labs 08/27/2024 reviewed and acceptable for surgery Patient does admit to having a few episodes of orthostatic hypotension the past few evenings. Denies any chest pain or shortness of breath Plan for GETA Medications/Allergies Home Medications Medication Instructions Recorded Confirmed Last Taken Type multivitamin 1 tab PO DAILY 03/08/21 08/23/24 08/26/24 History ascorbic acid (vitamin C) 1,000 mg 500 mg PO DAILY 03/09/21 08/23/24 08/26/24 History tablet (Vitamin C) cholecalciferol (vitamin D3) 10 10 mcg PO DAILY 03/09/21 08/23/24 08/26/24 History mcg (400 unit) capsule (Vitamin D3) aspirin 81 mg tablet,delayed 81 mg PO DAILY #90 tabs 09/30/23 08/23/24 08/26/24 Rx release metoprolol tartrate 25 mg tablet 25 mg PO BID@0900,2100 #180 tabs 09/30/23 08/23/24 08/27/24 07:00 Rx Allergies Allergy/AdvReac Type Severity Reaction Status Date / Time No Known Allergies Allergy Verified 08/23/24 16:51 [facility] Anesthesia Medical History Multiple gallstones Elevated liver enzymes Elevated PSA, less than 10 ng/ml Total bilirubin, elevated Well adult on routine health check Normal colonoscopy Normal colonoscopy 2009, repeat 10/13/2023 Dr. Wilson CAD (coronary artery disease) HTN (hypertension) Hyperlipidemia LV dysfunction Frequent PVCs Frequent PVCs resolved Surgical History Hx of colonoscopy 15 yrs ago Hx of appendectomy Status post aorto-coronary artery bypass graft Status post CABG x3 on March 09, 2021 Family History Father Stroke Brother Stroke Mother Diabetes Social History Smoking and tobacco/nicotine status: never used tobacco/nicotine Alcohol intake: current Alcohol intake frequency: holidays/special occasions only Substance/Drug Use: never Data Anesthesia 08/27/24 08:45 08/27/24 08:45 Cardiac Studies: 2 Echocardiogram Ultrasound 10/17/20 Sestamibi Stress Test (Cardiology) 10/17 Holter Monitor 09/10/20
[2024-08-27] MEDS: sodium chloride 0.9% 1,000 ML 30 ML IV (08:47)
[2024-08-27 08:52] LABS: Basophils % 0.4 %; Eosinophils # 0.1 10^3/uL (0.0-0.8); Eosinophils % 1.8 %; Hematocrit 33.2 % (37-53); Lymphocytes # 3.2 10^3/uL (0.8-4.8); Lymphocytes % 44.8 %; Mean Corpuscular HGB Conc 32.2 g/dL (30-55); Mean Corpuscular Hemoglobin 29.3 pg (27-33); Mean Platelet Volume 9.2 fL (7.4-10.4); Monocytes # 0.5 10^3/uL (0.2-0.9); Monocytes % 6.5 %; Neutrophils # 3.28 10^3/uL (1.8-7.7); Neutrophils % 46.2 %; Nucleated Red Blood Cells % 0 %; Platelet Count 266 10^3/cmm (157-399); Red Blood Count 3.65 10^6/uL (3.85-5.65); Red Cell Distribution Width 14.5 % (12.1-15.1)
--- NOTE | 2024-08-27 08:57 | ECG_ITS ---
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 Measurements Intervals [place] Rate: 82 P: 62 MS: 160 QRS: 3 QRSD: 115 T: 51 QT: 395 QTc: 463 Interpretive Statements SINUS RHYTHM Compared to ECG 03/11/2021 17:13:46 Atrial fibrillation no longer present Electronically Signed On 08-27-2024 18:55:07 CDT by Yoandy Marin M.D. [id number]
[2024-08-27 09:08] LABS: Alanine Aminotransferase 23 U/L (0-41); Albumin Level 4.1 g/dL (3.5-5.2); Alkaline Phosphatase 101 U/L (40-130); Anion Gap 12.1 (5-19); Aspartate Amino Transferase 25 U/L (0-40); Blood Urea Nitrogen 41 mg/dL (8-23); Calcium 8.6 mg/dL (8.5-10.5); Carbon Dioxide 26 mmol/L (22-29); Chloride 105 mmol/L (98-107); Creatinine Clr Calc Pharmacy 109.0211; Globulin 2.4 g/dL (1.3-4.6); Glomerular Filtration Rate 164.4 mL/min (90-130); Glucose 128 mg/dL (65-115); Osmolality Calculated 300 mOsm/kg (285-295); Potassium 4.1 mmol/L (3.5-5.1); Sodium 139 mmol/L (136-145); Total Bilirubin 1.3 mg/dL (0.15-1.2); Total Protein 6.5 g/dL (6.6-8.7)
--- NOTE | 2024-08-27 10:09 | W.PM.OPSUD ---
Surgery/Procedure H&P Update DATE OF PROCEDURE: August 27, 2024 DATE H&P PERFORMED: 08/14/24 H&P UPDATE INFORMATION: I have reviewed H&P completed within last 30 days, I have examined patient prior to procedure, No changes to prior documentation and H&P is in [facility] [place] EMR on date indicated PREOP DIAGNOSIS: Cholelithiasis PLANNED PROCEDURE: Operation Date: 08/27/24 09:50 Proposed Procedures p Laparoscopic possible open Cholecystectomy 84529, K80.20(Not Applicable) - Alvin Wilson MD
[2024-08-27] MEDS: ceFAZolin 2,000 mg SDV 2000 MG IVP (10:38)
[2024-08-27] MEDS: lidocaine-epi 1% 20 mL INJ INJECTION (12:30)
[2024-08-27] MEDS: BUPivacaine 0.25% INJ 10 mL INJECTION (12:30)
--- NOTE | 2024-08-27 12:48 | P.OP_ITS ---
Operative Report Date of procedure: August 27, 2024 Pre-op diagnosis: Symptomatic cholelithiasis Post-op diagnosis: Same Post-op findings: Normal biliary anatomy, distended gallbladder, adhesions from the duodenum to the infundibulum of the gallbladder. Fat-containing supraumbilical hernia measuring about 3 to 4 cm. Procedure done: Laparoscopic cholecystectomy Specimens removed/disposition: Gallbladder Surgeon: Alvin Wilson MD Senior Sql Server Developer: MARIA C OR STaff Estimated blood loss: 10 Complications: none Brief History: This a 69-year-old male with history of abdominal pain who had an ultrasound showed evidence of cholelithiasis, after discussion we will resume benefits of documented my preop note with side to proceed with lap juanita. Procedure: Patient was brought into the OR, he was placed in a supine position. General anesthesia was given. The abdomen was prepped and draped in the usual sterile fashion. Timeout was conducted. The abdomen was accessed via Optiview trocar at Edouard's point, initial pneumoperitoneum was obtained, no evidence of visceral injury during entry was noted. Under direct visualization additional 5 mm trocars were placed in the periumbilical, right flank and right upper quadrant locations. A 12 mm trocar was placed in the epigastrium also under direct visualization. The gallbladder was retracted cephalad by the fundus, I then grasped the infundibulum and retracted in the inferolateral direction, to expose the hepatocystic triangle. Adhesions from the duodenum to the area of the infundibulum were noted, these were carefully taken down with blunt dissection to prevent injury to the duodenum. I then used electrocautery to open the peritoneum anterior to the hepatocystic triangle, I carried this opening on the medial and lateral directions and then on the sides of the liver to allow for better exposure. With careful blunt dissection and electrocautery I was able to encircle the cystic artery and cystic duct. The lower third of th e gallbladder was elevated from the liver. Critical view of safety was obtained. The cystic artery and cystic duct were double clipped proximally and single clip distally and transected. The gallbladder was removed from the liver bed using electrocautery. Since the gallbladder was distended before removal from the abdomen I decompressed the gallbladder. The gallbladder was then retrieved via the epigastric trocar site in an Endo Catch bag. The fascia had to be dilated and the skin incision had to be increased in size due to the size of the stones inside of the gallbladder. The epigastric trocar was then closed using a Kevin-Caroline suture passer with a 0 Vicryl this was done under direct visualization. An additional layer of #0 Vicryl was used to close the anterior fascia, continuous visualization inside of the abdomen was achieved to prevent injury of intra-abdominal structures. The liver breath was evaluated no evidence of bleeding or bile leak was noted, the clips were noted to be in good position. No evidence of blood. The liver bed was irrigated. The periumbilical right upper quadrant and right flank trocars were removed under direct visualization the left upper quadrant trocar was used to evacuate the pneumoperitoneum and subsequently removed. The wounds were irrigated with saline. The epigastric wound was closed in layers using #3-0 Vicryl for the subcutaneous tissue and #4 Monocryl for the skin, the other wounds were closed with #4-0 Monocryl. Local anesthesia was infiltrated in every wound before closure. At the end of the procedure Dermabond was applied over the wounds. At the end of the procedure all counts were correct, the patient tolerated well the procedure and was transferred to the PACU in stable condition.
[2024-08-27] MEDS: oxyCODONE 5 mg IR Tab/Cap PO (14:34)
== END 2024-08-27 14:50 | disposition home or self-care (01) ==
PROVIDERS: Student in an Organized Health Care Education/Training Program; Family Provider Family Medicine Adult Medicine; PCP Family Medicine Adult Medicine; Visit Provider Surgery
PROC: 0FT44ZZ Resection of Gallbladder, Percutaneous Endoscopic Approach (ICD-10-PCS; CPT 47562; principal; 2024-08-27 09:40)
DX: K80.10 Calculus of gallbladder with chronic cholecystitis without obstruction (principal); I10 Essential (primary) hypertension; Z95.1 Presence of aortocoronary bypass graft; Z79.82 Long term (current) use of aspirin; I25.10 Atherosclerotic heart disease of native coronary artery without angina pectoris; E78.5 Hyperlipidemia, unspecified
CPT/HCPCS: 47562; 36415; 80053; 85025; 88304; 93005; J0690; J1100; J2405; J2704; J2710; J3010; J3490; J7030

== ENCOUNTER → 2024-09-12 11:35 | Outpatient (BNVA) | payer MEDICARE, SELFPAY | PROVIDERS: Family Provider Family Medicine Adult Medicine; PCP Family Medicine Adult Medicine; Visit Provider Surgery | DX: Z98.890 Other specified postprocedural states (principal); Z90.49 Acquired absence of other specified parts of digestive tract | CPT/HCPCS: 99024 ==

== ENCOUNTER → 2024-12-12 13:55 | Outpatient (BNVA) | payer MEDICARE, SELFPAY | PROVIDERS: Family Provider Family Medicine Adult Medicine; PCP Family Medicine Adult Medicine; Visit Provider Internal Medicine Cardiovascular Disease | DX: I25.10 Atherosclerotic heart disease of native coronary artery without angina pectoris (principal); I10 Essential (primary) hypertension; Z87.898 Personal history of other specified conditions; E78.5 Hyperlipidemia, unspecified | CPT/HCPCS: 99214 ==

== ENCOUNTER → 2024-12-31 12:02 | Outpatient (BNVA) | payer MEDICARE, SELFPAY | PROVIDERS: Family Provider Family Medicine Adult Medicine; PCP Family Medicine; Visit Provider Family Medicine | DX: D64.9 Anemia, unspecified (principal); I10 Essential (primary) hypertension; I25.10 Atherosclerotic heart disease of native coronary artery without angina pectoris; E78.5 Hyperlipidemia, unspecified; R73.01 Impaired fasting glucose; R74.8 Abnormal levels of other serum enzymes; R97.20 Elevated prostate specific antigen [PSA] | CPT/HCPCS: 80053; 80061; 82607; 83036; 83540; 84153; 84443; 85025 ==

== ENCOUNTER 2025-01-07 07:40 | Outpatient (CLI) | payer MEDICARE, SELFPAY ==
--- NOTE | 2025-01-07 07:45 | USCV_ITS ---
Reynaldo Bo Age: 69 Gender: M : 1955 Exam Date: 01/07/2025 07:54 Ordering Phys: Lashon Taylor MD ([email or web address]) Technologist: [place]am [place] [facility] [place]ication: CAD, SOB BP: 125 / 70 HR: 59 Rhythm: Sinus Technical Quality: Adequate MEASUREMENTS (Male / Female) Normal Values 2D ECHO LV Diastolic Diameter PLAX 6.2 cm 4.2 - 5.9 / 3.9 - 5.3 cm IVS Diastolic Thickness 1.2 cm 0.6 - 1.0 / 0.6 - 0.9 cm IVS Systolic Thickness 2.1 cm LVPW Diastolic Thickness 1.7 cm 0.6 - 1.0 / 0.6 - 0.9 cm LVPW Systolic Thickness 2.2 cm LVOT Diameter 2.2 cm LV Ejection Fraction 2D Teich 69.3 % LV Ejection Fraction MOD 4C 41.3 % LV Ejection Fraction MOD 2C 29.1 % LV Ejection Fraction 2C AL 31.4 % LA Diameter 2.7 cm RA Systolic Volume 4C AL 37.1 ml RA Systolic Volume 4C MOD 35.2 ml LA Sys Volume AL 48.6 cm cubed LA Sys Volume Index AL 21.6 cm cubed/m squared Aorta at Sinotubular Diameter 3.0 cm IVC Diameter 1.7 cm M-MODE LA Ao Ratio MM 1.4 AV Cusp Separation MM 2.6 cm DOPPLER AV Peak Velocity 103.0 cm/s LVOT Peak Velocity 82.0 cm/s AV Area Cont Eq vti 3.4 cm squared AV Area Cont Eq pk 3.0 cm squared MV Peak Velocity 78.0 cm/s MV Area PHT 4.9 cm squared Mitral E to A Ratio 1.2 TR Peak Velocity 146.0 cm/s TR Peak Gradient 8.5 mmHg TV Peak E Velocity 79.0 cm/s PV Peak Velocity 114.0 cm/s FINDINGS Left Ventricle Diffuse hypokinesia of the septum. Somewhat dyskinetic basal inferior wall segment. LV ejection fraction of 41%. Mildly dilated LV cavity. Right Ventricle The right ventricle is normal in size and function. Right Atrium The right atrium is normal in size. Left Atrium The left atrium is normal in size. Mitral Valve Mild mitral valve regurgitation. Aortic Valve Thickened aortic valve.[id number] aortic valve regurgitation. Tricuspid Valve Trace tricuspid valve regurgitation. Estimated pulmonary artery peak systolic pressure was not calculated because of the poor Doppler signals Pulmonic Valve No gross abnormalities noted Pericardium Normal pericardium without effusion. Aorta Normal ascending aorta dimension. IVC Normal inferior vena cava. CONCLUSIONS Diffuse hypokinesia of the septum. Somewhat dyskinetic basal inferior wall segment. LV ejection fraction of 41%. Mildly dilated LV cavity. Mild mitral valve regurgitation. Thickened aortic valve.[id number] aortic valve regurgitation. Trace tricuspid valve regurgitation. Estimated pulmonary artery peak systolic pressure was not calculated because of the poor Doppler signals. There is no pericardial effusion. There are no intracardiac masses. Compared to the study from 10/27/2020, there is a slight drop in the ejection fraction from 45 -50% to 41% Dr Philomena Garcia MD [facility] (Electronically Signed) Final Date: 07 January 2025 21:32 S
== END 2025-01-07 07:41 | disposition home or self-care (01) ==
LOC: RAD 07:41
PROVIDERS: Family Provider Family Medicine Adult Medicine; PCP Family Medicine; Visit Provider Internal Medicine Cardiovascular Disease
DX: I25.10 Atherosclerotic heart disease of native coronary artery without angina pectoris (principal); R06.02 Shortness of breath; R93.1 Abnormal findings on diagnostic imaging of heart and coronary circulation; I51.7 Cardiomegaly; I34.0 Nonrheumatic mitral (valve) insufficiency; I35.8 Other nonrheumatic aortic valve disorders; I35.1 Nonrheumatic aortic (valve) insufficiency
CPT/HCPCS: 93306